=== PATIENT | male | born 1985 | race African-American/Black ===

== ENCOUNTER 2016-03-14 12:01 | Inpatient (IN) | payer MEDICAID, OTHER ==
--- NOTE | 2016-03-14 12:25 | ED ---
General Adult HPI - General Chief complaint: Psychiatric Symptoms Stated complaint: Mental Health Time Seen by Provider: 03/14/16 12:05 Source: patient, RN notes reviewed Mode of arrival: ambulatory - History of Present Illness Initial comments: Long-standing history of depression and previous suicide attempts but not for many years. Patient states he was living in [place] he moved here recently in the last month got a job but was recently fired. Patient states he also is going through divorce a lot of stress in his life. Patient states for about a month now he has been very depressed and thinking about suicide. Patient states lately the thoughts become worse and he is worried is going to attempt something. Patient states he is also homeless. Patient denies any physical complaints today. Patient denies any headache patient denies numbness weakness. Patient denies any chest pain difficult breathing or shortness of breath per patient denies abdominal pain patient denies nausea vomiting or diarrhea. Patient denies any recent injury or trauma. Patient denies any alcohol use or drug use. - Related Data Home Medications Medication Instructions Recorded Confirmed OLANZapine 20 mg PO HS 03/14/16 03/14/16 carBAMazepine [TEGretol] 200 mg PO Q12H 03/14/16 03/14/16 clonazePAM [Clonazepam] 2 mg PO TID PRN 03/14/16 03/14/16 Allergies Allergy/AdvReac Type Severity Reaction Status Date / Time No Known Allergies Allergy Verified 03/14/16 13:36 Review of Systems ROS Statement: Those systems with pertinent positive or pertinent negative responses have been documented in the HPI. ROS Other: All systems not noted in ROS Statement are negative. Past Medical History Past Medical History: No Reported History History of Any Multi-Drug Resistant Organisms: None Reported Past Surgical History: Orthopedic Surgery Additional Past Surgical History / Comment(s): left arm, left jaw Past Psychological History: Bipolar, Depression Smoking Status: Never smoker Past Alcohol Use History: Occasional Past Drug Use History: None Reported General Exam - General Exam Comments Initial Comments: GENERAL: Patient is well-developed and well-nourished. Patient is nontoxic and well- hydrated and is in no acute distress. ENT: Neck is soft and supple. No significant lymphadenopathy is noted. Oropharynx is clear. Moist mucous membranes. Neck has full range of motion without eliciting any pain. EYES: The sclera were anicteric and conjunctiva were pink and moist. Extraocular movements were intact and pupils were equal round and reactive to light. Eyelids were unremarkable. PULMONARY: Unlabored respirations. Good breath sounds bilaterally. No audible rales rhonchi or wheezing was noted. CARDIOVASCULAR: There is a regular rate and rhythm without any murmurs gallops or rubs. ABDOMEN: Soft and nontender with normal bowel sounds. SKIN: Skin is clear with no lesions or rashes and otherwise unremarkable. NEUROLOGIC: Patient is alert and oriented x3. Cranial nerves II through XII are grossly intact. Motor and sensory are also intact. Normal speech, volume and content. Symmetrical smile. MUSCULOSKELETAL: Normal extremities with adequate strength and full range of motion. No lower extremity swelling or edema. No calf tenderness. LYMPHATICS: No significant lymphadenopathy is noted PSYCHIATRIC: Patient states she is suicidal. Patient is very flat affect. Patient seems pretty upset with the fact that his life is in disarray at the moment. Course Vital Signs 03/14/16 03/14/16 12:07 13:59 Temperature 98.9 F Pulse Rate 85 Respiratory 18 14 Rate Blood Pressure 121/67 O2 Sat by Pulse 99 Oximetry Medical Decision Making - Lab Data Lab Results 03/14/16 Range/Units 13:10 Urine Opiates Screen Detected H (NotDetected) Ur Oxycodone Screen Not Detected (NotDetected) Urine Methadone Screen Not Detected (NotDetected) Ur Propoxyphene Screen Not Detected (NotDetected) Ur Barbiturates Screen Not Detected (NotDetected) U Tricyclic Antidepress Not Detected (NotDetected) Ur Phencyclidine Scrn Not Detected (NotDetected) Ur Amphetamines Screen Not Detected (NotDetected) U Methamphetamines Scrn Not Detected (NotDetected) U Benzodiazepines Scrn Not Detected (NotDetected) Urine Cocaine Screen Not Detected (NotDetected) U Marijuana (THC) Screen Detected H (NotDetected) Disposition Clinical Impression: Depression, Suicidal ideation Disposition: ADMITTED IP TO THIS [facility] Time of Disposition: 14:57
[2016-03-14] MEDS ORDERED: MAGNESIUM HYDROXIDE 2,400 MG/10 ML CUP PO PRN (16:55)
[2016-03-14] MEDS ORDERED: ZIPRASIDONE 20 MG VIAL IM PRN (16:55)
[2016-03-14] MEDS ORDERED: MAG HYDROX/AL HYDROX/SIMETH 30 ML CUP PO PRN (16:55)
[2016-03-14] MEDS ORDERED: ACETAMINOPHEN TAB 325 MG TAB PO PRN (16:55)
[2016-03-14] MEDS ORDERED: LORazepam 2 MG/ML SYRINGE IM PRN (16:59)
[2016-03-14 17:13] LABS: Appearance,Urine Clear (Clear); Bilirubin,Urine Negative (Negative); Glucose,Urine (UA) Negative (Negative); Ketones,Urine Negative (Negative); Leukocyte Esterase,Urine Negative (Negative); Nitrite,Urine Negative (Negative); Protein,Urine Negative (Negative); UA Billing (MACRO vs. MICRO) CHEM; Urobilinogen,Urine <2.0 mg/dL (<2.0)
[2016-03-14] MEDS ORDERED: WATER FOR INJECTION, STERILE 10 ML IV ONE (21:04)
[2016-03-14] MEDS ORDERED: ZIPRASIDONE 20 MG VIAL IM ONE (21:04)
[2016-03-14] MEDS: carBAMazepine 200 MG TAB PO SCH (22:38)
[2016-03-14] MEDS: OLANZapine 10 MG TAB PO SCH (22:39)
[2016-03-15] MEDS: LORazepam 1 MG TAB PO PRN ×2 (10:07→22:49)
[2016-03-15] MEDS: carBAMazepine 200 MG TAB PO SCH ×2 (10:07→21:36)
[2016-03-15 10:08] LABS: Basophils # (A) 0.1 k/uL (0-0.2); Basophils % (A) 1 %; CH 29.9; CHCM 34.3; Eosinophils # (A) 0.2 k/uL (0-0.7); Eosinophils % (A) 3 %; HDW 2.24; HGB 15.4 gm/dL (13.0-17.5); Luc # (Auto) 0.12; Luc % (Auto) 2; Lymphocytes # (A) 2.5 k/uL (1.0-4.8); Lymphocytes % (A) 47 %; MCH 29.4 pg (25.0-35.0); MCHC 33.5 g/dL (31.0-37.0); MCV 87.6 fL (80.0-100.0); Mean Platelet Volume 6.7; Monocytes # (A) 0.3 k/uL (0-1.0); Monocytes % (A) 6 %; Neutrophils # (A) 2.2 k/uL (1.3-7.7); Neutrophils % (A) 41 %; RBC 5.25 m/uL (4.30-5.90); RDW 12.2 % (11.5-15.5); WBC 5.3 k/uL (3.8-10.6); WBC (Perox) 5.35
[2016-03-15 11:34] LABS: ALT 35 U/L (21-72); AST 22 U/L (17-59); Alkaline Phosphatase 62 U/L (38-126); Anion Gap 9 mmol/L; Blood Urea Nitrogen 15 mg/dL (9-20); Calcium 9.2 mg/dL (8.4-10.2); Carbamazepine (Tegretol) <3.0 ug/mL; Carbon Dioxide 26 mmol/L (22-30); Chloride 106 mmol/L (98-107); Glucose 90 mg/dL (74-99); Non-African American GFR(MDRD) >60 (>60 ml/min/1.73 sqM); Potassium 4.2 mmol/L (3.5-5.1); Sodium 141 mmol/L (137-145); Total Bilirubin 0.5 mg/dL (0.2-1.3)
[2016-03-15] MEDS ORDERED: LORazepam 1 MG TAB PO STA (13:41)
--- NOTE | 2016-03-15 13:44 | P.HP ---
Psychiatric H&P - . H&P Date: 03/15/16 History & Physical: IDENTIFYING DATA: Mr. Benton is a 31-year-old -[place] male who presented voluntarily to the psychiatric unit. HISTORY OF PRESENT ILLNESS: He presented to the ED on 03/14/2016 with complaints of hopelessness, increasing depression and thoughts of suicide. The Mobile Crisis Team evaluated him and recommended discharge. The ED was planning to discharge him home when he made a statement that if he went home he would "hurt himself". When the EPS nurse evaluated him in the ED he was angry and demanding food. However he denied suicidal ideation, plan or intent. Once on the psychiatric unit he was agitated, screaming and threatening staff. He was demanding "sleeping medications". His behavior escalated to where he required administration of Geodon 20 mg and lorazepam 1 mg IM. During our interview he complained of anxiety and requested a prescription for his anxiety. He also complained of depression related to several stressors. He from his and moved back to [place] 2 months ago. He lived for one week with his family but left because he purportedly didn't want to impose on their hospitality. He is now living in the basement of a amish, [facility]. He stated he may return and the marketing and communications officer does not charge him rent only requires him to attend services. He was terminated from his job with a [employer] 2 days prior to admission. He worked there for the company for 2 weeks and was discharged for poor performance. He also expressed concern about his 10-year-old daughter who appears to have a congenital heart abnormality and may require surgery. During our interview he denied thoughts of or suicide. He was medication seeking and repeatedly asked to receive lorazepam. He described feelings depression and he alleged that he has poor sleep with difficulty falling and remaining asleep. He complained of guilt over the separation from his and loss of employment. He described restlessness. He denied decreased interest or pleasure in his usual activities, impairment in concentration, changes in appetite. He denied psychotic symptoms such as auditory or visual hallucinations, ideas reference, thought insertion, thought broadcasting or thought control. He denied use of drugs with the exception of marijuana. He denied use of alcohol. PAST PSYCHIATRIC HISTORY: This is his third admission to this psychiatric unit; the last was in July 2011 where he presented with restlessness, feelings depression and increase in anxiety. He expressed suicidal ideation with a plan to cut his wrists with a knife or take overdose of prescription medications. His discharge diagnoses included bipolar disorder, mixed, generalized anxiety disorder, panic disorder with agoraphobia and cluster B personality traits. He stated that he is enrolled with [facility] and Dr. Romano is his psychiatrist. He is unaware of his current medications. He stated that he was hospitalized "6 or 7 times" when he lived in [place] for 2 years. According to the medical record she has a history of ADHD. ALLERGIES: NO KNOWN DRUG ALLERGIES.. SUBSTANCE USE HISTORY: He has a history of cannabis use and has incurred legal problems as resulted marijuana possession. He denied the use of other drugs such as heroin, cocaine, crack cocaine, methamphetamine etc. He was involved in a substance abuse treatment program when he was incarcerated because his UDS was positive for marijuana. FAMILY PSYCHIATRIC/SUBSTANCE USE HISTORY: He is unaware of a family history of mental illness. LEGAL HISTORY: He was in halfway in 2014 for charges of assault and battery and 2 control substance possession offense. He has had multiple arrests for charges such as home invasion, possession of marijuana, disturbing the peace and domestic violence. He has no felony charges. He denied pending charges. He is not on probation or parole. SOCIAL HISTORY: He was born in [facility] to an intact family. He left school in the 10th grade. He was in special education. He had suspensions related to behavioral problems but denied that he was expelled. He did not obtain his GED. He could not explain the reason for leaving school in the 10th grade other than he "did not like it" and his parents did not insist that her return. After he left school he "partied". He is currently unemployed and receives social security disability. He stated he has been receiving services security disability since he was a child. He from his of 2 years. He has one child age 10 out of wedlock. The daughter lives with her mother. MENTAL STATUS EXAM: He presented as a casually groomed and casually dressed 31- year-old -[place] male who is moderately obese. He maintained eye contact and attended the interview. He had a 8 cm healed laceration on his left forearm and tattoos along the medial aspect of both forearms. He had a bright facial expression. He was alert and oriented to person, place and time. He demonstrated no abnormality of psychomotor activity. He had no abnormal movements. His speech was spontaneous with normal rate, rhythm and volume. He had no articulation difficulties. His affect was stable, appropriate to the situation and setting. He did not appear depressed, anxious or elated. He denied suicidal ideation or wishes. He denied homicidal ideation. He denied feeling hopeless, helpless or worthless. He denied ideas of reference and did not express paranoid ideation. His thinking was concrete but his associations were coherent and logical. He did not demonstrate clang associations, perseveration, neologisms or blocking. He denied hallucinations and did not appear to be responding to internal stimuli. Global impression of intellect is below average. He has some awareness or understanding of his need for mental health treatment. STRENGTHS: Stable income, apparently stable housing, supportive family, good physical health. WEAKNESSES: Impulsivity, continued marijuana use. IMPRESSION: He has a 31-year-old male who presented with complaints of depression, irritability and anger. He says periods of increasing anger when his immediate needs are are not met. Otherwise he is pleasant on approach and denies symptoms other than anxiety and feelings of depression. There is no evidence of psychosis and he does not demonstrate sustained elevation in mood or sustained irritability suggestive of kaylie or hypomania. He has a history of marijuana use but denied use of other drugs. He has either mild mental retardation or learning disability. His presentation appears per related to several stresses including suboptimal housing, loss of employment and recent divorce. We will restart his outpatient treatment regimen didn't discharge him to outpatient services through [facility]. PRINCIPLE DIAGNOSIS: Adjustment disorder with disturbance of mood and conduct, cannabis use disorder, rule out bipolar disorder depressed RECOMMENDATION: Continue voluntary hospitalization for complaints of depression and anxiety. Obtain records from [facility] to clarify his outpatient treatment history and psychotropic medications. Continue Tegretol 20 mg every 12 and olanzapine 20 mg at bedtime. Continue Geodon 20 mg IM twice a day when necessary for agitation as well as lorazepam 1 mg by mouth/IM every 8 hours when necessary for agitation, encourage participation in therapeutic groups and activities. Clinical status response to treatment on a daily basis. Consider discharge to [facility] on 03/16/2016. Allergies Allergy/AdvReac Type Severity Reaction Status Date / Time No Known Allergies Allergy Verified 03/14/16 13:36 Vital Signs Temp 97.8 F 03/15/16 06:43 Pulse 61 03/15/16 06:43 Resp 18 03/15/16 06:43 BP 105/71 03/15/16 06:43 Pulse Ox 99 03/14/16 16:30 Intake & Output 03/14/16 03/15/16 03/15/16 18:59 06:59 18:59 Weight 115.2 kg Laboratory Last Values Urine Color Yellow 03/14/16 13:10 Urine Appearance Clear (Clear) 03/14/16 13:10 Urine pH 6.0 (5.0-8.0) 03/14/16 13:10 Ur Specific [place] 1.020 (1.001-1.035) 03/14/16 13:10 Urine Protein Negative (Negative) 03/14/16 13:10 Urine Glucose (UA) Negative (Negative) 03/14/16 13:10 Urine Ketones Negative (Negative) 03/14/16 13:10 Urine Blood Negative (Negative) 03/14/16 13:10 Urine Nitrate Negative (Negative) 03/14/16 13:10 Urine Bilirubin Negative (Negative) 03/14/16 13:10 Urine Urobilinogen <2.0 mg/dL (<2.0) 03/14/16 13:10 Ur Leukocyte Esterase Negative (Negative) 03/14/16 13:10 Urine Opiates Screen Detected (NotDetected) H 03/14/16 13:10 Ur Oxycodone Screen Not Detected (NotDetected) 03/14/16 13:10 Urine Methadone Screen Not Detected (NotDetected) 03/14/16 13:10 Ur Propoxyphene Screen Not Detected (NotDetected) 03/14/16 13:10 Ur Barbiturates Screen Not Detected (NotDetected) 03/14/16 13:10 U Tricyclic Antidepress Not Detected (NotDetected) 03/14/16 13:10 Ur Phencyclidine Scrn Not Detected (NotDetected) 03/14/16 13:10 Ur Amphetamines Screen Not Detected (NotDetected) 03/14/16 13:10 U Methamphetamines Scrn Not Detected (NotDetected) 03/14/16 13:10 U Benzodiazepines Scrn Not Detected (NotDetected) 03/14/16 13:10 Urine Cocaine Screen Not Detected (NotDetected) 03/14/16 13:10 U Marijuana (THC) Screen Detected (NotDetected) H 03/14/16 13:10 03/15/16 08:00 03/15/16 13:05 03/15/16 13:18
--- NOTE | 2016-03-15 15:24 | P.CONS ---
History of Present Illness - Reason for Consult Consult date: 03/15/16 Medical management - History of Present Illness This is a 31-year-old -Ang[place] male. He does not have a primary care physician. He has a past medical history of bipolar and depression, tobacco use and dependence, marijuana use. Patient apparently recently moved from [place] to the area. He has established himself with Dr. Romano from psychiatry. He states he has had long-term depression with suicidal thoughts over the past week. He states he is going through divorce and their health problems with his daughter. Patient denies taking any action regarding his suicidal thoughts. Patient came into [facility]. Urine drug screen was positive for opiates and marijuana. TSH 1.940. Patient was admitted to the mental health unit. Patient has had aggressive behavior today requiring multiple security guards but he is currently very cooperative for us. Patient states he has chronic muscle spasms in his back. Review of Systems All systems: negative Constitutional: Denies chills, Denies fever Eyes: denies blurred vision, denies pain Ears, nose, mouth and throat: Denies headache, Denies sore throat Cardiovascular: Denies chest pain, Denies shortness of breath Respiratory: Denies cough Gastrointestinal: Denies abdominal pain, Denies diarrhea, Denies nausea, Denies vomiting Musculoskeletal: Denies myalgias Integumentary: Denies pruritus, Denies rash Neurological: Denies numbness, Denies weakness Psychiatric: Reports depression, Reports hopelessness, Reports suicidal ideation , Denies anxiety Endocrine: Denies fatigue, Denies weight change Past Medical History Past Medical History: No Reported History History of Any Multi-Drug Resistant Organisms: None Reported Past Surgical History: Orthopedic Surgery Additional Past Surgical History / Comment(s): ORIF left arm, nasal surgery due to fracture, left jaw Past Psychological History: Bipolar, Depression Smoking Status: Current every day smoker Past Alcohol Use History: Occasional Additional Past Alcohol Use History / Comment(s): Patient is a smoker of a 12: 45 half pack per day for 15 years. He also uses marijuana. He drinks alcohol occasionally. He denies any other street drug use. He states he is going through a divorce. He is currently homeless and living at a [facility]. Past Drug Use History: None Reported - Past Family History Father Additional Family Medical History / Comment(s): Father is alive at age 59 with history of hypertension. Mother Additional Family Medical History / Comment(s): Mother is alive at age 61 with history of coronary artery disease status post CABG, CVA. Brother(s) Additional Family Medical History / Comment(s): Patient has 2 brothers and one has problems with kidney stones. Patient has 1 sister with no major medical problems. Patient has 1 daughter that is having problems with her heart. Medications and Allergies Home Medications Medication Instructions Recorded Confirmed Type OLANZapine 20 mg PO HS 03/14/16 03/14/16 History carBAMazepine [TEGretol] 200 mg PO Q12H 03/14/16 03/14/16 History clonazePAM [Clonazepam] 2 mg PO TID PRN 03/14/16 03/14/16 History Allergies Allergy/AdvReac Type Severity Reaction Status Date / Time No Known Allergies Allergy Verified 03/14/16 13:36 Physical Exam Vitals: Vital Signs Temp Pulse Resp BP 03/15/16 06:43 97.8 F 61 18 105/71 03/14/16 22:28 98.7 F 67 15 126/70 Intake and Output 03/14/16 03/15/16 03/15/16 22:59 06:59 14:59 Other: Weight 115.2 kg Gen: This is a 31-year-old -[place] male. He is cooperative and appears to be in no acute distress. HEENT: Head is atraumatic, normocephalic. Pupils equal, round. Sclerae is anicteric. NECK: Supple. No JVD. No lymphadenopathy. No thyromegaly. LUNGS: Clear to auscultation. No wheezes or rhonchi. No intercostal retractions. HEART: Regular rate and rhythm. No murmur. ABDOMEN: Soft. Bowel sounds are present. No masses. No tenderness. EXTREMITIES: No pedal edema. No calf tenderness. NEUROLOGICAL: Patient is awake, alert and oriented x3. Cranial nerves 2 through 12 are grossly intact. Results CBC & Chem 7: 03/15/16 09:12 03/15/16 09:12 Assessment and Plan Plan: 1. Depression with suicidal thoughts. Patient admitted to the mental health unit. Continue current plan of care. 2. Tobacco use and dependence. Continue nicotine patch. 3. Marijuana use. Continue as in #1. 4. Chronic low back pain, stable. Continue Tylenol as needed. Impression and plan of care have been directed as dictated by the signing physician. Moraima Jacob nurse practitioner acting as scribe for signing physician. Time with Patient: Greater than 30
[2016-03-15] MEDS: OLANZapine 10 MG TAB PO SCH (21:36)
[2016-03-16 06:05] VITALS: BP 116/76; PULSE 62; RESP 20; TEMP 97.5
[2016-03-16] MEDS: carBAMazepine 200 MG TAB PO SCH (08:40)
[2016-03-16] MEDS ORDERED: FAMOTIDINE 20 MG TAB PO SCH (09:00)
[2016-03-16] MEDS ORDERED: NICOTINE 14MG/24HR PATCH TRANSDERM SCH (09:00)
--- NOTE | 2016-03-16 11:04 | P.DS ---
Providers Date of admission: 03/14/16 16:30 Attending physician: Caden Hubbard MD Consults: 03/14/16 16:55 Consult Physician Routine Consulting Provider: Caden Beltran Consult Reason/Comments: Follow Up H & P Do you want consulting provider notified?: Yes Primary care physician: Stated None - Discharge Diagnosis(es) (1) Adjustment disorder with mixed disturbance of emotions and conduct Status: Resolved Priority: Low (2) Cannabis use disorder, mild, abuse Status: Chronic Priority: Medium (3) Opioid use disorder, mild, abuse Status: Chronic Priority: Medium (4) Suicidal ideation Status: Resolved Priority: Low Hospital Course: Mr. Benton is a 31-year-old -Mexican male who presented voluntarily to the psychiatric unit. He presented to the ED on 03/14/2016 with complaints of hopelessness, increasing depression and thoughts of suicide. The Mobile Crisis Team evaluated him and recommended discharge. The ED was planning to discharge him home when he made a statement that if he went home he would "hurt himself". When the EPS nurse evaluated him in the ED he was angry and demanding food. However he denied suicidal ideation, plan or intent. Once on the psychiatric unit he was agitated, screaming and threatening staff. He was demanding "sleeping medications". His behavior escalated to where he required administration of Geodon 20 mg and lorazepam 1 mg IM. During our interview he complained of anxiety and requested a prescription for his anxiety. He also complained of depression related to several stressors. He from his and moved back to [place] 2 months ago. He lived for one week with his family but left because he purportedly didn't want to impose on their hospitality. He is now living in the basement of a mandaen, [facility]. He stated he may return and the sales enablement lead does not charge him rent only requires him to attend services. He was terminated from his job with a [employer] 2 days prior to admission. He worked there for the [employer] for 2 weeks and was discharged for poor performance. He also expressed concern about his 10-year-old daughter who appears to have a congenital heart abnormality and may require surgery. During our interview he denied thoughts of or suicide. He was medication seeking and repeatedly asked to receive lorazepam. He described feelings depression and he alleged that he has poor sleep with difficulty falling and remaining asleep. He complained of guilt over the separation from his and loss of employment. He described restlessness. He denied decreased interest or pleasure in his usual activities, impairment in concentration, changes in appetite. He denied psychotic symptoms such as auditory or visual hallucinations, ideas reference, thought insertion, thought broadcasting or thought control. He denied use of drugs with the exception of marijuana. He denied use of alcohol. This is his third admission to this psychiatric unit; the last was in July 2011 where he presented with restlessness, feelings depression and increase in anxiety. He expressed suicidal ideation with a plan to cut his wrists with a knife or take overdose of prescription medications. His discharge diagnoses included bipolar disorder, mixed, generalized anxiety disorder, panic disorder with agoraphobia and cluster B personality traits. He stated that he is enrolled with [facility] and Dr. Romano is his psychiatrist. He is unaware of his current medications. He stated that he was hospitalized "6 or 7 times" when he lived in [place] for 2 years. According to the medical record she has a history of ADHD. We admitted him voluntarily to the psychiatric unit under the care of this script writer. We provided a biopsychosocial assessment. The healthcare risk control consultant clinical sociologist completed the initial physical exam and medical history. The medical diagnoses include tobacco use disorder, marijuana use and chronic low back pain. His UDS was positive for opiates and cannabinoids. He admitted to using marijuana but denied use of opiate (he has a history of use of oral opioid pain medications). We continued his outpatient medications: Tegretol 200 mg every 12 hours and olanzapine 200 mg at bedtime. He had intermitted episodes of anger dyscontrol require administration of Geodon 20 mg and/or lorazepam 1 mg. The episodes of behavioral dyscontrol occurred in situations where he did not feel that his needs were met, e.g. When the wrong food item was included on his breakfast tray. We declined his request for clonazepam 2 mg 3 times a day because clonazepam was not included in his active perceptions list from [facility]. At time of discharge she denied thoughts of or suicide. He denied homicidal ideation. He denied psychotic symptoms such as auditory or visual hallucinations, ideas reference, thought insertion, thought broadcasting or thought control. He denied feeling depressed. He plan to live with his parents temporarily before he returns to the basement apartment after discharge. He has a follow-up appointment at [facility] on the day of discharge. Patient Condition at Discharge: Good Plan - Discharge Summary New Discharge Prescriptions: Famotidine [Pepcid] 20 mg PO DAILY 30 Days Nicotine 14Mg/24Hr Patch [Habitrol] 1 patch TRANSDERM DAILY #14 patch OLANZapine 20 mg PO HS #30 tablet carBAMazepine [TEGretol] 200 mg PO Q12H 30 Days Discharge Medication List Famotidine [Pepcid] 20 mg PO DAILY 30 Days 03/16/16 [Rx] Nicotine 14Mg/24Hr Patch [Habitrol] 1 patch TRANSDERM DAILY #14 patch 03/16/16 [ Rx] OLANZapine 20 mg PO HS #30 tablet 03/16/16 [Rx] carBAMazepine [TEGretol] 200 mg PO Q12H 30 Days 03/16/16 [Rx] Follow up Appointment(s)/Referral(s): [facility] [Outside] - 03/16/16 3:30 pm (Appt w/ Rachael Lund (ROD) 03/17/16 at 12:40 pm w/ Dr. Romano) None,Stated [Primary Care Provider] - 1-2 days Patient Instructions/Handouts: How to Stop Smoking (GEN) Discharge Disposition: HOME SELF-CARE
== END 2016-03-16 09:58 | disposition home or self-care (01) | DRG 882 ==
LOC: EC 12:01 → 3MHU 16:30
PROVIDERS: ADMIT Psychiatry & Neurology Psychiatry; ATTEND Psychiatry & Neurology Psychiatry
DX: F43.25 Adjustment disorder with mixed disturbance of emotions and conduct (principal); R45.851 Suicidal ideations; F11.10 Opioid abuse, uncomplicated; F12.90 Cannabis use, unspecified, uncomplicated; F17.200 Nicotine dependence, unspecified, uncomplicated; Z59.0 Homelessness; Z91.5 Personal history of self-harm; Z79.899 Other long term (current) drug therapy
CPT/HCPCS: 80053; 80156; 80306; 81003; 82075; 84443; 85025

== ENCOUNTER 2016-05-15 01:15 | Emergency (ER) | payer OTHER ==
[2016-05-15] MEDS ORDERED: IPRATROPIUM-ALBUTEROL 3 ML NEB INHALATION STA (01:42)
--- NOTE | 2016-05-15 01:51 | ED ---
URI HPI - General Chief Complaint: Upper Respiratory Infection Stated Complaint: cough Time Seen by Provider: 05/15/16 01:35 Source: patient, RN notes reviewed Mode of arrival: ambulatory Limitations: no limitations - History of Present Illness Initial Comments: Patient is a 29-year-old male with chief complaint of cough and fatigue for the past 2 days. Patient reports that he has flulike symptoms including body aches. He hasn't been taking Motrin or Tylenol. He denies any fever. He states he does have a mild sore throat. He denies any nausea or vomiting or abdominal pain. He does have a history of asthma and is a smoker. He states that he's noticed that his asthma is been acting up and he sat to use his inhaler more. Patient reports that he has noticed some blood tinges towards his cough. Patient denies vomiting, nausea, headache, vision changes, chest pain , abdominal pain, diarrhea. - Related Data Previous Rx's Medication Instructions Recorded Azithromycin [Zithromax Z-pack] 250 mg PO DIRECTED #6 tab 05/15/16 methylPREDNISolone Dose Pack 4 mg PO DIRECTED #21 package 05/15/16 [Medrol Dose Pack] Allergies Allergy/AdvReac Type Severity Reaction Status Date / Time No Known Allergies Allergy Verified 05/15/16 01:34 Review of Systems ROS Statement: Those systems with pertinent positive or pertinent negative responses have been documented in the HPI. ROS Other: All systems not noted in ROS Statement are negative. Past Medical History Past Medical History: No Reported History History of Any Multi-Drug Resistant Organisms: None Reported Past Surgical History: Orthopedic Surgery Additional Past Surgical History / Comment(s): ORIF left arm, nasal surgery due to fracture, left jaw Past Psychological History: Bipolar, Depression Smoking Status: Current every day smoker Past Alcohol Use History: Occasional Additional Past Alcohol Use History / Comment(s): Patient is a smoker of a 12: 45 half pack per day for 15 years. He also uses marijuana. He drinks alcohol occasionally. He denies any other street drug use. He states he is going through a divorce. He is currently homeless and living at a [facility]. Past Drug Use History: None Reported - Past Family History Father Additional Family Medical History / Comment(s): Father is alive at age 59 with history of hypertension. Mother Additional Family Medical History / Comment(s): Mother is alive at age 61 with history of coronary artery disease status post CABG, CVA. Brother(s) Additional Family Medical History / Comment(s): Patient has 2 brothers and one has problems with kidney stones. Patient has 1 sister with no major medical problems. Patient has 1 daughter that is having problems with her heart. General Exam - General Exam Comments Initial Comments: Well-appearing 31-year-old male. No acute distress. Limitations: no limitations General appearance: alert, in no apparent distress Head exam: Present: atraumatic, normocephalic, normal inspection Eye exam: Present: normal appearance, PERRL, EOMI. Absent: scleral icterus, conjunctival injection, periorbital swelling ENT exam: Present: normal exam, mucous membranes moist Neck exam: Present: normal inspection. Absent: tenderness, meningismus, lymphadenopathy Respiratory exam: Present: normal lung sounds bilaterally, wheezes (Bilateral wheezing.). Absent: respiratory distress, rales, rhonchi, stridor Cardiovascular Exam: Present: regular rate, normal rhythm, normal heart sounds. Absent: systolic murmur, diastolic murmur, rubs, gallop, clicks GI/Abdominal exam: Present: soft, normal bowel sounds. Absent: distended, tenderness, guarding, rebound, rigid Extremities exam: Present: normal inspection, full ROM, normal capillary refill. Absent: tenderness, pedal edema, joint swelling, calf tenderness Back exam: Present: normal inspection Neurological exam: Present: alert, oriented X3, CN II-XII intact Psychiatric exam: Present: normal affect, normal mood Skin exam: Present: warm, dry, intact, normal color. Absent: rash Course Vital Signs 05/15/16 05/15/16 05/15/16 01:32 01:49 01:59 Temperature 98.7 F Pulse Rate 93 94 94 Respiratory 18 Rate Blood Pressure 125/63 O2 Sat by Pulse 99 Oximetry 05/15/16 03:00 Temperature 98.8 F Pulse Rate 98 Respiratory 20 Rate Blood Pressure 139/89 O2 Sat by Pulse 97 Oximetry Medical Decision Making - Medical Decision Making Patient is a 29-year-old male with chief complaint of cough and fatigue for the past 2 days. Patient reports that he has flulike symptoms including body aches. He hasn't been taking Motrin or Tylenol. He denies any fever. He states he does have a mild sore throat. He denies any nausea or vomiting or abdominal pain. He does have a history of asthma and is a smoker. He states that he's noticed that his asthma is been acting up and he sat to use his inhaler more. Peggyt does have some wheezing over bilateral lung bases. Patient given Duoneb treatment. CXR is negative. Patient will be discharged with medrol dose pack and azithromycin for the productive cough. Return parameters discussed. - Lab Data Lab Results 05/15/16 05/15/16 Range/Units 01:40 01:44 Influenza Type A RNA Not Detected (Not Detectd) Influenza Type B (PCR) Not Detected (Not Detectd) Group A Strep Rapid Negative (Negative) - Radiology Data Radiology results: report reviewed Chest x-ray shows no significant change. No evidence of pneumonia or pleural effusions. Disposition Clinical Impression: Cough, Fatigue Disposition: HOME SELF-CARE Condition: Good Instructions: Upper Respiratory Infection (ED) Additional Instructions: Rest, increase fluids and take medications as prescribed. Stop smoking. Follow -up with a primary care provider. Complete antibiotic and steroid prescription as directed. Return to emergency department if any worsening signs or symptoms occur. Prescriptions: Azithromycin [Zithromax Z-pack] 250 mg PO DIRECTED #6 tab methylPREDNISolone Dose Pack [Medrol Dose Pack] 4 mg PO DIRECTED #21 package Referrals: None,Stated [Primary Care Provider] - 1-2 days Jenni Hess MD [STAFF PHYSICIAN] - 1-2 days Time of Disposition: 02:44
--- NOTE | 2016-05-15 02:06 | XR ---
EXAM: XR Chest, 2 Views. CLINICAL HISTORY: Reason: Pain TECHNIQUE: Frontal and lateral views of the chest. COMPARISON: 02/11/16 radiographs FINDINGS: Lungs: The lungs are stable without new focal infiltrate. Pleural space: Unremarkable. No pneumothorax. Heart: Unremarkable. No cardiomegaly. Mediastinum: Unremarkable. Bones/joints: Unremarkable. IMPRESSION: No significant change. No new acute intrathoracic abnormality is seen.
[2016-05-15] MEDS ORDERED: guaiFENesin-DM 100-10MG/5ML 10 ML CUP PO STA (02:48)
[2016-05-15] MEDS ORDERED: PROMETHAZ-COD 6.25-10 MG/5 ML 5 ML CUP PO STA (02:52)
[2016-05-15 03:01] VITALS: BP 139/89; PULSE 98; RESP 20; TEMP 98.8
== END 2016-05-15 03:00 | disposition home or self-care (01) ==
LOC: EC 01:15
DX: R05 Cough (principal); R53.83 Other fatigue; J02.9 Acute pharyngitis, unspecified; J45.909 Unspecified asthma, uncomplicated; F17.200 Nicotine dependence, unspecified, uncomplicated
CPT/HCPCS: 71020; 87081; 87430; 87502; 94640; 99284

== ENCOUNTER 2016-06-19 12:13 | Emergency (ER) | payer OTHER ==
[2016-06-19 12:22] VITALS: PULSE 68; RESP 18
--- NOTE | 2016-06-19 12:23 | ED ---
General Adult HPI - General Stated complaint: suicidal Time Seen by Provider: 06/19/16 12:13 Source: RN notes reviewed - History of Present Illness Initial comments: This is a 31-year-old male who presents emergency department with past medical history significant for bipolar. Patient states she's on medications but he stopped taking them 2 months ago. Patient comes in today because he states over the last few days he's been having more more suicidal thoughts and is afraid to take a knife and cut his wrists. Patient states she's also homicidal but not toward anyone person just generally feels like he might harm somebody else. Patient denies any drug use or alcohol use. Patient denies any physical complaints today. Patient denies headache patient denies numbness weakness. Patient denies lightheadedness dizziness or near syncopal episode. Patient denies chest pain palpitations difficulty breathing shortness of breath. Patient denies abdominal pain patient denies nausea vomiting or diarrhea. - Related Data Home Medications Medication Instructions Recorded Confirmed carBAMazepine [Carbamazepine] 200 mg PO BID 06/19/16 06/19/16 clonazePAM [KlonoPIN] 2 mg PO TID PRN 06/19/16 06/19/16 Allergies Allergy/AdvReac Type Severity Reaction Status Date / Time No Known Allergies Allergy Verified 06/19/16 12:35 Review of Systems ROS Statement: Those systems with pertinent positive or pertinent negative responses have been documented in the HPI. ROS Other: All systems not noted in ROS Statement are negative. Past Medical History Past Medical History: No Reported History History of Any Multi-Drug Resistant Organisms: None Reported Past Surgical History: Orthopedic Surgery Additional Past Surgical History / Comment(s): ORIF left arm, nasal surgery due to fracture, left jaw Past Psychological History: Bipolar, Depression Smoking Status: Current every day smoker Past Alcohol Use History: Occasional Additional Past Alcohol Use History / Comment(s): Patient is a smoker of a 12: 45 half pack per day for 15 years. He also uses marijuana. He drinks alcohol occasionally. He denies any other street drug use. He states he is going through a divorce. He is currently homeless and living at a [facility]. Past Drug Use History: None Reported - Past Family History Father Additional Family Medical History / Comment(s): Father is alive at age 59 with history of hypertension. Mother Additional Family Medical History / Comment(s): Mother is alive at age 61 with history of coronary artery disease status post CABG, CVA. Brother(s) Additional Family Medical History / Comment(s): Patient has 2 brothers and one has problems with kidney stones. Patient has 1 sister with no major medical problems. Patient has 1 daughter that is having problems with her heart. General Exam - General Exam Comments Initial Comments: GENERAL: Patient is well-developed and well-nourished. Patient is nontoxic and well- hydrated and is in no acute distress. ENT: Neck is soft and supple. No significant lymphadenopathy is noted. Oropharynx is clear. Moist mucous membranes. . EYES: The sclera were anicteric and conjunctiva were pink and moist. Extraocular movements were intact and pupils were equal round and reactive to light. Eyelids were unremarkable. PULMONARY: Unlabored respirations. Good breath sounds bilaterally. No audible rales rhonchi or wheezing was noted. CARDIOVASCULAR: There is a regular rate and rhythm without any murmurs gallops or rubs. ABDOMEN: Soft and nontender with normal bowel sounds. SKIN: Skin is clear with no lesions or rashes and otherwise unremarkable. NEUROLOGIC: Patient is alert and oriented x3. Cranial nerves II through XII are grossly intact. Motor and sensory are also intact. Normal speech, volume and content. Symmetrical smile. MUSCULOSKELETAL: Normal extremities with adequate strength and full range of motion. LYMPHATICS: No significant lymphadenopathy is noted PSYCHIATRIC: Patient states he suicidal and homicidal. Patient is not homicidal any specific individual however he does have a plan for suicide he states the right his wrists Course Vital Signs 06/19/16 12:16 Temperature 98.0 F Pulse Rate 68 Respiratory 18 Rate Blood Pressure 131/77 O2 Sat by Pulse 100 Oximetry Disposition Clinical Impression: Bipolar disorder Disposition: HOME SELF-CARE Instructions: Bipolar Disorder (ED) Additional Instructions: Patient will be following up with [facility]. [facility] will be giving the patient arrived home and developing a safety plan for the patient Time of Disposition: 14:00
[2016-06-19 15:21] VITALS: BP 125/74; TEMP 98.2
== END 2016-06-19 15:20 | disposition home or self-care (01) ==
LOC: EC 12:13
DX: F31.9 Bipolar disorder, unspecified (principal); F17.200 Nicotine dependence, unspecified, uncomplicated; Z79.899 Other long term (current) drug therapy
CPT/HCPCS: 80306; 82075; 99285

== ENCOUNTER 2016-06-20 15:33 | Inpatient (IN) | payer MEDICAID, OTHER ==
--- NOTE | 2016-06-20 15:54 | ED ---
General Adult HPI - General Chief complaint: Psychiatric Symptoms Stated complaint: Psych Time Seen by Provider: 06/20/16 15:44 Source: patient, police, EMS, RN notes reviewed Mode of arrival: EMS Limitations: no limitations - History of Present Illness Initial comments: Patient is a 31-year-old male presenting to the emergency Department with aggression and anger. Patient is brought in by police. Patient admits to feeling suicidal yesterday however states those thoughts have passed. Patient states he does normally get angry following an episode of depression and suicidal thoughts. Patient states his thoughts are more of anger rather than specific thoughts of killing people. Patient [facility] where he was informed he would not be receiving additional Klonopin. Reportedly patient made statements of homicidal ideation towards his parents. Police officers do state that [facility] did notify the parents. Patient denies physical complaints. No hallucinations. No alcohol or street drug use. - Related Data Home Medications Medication Instructions Recorded Confirmed carBAMazepine [Carbamazepine] 200 mg PO BID 06/19/16 06/20/16 clonazePAM [KlonoPIN] 2 mg PO TID PRN 06/19/16 06/20/16 Allergies Allergy/AdvReac Type Severity Reaction Status Date / Time No Known Allergies Allergy Verified 06/20/16 15:37 Review of Systems ROS Statement: Those systems with pertinent positive or pertinent negative responses have been documented in the HPI. ROS Other: All systems not noted in ROS Statement are negative. Constitutional: Denies: fever Eyes: Denies: eye pain ENT: Denies: ear pain Respiratory: Denies: cough Cardiovascular: Denies: chest pain Endocrine: Denies: fatigue Gastrointestinal: Denies: abdominal pain Genitourinary: Denies: dysuria Musculoskeletal: Denies: back pain Skin: Denies: rash Neurological: Denies: headache Psychiatric: Reports: depression. Denies: auditory hallucinations, visual hallucinations Past Medical History Past Medical History: No Reported History History of Any Multi-Drug Resistant Organisms: None Reported Past Surgical History: Orthopedic Surgery Additional Past Surgical History / Comment(s): ORIF left arm, nasal surgery due to fracture, left jaw Past Psychological History: Bipolar, Depression Smoking Status: Current every day smoker Past Alcohol Use History: Occasional Additional Past Alcohol Use History / Comment(s): Patient is a smoker of a 12: 45 half pack per day for 15 years. He also uses marijuana. He drinks alcohol occasionally. He denies any other street drug use. He states he is going through a divorce. He is currently homeless and living at a [facility]. Past Drug Use History: None Reported - Past Family History Father Additional Family Medical History / Comment(s): Father is alive at age 59 with history of hypertension. Mother Additional Family Medical History / Comment(s): Mother is alive at age 61 with history of coronary artery disease status post CABG, CVA. Brother(s) Additional Family Medical History / Comment(s): Patient has 2 brothers and one has problems with kidney stones. Patient has 1 sister with no major medical problems. Patient has 1 daughter that is having problems with her heart. General Exam Limitations: no limitations General appearance: alert, in no apparent distress Head exam: Present: atraumatic Eye exam: Present: normal appearance, PERRL ENT exam: Present: normal oropharynx Neck exam: Present: normal inspection Respiratory exam: Present: normal lung sounds bilaterally Cardiovascular Exam: Present: regular rate, normal rhythm GI/Abdominal exam: Present: soft. Absent: tenderness Extremities exam: Present: normal inspection Neurological exam: Present: alert Psychiatric exam: Present: normal affect, normal mood, other (Patient is cooperative at this time) Skin exam: Absent: rash Course Vital Signs 06/20/16 15:41 Temperature 98.2 F Pulse Rate 69 Respiratory 18 Rate Blood Pressure 114/56 O2 Sat by Pulse 98 Oximetry Medical Decision Making - Medical Decision Making Patient was seen by mental health services, who will admit. - Lab Data Lab Results 06/20/16 Range/Units 15:58 Urine Opiates Screen Not Detected (NotDetected) Ur Oxycodone Screen Not Detected (NotDetected) Urine Methadone Screen Not Detected (NotDetected) Ur Propoxyphene Screen Not Detected (NotDetected) Ur Barbiturates Screen Not Detected (NotDetected) U Tricyclic Antidepress Not Detected (NotDetected) Ur Phencyclidine Scrn Not Detected (NotDetected) Ur Amphetamines Screen Not Detected (NotDetected) U Methamphetamines Scrn Not Detected (NotDetected) U Benzodiazepines Scrn Detected H (NotDetected) Urine Cocaine Screen Not Detected (NotDetected) U Marijuana (THC) Screen Detected H (NotDetected) Disposition Clinical Impression: Homicidal ideation, Bipolar disorder Disposition: TRANSFER TO PSYCH HOSP/UNIT Time of Disposition: 17:01
[2016-06-20] MEDS ORDERED: ZIPRASIDONE 20 MG VIAL IM STA (18:00)
[2016-06-20] MEDS ORDERED: MAGNESIUM HYDROXIDE 2,400 MG/10 ML CUP PO PRN (20:31)
[2016-06-20] MEDS ORDERED: ZIPRASIDONE 20 MG VIAL IM PRN (20:31)
[2016-06-20] MEDS ORDERED: MAG HYDROX/AL HYDROX/SIMETH 30 ML CUP PO PRN (20:31)
[2016-06-20] MEDS ORDERED: LORazepam 2 MG/ML SYRINGE IM PRN (20:36)
[2016-06-20 20:58] VITALS: BMI 39.7
[2016-06-21] MEDS: LORazepam 1 MG TAB PO PRN ×3 (00:17→20:59)
[2016-06-21] MEDS: NICOTINE 21MG/24HR PATCH TRANSDERM SCH (08:19)
[2016-06-21 09:46] LABS: Basophils # (A) 0.1 k/uL (0-0.2); Basophils % (A) 1 %; CHCM 32.9; Eosinophils # (A) 0.2 k/uL (0-0.7); Eosinophils % (A) 2 %; HCT 49.2 % (39.0-53.0); HDW 2.08; HGB 16.4 gm/dL (13.0-17.5); Luc # (Auto) 0.14; Luc % (Auto) 2; Lymphocytes # (A) 2.8 k/uL (1.0-4.8); Lymphocytes % (A) 38 %; MCH 30.6 pg (25.0-35.0); MCHC 33.4 g/dL (31.0-37.0); MCV 91.5 fL (80.0-100.0); Mean Platelet Volume 6.9; Monocytes # (A) 0.3 k/uL (0-1.0); Monocytes % (A) 4 %; Neutrophils # (A) 3.8 k/uL (1.3-7.7); Neutrophils % (A) 53 %; RBC 5.37 m/uL (4.30-5.90); RDW 12.6 % (11.5-15.5); WBC 7.3 k/uL (3.8-10.6); WBC (Perox) 7.25
[2016-06-21 10:07] LABS: ALT 25 U/L (21-72); AST 22 U/L (17-59); Alkaline Phosphatase 60 U/L (38-126); Anion Gap 8 mmol/L; Blood Urea Nitrogen 15 mg/dL (9-20); Calcium 9.7 mg/dL (8.4-10.2); Carbon Dioxide 29 mmol/L (22-30); Chloride 103 mmol/L (98-107); Glucose 96 mg/dL (74-99); Non-African American GFR(MDRD) >60 (>60 ml/min/1.73 sqM); Potassium 4.2 mmol/L (3.5-5.1); Sodium 140 mmol/L (137-145); Total Bilirubin 1.4 mg/dL (0.2-1.3); Total Protein 7.9 g/dL (6.3-8.2)
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
[2016-06-21] MEDS: busPIRone HCl 10 MG TAB PO SCH ×2 (12:53→20:59)
--- NOTE | 2016-06-21 15:52 | P.CONS ---
History of Present Illness - Reason for Consult Consult date: 06/21/16 Medical management - History of Present Illness This is a 31-year-old -Kitt[place] male. He does not have a primary care physician. He has a past medical history of bipolar and depression, tobacco use and dependence, marijuana use. Patient apparently recently moved from [place] to the area. He has established himself with Dr. Romano from psychiatry. He states he has had long-term depression and had a previous admission in February of this year to [facility]. He was brought into [facility] emergency center by police with suicidal thoughts yesterday. Apparently troubles with aggression and anger. He did go to [facility] yesterday for additional Klonopin which was denied. He apparently had homicidal ideation toward his parents and parents were notified by [facility]. He states he is going through divorce and their health problems with his daughter. Patient denies taking any action regarding his suicidal thoughts. Urine drug screen was positive for benzodiazepines and marijuana. TSH 1.000. Patient was admitted to the mental health unit. Patient states he had homicidal thoughts and suicidal thoughts a few days ago. He states he normally gets shots of Abilify and has not been taking his Tegretol. He is complaining of a knot on the back of his head which is normal anatomy. Review of Systems All systems: negative Constitutional: Denies chills, Denies fever Eyes: denies blurred vision, denies pain Ears, nose, mouth and throat: Denies headache, Denies sore throat Cardiovascular: Denies chest pain, Denies shortness of breath Respiratory: Denies cough Gastrointestinal: Denies abdominal pain, Denies diarrhea, Denies nausea, Denies vomiting Musculoskeletal: Denies myalgias Integumentary: Denies pruritus, Denies rash Neurological: Denies numbness, Denies weakness Psychiatric: Reports depression, Reports hopelessness, Reports irritability, Reports suicidal ideation, Denies anxiety Endocrine: Denies fatigue, Denies weight change Past Medical History Past Medical History: No Reported History History of Any Multi-Drug Resistant Organisms: None Reported Past Surgical History: Orthopedic Surgery Additional Past Surgical History / Comment(s): ORIF left arm, nasal surgery due to fracture, left jaw, bilateral cataract removal and intraocular lens implants. Past Anesthesia/Blood Transfusion Reactions: No Reported Reaction Past Psychological History: Bipolar, Depression Smoking Status: Current every day smoker Past Alcohol Use History: Occasional Additional Past Alcohol Use History / Comment(s): Patient is a smoker of a 12: 45 half pack per day for 15 years. He also uses marijuana. He drinks alcohol occasionally. He denies any other street drug use. He states he is going through a divorce. He is currently homeless and living at a [facility]. Past Drug Use History: None Reported - Past Family History Father Additional Family Medical History / Comment(s): Father is alive at age 59 with history of hypertension. Mother Additional Family Medical History / Comment(s): Mother is alive at age 61 with history of coronary artery disease status post CABG, CVA. Brother(s) Additional Family Medical History / Comment(s): Patient has 2 brothers and one has problems with kidney stones. Patient has 1 sister with no major medical problems. Patient has 1 daughter that is having problems with her heart. Medications and Allergies Home Medications Medication Instructions Recorded Confirmed Type carBAMazepine [Carbamazepine] 200 mg PO BID 06/19/16 06/20/16 History clonazePAM [KlonoPIN] 2 mg PO TID PRN 06/19/16 06/20/16 History Allergies Allergy/AdvReac Type Severity Reaction Status Date / Time No Known Allergies Allergy Verified 06/20/16 21:01 Physical Exam Vitals: Vital Signs Temp Pulse Resp BP Pulse Ox 06/21/16 06:50 97.9 F 88 16 114/74 06/20/16 19:30 97.6 F 72 18 126/82 98 Intake and Output 06/20/16 06/21/16 06/21/16 22:59 06:59 14:59 Other: Weight 115.1 kg Gen: This is a 31-year-old -Kitt[place] male. He is cooperative and appears to be in no acute distress. HEENT: Head is atraumatic, normocephalic. Pupils equal, round. Sclerae is anicteric. NECK: Supple. No JVD. No lymphadenopathy. No thyromegaly. LUNGS: Clear to auscultation. No wheezes or rhonchi. No intercostal retractions. HEART: Regular rate and rhythm. No murmur. ABDOMEN: Soft. Bowel sounds are present. No masses. No tenderness. EXTREMITIES: No pedal edema. No calf tenderness. NEUROLOGICAL: Patient is awake, alert and oriented x3. Cranial nerves 2 through 12 are grossly intact. Results CBC & Chem 7: 06/21/16 09:25 06/21/16 09:25 Assessment and Plan Plan: 1. Depression with suicidal thoughts. Patient admitted to the mental health unit. Continue current plan of care. 2. Tobacco use and dependence. Continue nicotine patch. 3. Marijuana use. Continue as in #1. 4. Chronic low back pain, stable. Continue Tylenol as needed. 5. History of cataract removal and intraocular lens implants. Patient was advised to follow-up with robot designer on a yearly basis. Impression and plan of care have been directed as dictated by the signing physician. Moraima Jacob nurse practitioner acting as scribe for signing physician. Time with Patient: Greater than 30
[2016-06-22] MEDS: traZODone HCL 100 MG TAB PO PRN ×2 (02:56→20:03)
[2016-06-22] MEDS: busPIRone HCl 10 MG TAB PO SCH ×2 (08:26→20:03)
[2016-06-22] MEDS: NICOTINE 21MG/24HR PATCH TRANSDERM SCH (08:26)
[2016-06-22] MEDS: ACETAMINOPHEN TAB 325 MG TAB PO PRN ×2 (08:51→14:39)
--- NOTE | 2016-06-22 09:32 | P.PN ---
Progress Note - Text Interval history: The patient is found in his room he follows me to an interview room. He reports his mood is fine. He did not get to sleep until later in the morning but eventually did take the trazodone and he reports it helped. He was compliant with the BuSpar we are going to give that time to demonstrate efficacy. He is instructed to minimize use of Ativan. He has attended groups he has demonstrated no agitated behavior. He reports having a good visit with his mother last evening and he has a room he will rent upon discharge. Mental status exam: The patient is a male appearing his stated age he is dressed appropriately in his own clothing eye contact is appropriate. He is pleasant and cooperative. He readily engages in conversation. He reports his mood is fine. He denies having any hopelessness thinking and denies having any suicidal or homicidal ideation intent or plan. He states the crisis is over he has no thoughts of harming his mother or father. He is endorsing no auditory or visual hallucinations he is endorsing no specific delusions. There is no evidence of hypomania or kaylie. He does not appear psychotic. Thought process is linear he is mildly circumstantial at times but easily directed area he demonstrates no verbal or physical aggressiveness. He remains oriented to person place and date. Affect is appropriately expressive. Plan: The patient will continue on the BuSpar as written and trazodone as needed. We will consider discharging him tomorrow if he demonstrates continued clinical stability. We will monitor him for safety he is encouraged to participate in milieu. Labs reviewed creatinine mildly elevated he is encouraged to increase hydration with water. Vital signs reviewed.
[2016-06-22] MEDS: LORazepam 1 MG TAB PO PRN ×2 (11:23→18:38)
[2016-06-23 06:40] VITALS: BP 118/55; PULSE 64; RESP 18; TEMP 97.7
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
[2016-06-23] MEDS: NICOTINE 21MG/24HR PATCH TRANSDERM SCH (08:41)
[2016-06-23] MEDS: busPIRone HCl 10 MG TAB PO SCH (08:41)
== END 2016-06-23 11:54 | disposition home or self-care (01) | DRG 885 ==
LOC: EC 15:33 → 3MHU 18:27
PROVIDERS: ADMIT Psychiatry & Neurology Psychiatry; ATTEND Psychiatry & Neurology Psychiatry
DX: F31.9 Bipolar disorder, unspecified (principal); R45.850 Homicidal ideations; R45.851 Suicidal ideations; F60.2 Antisocial personality disorder; F12.90 Cannabis use, unspecified, uncomplicated; Z91.410 Personal history of adult physical and sexual abuse; Z91.5 Personal history of self-harm; Z98.42 Cataract extraction status, left eye; Z98.41 Cataract extraction status, right eye; Z96.1 Presence of intraocular lens; F17.200 Nicotine dependence, unspecified, uncomplicated; F79 Unspecified intellectual disabilities; F81.9 Developmental disorder of scholastic skills, unspecified; F41.9 Anxiety disorder, unspecified
CPT/HCPCS: 80053; 80306; 82075; 84443; 85025

== ENCOUNTER 2016-07-17 08:11 | Emergency (ER) | payer OTHER ==
[2016-07-17 08:22] VITALS: BP 120/70; PULSE 75; RESP 18; TEMP 98.6
[2016-07-17] MEDS ORDERED: PENICILLIN VK 500MG STARTER 4 TAB BTL PO STA (08:48)
[2016-07-17] MEDS ORDERED: ACET/COD 300 MG/30 MG STARTER PACK 6 TAB BTL PO STA (08:48)
--- NOTE | 2016-07-17 08:52 | ED ---
General Adult HPI - General Chief complaint: Dental/Oral Stated complaint: tooth pain Time Seen by Provider: 07/17/16 08:35 Source: patient, RN notes reviewed Mode of arrival: ambulatory Limitations: no limitations - History of Present Illness Initial comments: Patient 31-year-old male who presents emergency room today with a chief complaint of increased dental pain. He does admit that he was eating chicken a week ago and he cracked a tooth #15. He states had some pain meds been increasing over the last few days. Patient denies any other complaints or symptoms. Denies any drainage or discharge. Patient denies any recent fever, chills, shortness of breath, chest pain, back pain, abdominal pain, nausea or vomiting, numbness or tingling, dysuria or hematuria, constipation or diarrhea, headaches or visual changes, or any other complaints. - Related Data Home Medications Medication Instructions Recorded Confirmed ARIPiprazole [Abilify Maintena] 300 mg IM QMONTH 07/17/16 07/17/16 Previous Rx's Medication Instructions Recorded Acetaminophen-Codeine 300-30mg 1 each PO Q6H PRN #10 tablet 07/17/16 [Tylenol #3] Ibuprofen [Motrin] 800 mg PO Q8HR #30 tab 07/17/16 Penicillin V Potassium [Pen Vee K] 500 mg PO QID 10 Days 07/17/16 Allergies Allergy/AdvReac Type Severity Reaction Status Date / Time No Known Allergies Allergy Verified 07/17/16 08:22 Review of Systems ROS Statement: Those systems with pertinent positive or pertinent negative responses have been documented in the HPI. ROS Other: All systems not noted in ROS Statement are negative. Past Medical History Past Medical History: No Reported History History of Any Multi-Drug Resistant Organisms: None Reported Past Surgical History: Orthopedic Surgery Additional Past Surgical History / Comment(s): ORIF left arm, nasal surgery due to fracture, left jaw, bilateral cataract removal and intraocular lens implants. Past Anesthesia/Blood Transfusion Reactions: No Reported Reaction Past Psychological History: Bipolar, Depression Smoking Status: Current every day smoker Past Alcohol Use History: Occasional Additional Past Alcohol Use History / Comment(s): Patient is a smoker of a 12: 45 half pack per day for 15 years. He also uses marijuana. He drinks alcohol occasionally. He denies any other street drug use. He states he is going through a divorce. He is currently homeless and living at a [facility]. Past Drug Use History: None Reported - Past Family History Father Additional Family Medical History / Comment(s): Father is alive at age 59 with history of hypertension. Mother Additional Family Medical History / Comment(s): Mother is alive at age 61 with history of coronary artery disease status post CABG, CVA. Brother(s) Additional Family Medical History / Comment(s): Patient has 2 brothers and one has problems with kidney stones. Patient has 1 sister with no major medical problems. Patient has 1 daughter that is having problems with her heart. General Exam - General Exam Comments Initial Comments: General: The patient is awake and alert, in no distress, and does not appear acutely ill. Eye: Pupils are equal, round and reactive to light, extra-ocular movements are intact. No nystagmus. There is normal conjunctiva bilaterally. No signs of icterus. Ears, nose, mouth and throat: There are moist mucous membranes and no oral lesions. No obvious fracture appreciated of the tooth #15. He does have some tenderness locally to this area and the gumline. There is no calf or appears to be a canker sore locally To this in the roof of his mouth. Neck: The neck is supple, there is no tenderness or JVD. Cardiovascular: There is a regular rate and rhythm. No murmur, rub or gallop is appreciated. Respiratory: Lungs are clear to auscultation, respirations are non-labored, breath sounds are equal. No wheezes, stridor, rales, or rhonchi. Musculoskeletal: Normal ROM, no tenderness. Strength 5/5. Sensation intact. Pulses equal bilaterally 2+. Neurological: A&O x 3. CN II-XII intact, There are no obvious motor or sensory deficits. Coordination appears grossly intact. Speech is normal. Skin: Skin is warm and dry and no rashes or lesions are noted. Psychiatric: Cooperative, appropriate mood & affect, normal judgment. Limitations: no limitations Course Vital Signs 07/17/16 08:20 Temperature 98.6 F Pulse Rate 75 Respiratory 18 Rate Blood Pressure 120/70 O2 Sat by Pulse 100 Oximetry Medical Decision Making - Medical Decision Making Patient will be given a short prescription of pain medication advised follow-up the dentist over the next 2 days. Also given prescription for Magic mouthwash. Disposition Clinical Impression: Pain, dental Disposition: HOME SELF-CARE Condition: Good Instructions: Toothache (ED) Additional Instructions: Please use medication as discussed. Please follow-up with family doctor/ dentist in the next 2 days. Please return to emergency room if the symptoms increase or worsen or for any other concerns. Prescriptions: Acetaminophen-Codeine 300-30mg [Tylenol #3] 1 each PO Q6H PRN #10 tablet PRN Reason: Pain Ibuprofen [Motrin] 800 mg PO Q8HR #30 tab Penicillin V Potassium [Pen Vee K] 500 mg PO QID 10 Days Referrals: Kady Restrepo MD [Primary Care Provider] - 1-2 days Time of Disposition: 08:50
== END 2016-07-17 09:03 | disposition home or self-care (01) ==
LOC: EC 08:11
DX: K08.89 Other specified disorders of teeth and supporting structures (principal); F17.200 Nicotine dependence, unspecified, uncomplicated; Z79.899 Other long term (current) drug therapy
CPT/HCPCS: 99282

== ENCOUNTER 2016-08-02 05:06 | Emergency (ER) | payer OTHER ==
--- NOTE | 2016-08-02 07:14 | ED ---
Psych HPI - General Source: patient Mode of arrival: ambulatory - History of Present Illness MD Complaint: feels depressed -: days(s) Associated Psychiatric Symptoms: depression Quality: constant Improves With: none Worsens With: none Context: significant life stressor Treatments Prior to Arrival: none <Arturo Stubbs - Last Filed: 08/02/16 07:11> <Goyo Swan - Last Filed: 08/02/16 09:23> - General Chief Complaint: Psychiatric Symptoms Stated Complaint: Mental Health Time Seen by Provider: 08/02/16 05:27 - History of Present Illness Initial Comments: This patient is a 31-year-old man who is feeling anxious and depressed. He has had a few passive thoughts of suicide. He states that this is been going on for a number of weeks to months, and seems to be made worse by the divorce that he is going through. The patient wanted to come in for help tonight. He denies auditory or visual hallucinations. Denies any homicidal ideation. He is taking his psychiatric medicines as prescribed. (Arturo Stubbs) - Related Data Home Medications Medication Instructions Recorded Confirmed ARIPiprazole [Abilify Maintena] 300 mg IM QMONTH 07/17/16 08/02/16 Allergies Allergy/AdvReac Type Severity Reaction Status Date / Time No Known Allergies Allergy Verified 08/02/16 07:56 Review of Systems ROS Other: All systems not noted in ROS Statement are negative. Constitutional: Denies: fever, chills Eyes: Denies: vision change Respiratory: Denies: cough, dyspnea Cardiovascular: Denies: chest pain Gastrointestinal: Denies: abdominal pain, vomiting, diarrhea Musculoskeletal: Denies: back pain Neurological: Denies: headache, weakness, numbness <Arturo Stubbs - Last Filed: 08/02/16 07:11> ROS Other: All systems not noted in ROS Statement are negative. <Goyo Swan - Last Filed: 08/02/16 09:23> ROS Statement: Those systems with pertinent positive or pertinent negative responses have been documented in the HPI. Past Medical History Past Medical History: No Reported History History of Any Multi-Drug Resistant Organisms: None Reported Past Surgical History: Orthopedic Surgery Additional Past Surgical History / Comment(s): ORIF left arm, nasal surgery due to fracture, left jaw, bilateral cataract removal and intraocular lens implants. Past Anesthesia/Blood Transfusion Reactions: No Reported Reaction Past Psychological History: Anxiety, Bipolar, Depression Smoking Status: Current every day smoker Past Alcohol Use History: Occasional Additional Past Alcohol Use History / Comment(s): Patient is a smoker of a 12: 45 half pack per day for 15 years. He also uses marijuana. He drinks alcohol occasionally. He denies any other street drug use. He states he is going through a divorce. He is currently homeless and living at a [facility]. Past Drug Use History: None Reported - Past Family History Father Additional Family Medical History / Comment(s): Father is alive at age 59 with history of hypertension. Mother Additional Family Medical History / Comment(s): Mother is alive at age 61 with history of coronary artery disease status post CABG, CVA. Brother(s) Additional Family Medical History / Comment(s): Patient has 2 brothers and one has problems with kidney stones. Patient has 1 sister with no major medical problems. Patient has 1 daughter that is having problems with her heart. <Arturo Stubbs - Last Filed: 08/02/16 07:11> General Exam Limitations: no limitations General appearance: alert, in no apparent distress Head exam: Present: atraumatic, normocephalic Respiratory exam: Present: normal lung sounds bilaterally. Absent: respiratory distress, wheezes, rales, rhonchi, stridor Cardiovascular Exam: Present: regular rate, normal rhythm, normal heart sounds. Absent: systolic murmur, diastolic murmur, rubs, gallop GI/Abdominal exam: Present: soft. Absent: distended, tenderness, guarding, rebound, mass Neurological exam: Present: alert, oriented X3 Skin exam: Present: warm, dry, intact, normal color. Absent: rash <Arturo Stubbs - Last Filed: 08/02/16 07:11> Medical Decision Making <Arturo Stubbs - Last Filed: 08/02/16 07:11> <Goyo Swan - Last Filed: 08/02/16 09:23> - Medical Decision Making The patient was evaluated by psychiatric service he currently is on her wrist whatsoever anyone else he is not suicidal at this time he'll be discharged with outpatient care (Goyo Swan) Disposition <Arturo Stubbs - Last Filed: 08/02/16 07:11> <Goyo Swan - Last Filed: 08/02/16 09:23> Clinical Impression: Bipolar disorder Disposition: HOME SELF-CARE Condition: Good Instructions: Bipolar Disorder (ED) Referrals: Kady Restrepo MD [Primary Care Provider] - 1-2 days
[2016-08-02 07:20] VITALS: RESP 16
[2016-08-02 09:38] VITALS: BP 125/76; PULSE 90; TEMP 98.7
== END 2016-08-02 09:37 | disposition home or self-care (01) ==
LOC: EC 05:06
DX: F31.9 Bipolar disorder, unspecified (principal); F41.9 Anxiety disorder, unspecified; F17.200 Nicotine dependence, unspecified, uncomplicated; Z79.899 Other long term (current) drug therapy
CPT/HCPCS: 82075; 99284

== ENCOUNTER 2016-08-04 17:13 | Emergency (ER) | payer OTHER ==
--- NOTE | 2016-08-04 18:03 | ED ---
General Adult HPI - General Chief complaint: Psychiatric Symptoms Stated complaint: mental health Time Seen by Provider: 08/04/16 17:41 Source: patient, RN notes reviewed Mode of arrival: ambulatory Limitations: no limitations - History of Present Illness Initial comments: Patient's 31-year-old male who presents emergency room today with a chief complaint of suicidal ideation. He states having thoughts of cutting his wrists. He states he has had thoughts of suicide in the past and did try to overdose on Valium approximate 7-8 years ago. Patient states currently seeing a counselor who saw him in his home today did not feel safe there brought him here to the emergency room for further evaluation. Patient denies any other complaints or symptoms at this time. Patient denies any recent fever, chills, shortness of breath, chest pain, back pain, abdominal pain, nausea or vomiting, numbness or tingling, dysuria or hematuria, constipation or diarrhea, headaches or visual changes, or any other complaints. - Related Data Home Medications Medication Instructions Recorded Confirmed ARIPiprazole [Abilify Maintena] 400 mg IM QMONTH 08/04/16 08/04/16 carBAMazepine [TEGretol] 200 mg PO BID 08/04/16 08/04/16 diphenhydrAMINE [Benadryl] 50 mg PO HS 08/04/16 08/04/16 Allergies Allergy/AdvReac Type Severity Reaction Status Date / Time No Known Allergies Allergy Verified 08/04/16 19:26 Review of Systems ROS Statement: Those systems with pertinent positive or pertinent negative responses have been documented in the HPI. ROS Other: All systems not noted in ROS Statement are negative. Past Medical History Past Medical History: No Reported History Additional Past Medical History / Comment(s): "emotionally impaired" History of Any Multi-Drug Resistant Organisms: None Reported Past Surgical History: Orthopedic Surgery Additional Past Surgical History / Comment(s): ORIF left arm, nasal surgery due to fracture, left jaw, bilateral cataract removal and intraocular lens implants. Past Anesthesia/Blood Transfusion Reactions: No Reported Reaction Past Psychological History: ADD/ADHD, Anxiety, Bipolar, Depression Smoking Status: Current every day smoker Past Alcohol Use History: Occasional Past Drug Use History: None Reported - Past Family History Father Additional Family Medical History / Comment(s): Father is alive at age 59 with history of hypertension. Mother Additional Family Medical History / Comment(s): Mother is alive at age 61 with history of coronary artery disease status post CABG, CVA. Brother(s) Additional Family Medical History / Comment(s): Patient has 2 brothers and one has problems with kidney stones. Patient has 1 sister with no major medical problems. Patient has 1 daughter that is having problems with her heart. General Exam - General Exam Comments Initial Comments: General: The patient is awake and alert, in no distress, and does not appear acutely ill. Eye: Pupils are equal, round and reactive to light, extra-ocular movements are intact. No nystagmus. There is normal conjunctiva bilaterally. No signs of icterus. Ears, nose, mouth and throat: There are moist mucous membranes and no oral lesions. Neck: The neck is supple, there is no tenderness or JVD. Cardiovascular: There is a regular rate and rhythm. No murmur, rub or gallop is appreciated. Respiratory: Lungs are clear to auscultation, respirations are non-labored, breath sounds are equal. No wheezes, stridor, rales, or rhonchi Musculoskeletal: Normal ROM, no tenderness. Strength 5/5. Sensation intact. Pulses equal bilaterally 2+. Neurological: A&O x 3. CN II-XII intact, There are no obvious motor or sensory deficits. Coordination appears grossly intact. Speech is normal. Skin: Skin is warm and dry and no rashes or lesions are noted. Psychiatric: Cooperative, appropriate mood & affect, normal judgment. Limitations: no limitations Course Vital Signs 08/04/16 08/04/16 17:34 18:31 Temperature 97.8 F 98.2 F Pulse Rate 74 69 Respiratory 18 16 Rate Blood Pressure 119/75 94/50 O2 Sat by Pulse 99 100 Oximetry Medical Decision Making - Medical Decision Making Patient has been seen here in the emergency room by [facility]. Both EPS and ACT team have evaluated patient here in the emergency room and their recommendation the patient can be discharged and follow up outpatient. - Lab Data Lab Results 08/04/16 Range/Units 18:05 Urine Opiates Screen Not Detected (NotDetected) Ur Oxycodone Screen Not Detected (NotDetected) Urine Methadone Screen Not Detected (NotDetected) Ur Propoxyphene Screen Not Detected (NotDetected) Ur Barbiturates Screen Not Detected (NotDetected) U Tricyclic Antidepress Not Detected (NotDetected) Ur Phencyclidine Scrn Not Detected (NotDetected) Ur Amphetamines Screen Not Detected (NotDetected) U Methamphetamines Scrn Not Detected (NotDetected) U Benzodiazepines Scrn Detected H (NotDetected) Urine Cocaine Screen Not Detected (NotDetected) U Marijuana (THC) Screen Detected H (NotDetected) Disposition Clinical Impression: Depression Disposition: HOME SELF-CARE Condition: Good Instructions: Depression (ED) Additional Instructions: Please follow-up with mental health as discussed. Please return here to the emergency room if any symptoms increase or worsen or for any other concerns. Referrals: Kady Restrepo MD [Primary Care Provider] - 1-2 days Time of Disposition: 19:48
[2016-08-04 20:17] VITALS: BP 130/66; PULSE 67; RESP 18; TEMP 97.1
== END 2016-08-04 20:17 | disposition home or self-care (01) ==
LOC: EC 17:13
DX: F32.9 Major depressive disorder, single episode, unspecified (principal); R45.851 Suicidal ideations; F41.9 Anxiety disorder, unspecified; F90.9 Attention-deficit hyperactivity disorder, unspecified type; F17.200 Nicotine dependence, unspecified, uncomplicated; Z79.899 Other long term (current) drug therapy
CPT/HCPCS: 80306; 82075; 99284

== ENCOUNTER 2016-08-07 09:20 | Emergency (ER) | payer OTHER ==
--- NOTE | 2016-08-07 09:23 | ED ---
General Adult HPI - General Stated complaint: Mental Health Time Seen by Provider: 08/07/16 09:22 Source: RN notes reviewed, old records reviewed - History of Present Illness Initial comments: This is a 29-year-old psychiatric evaluation. Patient being evaluated for psychiatric evaluation. Patient not answering questions, not participating interview, also recent hospital admissions or ER visits for similar issue - Related Data Home Medications Medication Instructions Recorded Confirmed ARIPiprazole [Abilify Maintena] 400 mg IM QMONTH 08/04/16 08/07/16 Allergies Allergy/AdvReac Type Severity Reaction Status Date / Time No Known Allergies Allergy Verified 08/07/16 09:47 Review of Systems ROS Statement: Those systems with pertinent positive or pertinent negative responses have been documented in the HPI. ROS Other: All systems not noted in ROS Statement are negative. Past Medical History Past Medical History: No Reported History Additional Past Medical History / Comment(s): "emotionally impaired" History of Any Multi-Drug Resistant Organisms: None Reported Past Surgical History: Orthopedic Surgery Additional Past Surgical History / Comment(s): ORIF left arm, nasal surgery due to fracture, left jaw, bilateral cataract removal and intraocular lens implants. Past Anesthesia/Blood Transfusion Reactions: No Reported Reaction Past Psychological History: ADD/ADHD, Anxiety, Bipolar, Depression Smoking Status: Current every day smoker Past Alcohol Use History: Occasional Past Drug Use History: None Reported - Past Family History Father Additional Family Medical History / Comment(s): Father is alive at age 59 with history of hypertension. Mother Additional Family Medical History / Comment(s): Mother is alive at age 61 with history of coronary artery disease status post CABG, CVA. Brother(s) Additional Family Medical History / Comment(s): Patient has 2 brothers and one has problems with kidney stones. Patient has 1 sister with no major medical problems. Patient has 1 daughter that is having problems with her heart. General Exam General appearance: alert, in no apparent distress Head exam: Present: atraumatic, normocephalic, normal inspection Eye exam: Present: normal appearance, PERRL, EOMI. Absent: scleral icterus, conjunctival injection, periorbital swelling ENT exam: Present: normal exam, mucous membranes moist Neck exam: Present: normal inspection. Absent: tenderness, meningismus, lymphadenopathy Respiratory exam: Present: normal lung sounds bilaterally. Absent: respiratory distress, wheezes, rales, rhonchi, stridor Cardiovascular Exam: Present: regular rate, normal rhythm, normal heart sounds. Absent: systolic murmur, diastolic murmur, rubs, gallop, clicks GI/Abdominal exam: Present: soft, normal bowel sounds. Absent: distended, tenderness, guarding, rebound, rigid Extremities exam: Present: normal inspection, full ROM, normal capillary refill. Absent: tenderness, pedal edema, joint swelling, calf tenderness Back exam: Present: normal inspection Neurological exam: Present: alert, oriented X3, CN II-XII intact Psychiatric exam: Present: normal affect, normal mood Skin exam: Present: warm, dry, intact, normal color. Absent: rash Course Vital Signs 08/07/16 09:22 Temperature 98.1 F Pulse Rate 80 Respiratory 18 Rate Blood Pressure 135/76 O2 Sat by Pulse 100 Oximetry - Reevaluation(s) Reevaluation #1: 08/07/16 09:34 Medically clear for psychiatric evaluation Medical Decision Making - Medical Decision Making 31 male seen and evaluated with psychiatry, patient stable for discharge all - Lab Data Lab Results 08/07/16 Range/Units 10:05 Urine Opiates Screen Detected H (NotDetected) Ur Oxycodone Screen Not Detected (NotDetected) Urine Methadone Screen Not Detected (NotDetected) Ur Propoxyphene Screen Not Detected (NotDetected) Ur Barbiturates Screen Not Detected (NotDetected) U Tricyclic Antidepress Not Detected (NotDetected) Ur Phencyclidine Scrn Not Detected (NotDetected) Ur Amphetamines Screen Not Detected (NotDetected) U Methamphetamines Scrn Not Detected (NotDetected) U Benzodiazepines Scrn Detected H (NotDetected) Urine Cocaine Screen Not Detected (NotDetected) U Marijuana (THC) Screen Detected H (NotDetected) Disposition Clinical Impression: Acute anxiety, Bipolar 1 disorder Disposition: HOME SELF-CARE Condition: Good Instructions: Bipolar Disorder (ED) Referrals: Nonstaff,Physician [REFERRING] - 1-2 days
[2016-08-07 09:25] VITALS: PULSE 80
[2016-08-07 11:14] VITALS: BP 137/83; RESP 15; TEMP 98.9
== END 2016-08-07 11:32 | disposition home or self-care (01) ==
LOC: EC 09:20
DX: F31.9 Bipolar disorder, unspecified (principal); F41.9 Anxiety disorder, unspecified; F17.200 Nicotine dependence, unspecified, uncomplicated; Z79.899 Other long term (current) drug therapy
CPT/HCPCS: 80306; 82075; 99284

== ENCOUNTER 2016-10-12 08:55 | Emergency (ER) | payer OTHER ==
[2016-10-12] MEDS ORDERED: DIAZEPAM 5 MG/ML 2 ML SYRINGE IM ONE (10:03)
[2016-10-12] MEDS ORDERED: KETOROLAC 30 MG/ML 1 ML VIAL IM STA (10:03)
--- NOTE | 2016-10-12 10:04 | ED ---
Back Pain HPI - General Chief Complaint: Back Pain/Injury Stated Complaint: muscle spasms, left back and arm Source: patient Limitations: no limitations - History of Present Illness Initial Comments: Patient is a 31-year-old male who presents for evaluation for mid back pain that started yesterday. Past medical history as below. Patient works at [employer]. Yesterday he was moving 4 x 4's. When he got home from work started having severe muscle spasms and mid back pain. He has a history of this in the past second due to the nature of his work. He states that the pain is usually managed by ibuprofen 800 mg but does not seem to be helping with the pain today. This prompted him coming in for evaluation. He is able to ambulate. No weakness or synesthesia's the lower extremities. He denies any fevers. No IV drug use. No urinary retention or incontinence. No stool incontinence. No numbness to the groin area. Also denies headaches, URI symptoms, shortness breath, cough, chest pain, nausea, vomiting, diarrhea, pain or burning with urination. - Related Data Home Medications Medication Instructions Recorded Confirmed ARIPiprazole [Abilify Maintena] 400 mg IM QMONTH 08/04/16 10/12/16 Previous Rx's Medication Instructions Recorded Methocarbamol [Robaxin] 750 mg PO TID PRN #15 tab 10/12/16 Naproxen 500 mg PO BID #10 tablet 10/12/16 Allergies Allergy/AdvReac Type Severity Reaction Status Date / Time No Known Allergies Allergy Verified 10/12/16 09:14 Review of Systems ROS Statement: Those systems with pertinent positive or pertinent negative responses have been documented in the HPI. ROS Other: All systems not noted in ROS Statement are negative. Past Medical History Past Medical History: No Reported History Additional Past Medical History / Comment(s): "emotionally impaired" chronic back pain History of Any Multi-Drug Resistant Organisms: None Reported Past Surgical History: Orthopedic Surgery Additional Past Surgical History / Comment(s): ORIF left arm, nasal surgery due to fracture, left jaw, bilateral cataract removal and intraocular lens implants. Past Anesthesia/Blood Transfusion Reactions: No Reported Reaction Past Psychological History: ADD/ADHD, Anxiety, Bipolar, Depression Smoking Status: Current every day smoker Past Alcohol Use History: Occasional Past Drug Use History: None Reported - Past Family History Father Additional Family Medical History / Comment(s): Father is alive at age 59 with history of hypertension. Mother Additional Family Medical History / Comment(s): Mother is alive at age 61 with history of coronary artery disease status post CABG, CVA. Brother(s) Additional Family Medical History / Comment(s): Patient has 2 brothers and one has problems with kidney stones. Patient has 1 sister with no major medical problems. Patient has 1 daughter that is having problems with her heart. General Exam Limitations: no limitations General appearance: alert, in no apparent distress, other (Nontoxic appearing) Head exam: Present: atraumatic, normocephalic, normal inspection Eye exam: Present: normal appearance, PERRL, EOMI. Absent: scleral icterus, conjunctival injection, periorbital swelling ENT exam: Present: normal exam, mucous membranes moist Neck exam: Present: normal inspection. Absent: tenderness, meningismus, lymphadenopathy Respiratory exam: Present: normal lung sounds bilaterally. Absent: respiratory distress, wheezes, rales, rhonchi, stridor Cardiovascular Exam: Present: regular rate, normal rhythm, normal heart sounds. Absent: systolic murmur, diastolic murmur, rubs, gallop, clicks GI/Abdominal exam: Present: soft, normal bowel sounds. Absent: distended, tenderness, guarding, rebound, rigid Extremities exam: Present: normal inspection, full ROM, normal capillary refill. Absent: tenderness, pedal edema, joint swelling, calf tenderness Back exam: Present: normal inspection, other (Patient was able to sit upright in bed at introduction. No midline CT or L-spine tenderness. He has tenderness from T12 to L2 left paraspinal area.) Neurological exam: Present: alert, oriented X3, CN II-XII intact, other ( Sensation intact in the upper and lower charities. 5 out of 5 strength of the upper and lower extremities. L4 and S1 reflexes intact bilaterally. Gait intact.) Psychiatric exam: Present: normal affect, normal mood Skin exam: Present: warm, dry, intact, normal color. Absent: rash Course Vital Signs 10/12/16 09:05 Temperature 97.6 F Pulse Rate 72 Respiratory 15 Rate Blood Pressure 111/65 O2 Sat by Pulse 96 Oximetry Medical Decision Making - Medical Decision Making 1000: Patient is a pleasant 31-year-old male presents for evaluation for mid thoracolumbar/left paraspinal back pain in between T12 to L2. Known history of this. No signs or symptoms concerning for cauda equina syndrome. We'll treat with 30 mg IM Toradol and 5 mg IM Valium and reevaluate. 1040: Patient reports moderate relief with the above interventions. Encourage close follow-up with primary care physician and possible need for physical therapy. Also encouraged him to wear low back support and discussed safe lifting strategies for work. Discussed concerning signs for back pain. We'll discharge home with naproxen and Robaxin. Discussed how to take these medications. No other NSAIDs. Provided work note. Discussed further signs and symptoms on when to return to the emergency department for further evaluation. Voiced understanding and will follow-up with primary care physician Provided. Disposition Clinical Impression: Back pain Disposition: HOME SELF-CARE Condition: Good Instructions: Acute Low Back Pain (ED) Prescriptions: Methocarbamol [Robaxin] 750 mg PO TID PRN #15 tab PRN Reason: Pain Naproxen 500 mg PO BID #10 tablet Referrals: None,Stated [Primary Care Provider] - 1-2 days Jenni Hess MD [STAFF PHYSICIAN] - 1-2 days
[2016-10-12 11:14] VITALS: BP 138/59; PULSE 86; RESP 16; TEMP 98
== END 2016-10-12 11:14 | disposition home or self-care (01) ==
LOC: EC 08:55
DX: M54.9 Dorsalgia, unspecified (principal); F31.9 Bipolar disorder, unspecified; F90.9 Attention-deficit hyperactivity disorder, unspecified type; F41.9 Anxiety disorder, unspecified; F17.200 Nicotine dependence, unspecified, uncomplicated; Z79.899 Other long term (current) drug therapy
CPT/HCPCS: 99283; 96372 ×2; J3360; J1885

== ENCOUNTER 2016-10-16 13:33 | Inpatient (IN) | payer MEDICAID, OTHER ==
--- NOTE | 2016-10-16 14:00 | ED ---
Psych HPI - General Chief Complaint: Psychiatric Symptoms Stated Complaint: EPS eval Time Seen by Provider: 10/16/16 13:53 Source: patient Mode of arrival: ambulatory - History of Present Illness Initial Comments: This 31-year-old -[place] male presents with a complaint of depression with suicidal thoughts present for the last 2 days. He states that he's had intermittent depression and psychiatric problems over time but they have fulminate it. He relates multiple family stressors. He does have a plan of drinking bleach to kill himself. He denies any recent medication changes. He has no medical complaints currently. He apparently was seen at the psychiatric facility earlier today and they sent him to the ER for further evaluation. No other complaints or modifying factors. - Related Data Home Medications Medication Instructions Recorded Confirmed ARIPiprazole [Abilify Maintena] 400 mg IM QMONTH 08/04/16 10/16/16 Naproxen 500 mg PO BID PRN 10/16/16 10/16/16 Previous Rx's Medication Instructions Recorded Methocarbamol [Robaxin] 750 mg PO TID PRN #15 tab 10/12/16 Allergies Allergy/AdvReac Type Severity Reaction Status Date / Time No Known Allergies Allergy Verified 10/16/16 14:03 Review of Systems ROS Statement: Those systems with pertinent positive or pertinent negative responses have been documented in the HPI. ROS Other: All systems not noted in ROS Statement are negative. Past Medical History Past Medical History: No Reported History Additional Past Medical History / Comment(s): "emotionally impaired" chronic back pain History of Any Multi-Drug Resistant Organisms: None Reported Past Surgical History: Orthopedic Surgery Additional Past Surgical History / Comment(s): ORIF left arm, nasal surgery due to fracture, left jaw, bilateral cataract removal and intraocular lens implants. Past Anesthesia/Blood Transfusion Reactions: No Reported Reaction Past Psychological History: ADD/ADHD, Anxiety, Bipolar, Depression Smoking Status: Current every day smoker Past Alcohol Use History: Occasional Past Drug Use History: None Reported - Past Family History Father Additional Family Medical History / Comment(s): Father is alive at age 59 with history of hypertension. Mother Additional Family Medical History / Comment(s): Mother is alive at age 61 with history of coronary artery disease status post CABG, CVA. Brother(s) Additional Family Medical History / Comment(s): Patient has 2 brothers and one has problems with kidney stones. Patient has 1 sister with no major medical problems. Patient has 1 daughter that is having problems with her heart. General Exam - General Exam Comments Initial Comments: GENERAL: The patient is well nourished and well hydrated. VITAL SIGNS: Heart rate, blood pressure, respiratory rate reviewed as recorded in nurse's notes. EYES: Pupils are round and reactive. Extraocular movements are intact. No conjunctival / lid redness or swelling. ENT: No external evidence of injury, swelling, or ecchymosis. Airway is patent. Throat is clear. NECK: Nontender. No swelling or evidence of injury. No subcutaneous emphysema. Trachea is midline. No thyroid mass. HEART: Regular rate and rhythm. Good peripheral pulses. LUNGS/CHEST: Breath sounds clear and equal bilaterally. No rales, rhonchi, or wheezes. No ecchymosis, subcutaneous emphysema, or tenderness. ABDOMEN: Abdomen soft without tenderness. No palpable masses or organomegaly. No peritoneal signs. No abdominal wall swelling or ecchymosis. EXTREMITIES: No extremity tenderness. Normal muscle tone and function. No thoracolumbar tenderness. NEUROLOGIC: Sensation is grossly intact. Cranial nerve exam reveals face is symmetrical, tongue is midline, speech is clear. SKIN: No abrasions or ecchymosis is noted. No induration or masses noted. PSYCHIATRIC: Alert and oriented. Appropriate behavior and judgment. Somewhat flat affect. Limitations: no limitations Course Vital Signs 10/16/16 13:42 Temperature 98.3 F Pulse Rate 71 Respiratory 18 Rate Blood Pressure 119/74 O2 Sat by Pulse 98 Oximetry Medical Decision Making - Medical Decision Making The patient was seen and examined. All diagnostics were reviewed. It is felt as though he is medically cleared for further psychiatric evaluation. Psychiatry does evaluate the patient and would like to admit him to the hospital for further treatment. - Lab Data Lab Results 10/16/16 Range/Units 14:32 Urine Opiates Screen Not Detected (NotDetected) Ur Oxycodone Screen Not Detected (NotDetected) Urine Methadone Screen Not Detected (NotDetected) Ur Propoxyphene Screen Not Detected (NotDetected) Ur Barbiturates Screen Not Detected (NotDetected) U Tricyclic Antidepress Not Detected (NotDetected) Ur Phencyclidine Scrn Not Detected (NotDetected) Ur Amphetamines Screen Not Detected (NotDetected) U Methamphetamines Scrn Not Detected (NotDetected) U Benzodiazepines Scrn Detected H (NotDetected) Urine Cocaine Screen Not Detected (NotDetected) U Marijuana (THC) Screen Detected H (NotDetected) Disposition Clinical Impression: Suicidal ideation, Bipolar disorder, Depression Disposition: ADMITTED IP TO THIS HOSP Condition: Good Time of Disposition: 16:04 Decision Date: 10/16/16 Decision Time: 16:04
[2016-10-16] MEDS ORDERED: MAG HYDROX/AL HYDROX/SIMETH 30 ML CUP PO PRN (17:13)
[2016-10-16] MEDS ORDERED: ACETAMINOPHEN TAB 325 MG TAB PO PRN (17:13)
[2016-10-16] MEDS ORDERED: MAGNESIUM HYDROXIDE 2,400 MG/10 ML CUP PO PRN (17:13)
[2016-10-16] MEDS ORDERED: ZIPRASIDONE 20 MG VIAL IM PRN (17:26)
[2016-10-16] MEDS ORDERED: METHOCARBAMOL 750 MG TAB PO PRN (18:06)
[2016-10-16] MEDS ORDERED: NAPROXEN 250 MG TAB PO PRN (18:06)
[2016-10-16] MEDS: NICOTINE 14MG/24HR PATCH TRANSDERM SCH (18:13)
[2016-10-16] MEDS: LORazepam 1 MG TAB PO PRN ×2 (18:23→22:32)
--- NOTE | 2016-10-16 19:37 | P.MDCNMH ---
History of Present Illness H&P Date: 10/16/16 Chief Complaint: depression and suicidal ideation This 31-year-old male presents suicidal ideation and depression symptoms. Patient reports feeling down and hopeless for the past 2 days, he reports plans to drink bleach and he actually went ahead and purchase some bleach however he attempted in the setting and seek help. Patient reports long history of intermittent symptoms of depression. He relates that to social stressors. Otherwise he denies any medical history or medical complaints. We were asked to assist in the medical management of this patient Review of Systems Constitutional: Patient reports no fever, no chills, no night sweating, no significant weight changes Eyes: Patient reports no visual changes, no eye pain ENT: Patient reports no ear pain, no rhinorrhea, no sore throat Cardiovascular: Patient reports no chest pain, no exertional dyspnea, no peripheral leg edema, no orthopnea, no paroxysmal nocturnal dyspnea Respiratory:Patient reports no cough, no wheezing, no shortness of breath Gastrointestinal: Patient reports no diarrhea, no constipation, no nausea no vomiting, no abdominal pain Genitourinary: Patient reports no dysuria, no hematuria, no changes in urinary habits, no genital lesions Musculoskeletal: Patient reports no muscle pain, no joint pain Psychiatric: Patient reports depressed mood, and suicidal ideation Endocrine: Patient reports no heat intolerance, no cold intolerance, no excessive thirst, no polyuria Neurological: Patient reports no focal neurologic deficits, no weakness, no numbness, no tingling Hem/Lymphatic: Patient reports no bleeding tendency, no bruising, no swollen lymph glands Allergic/Immun: Patient reports no recent allergic reactions Skin: Patient reports no rashes, no pruritis, no ulcers Past Medical History Past Medical History: No Reported History Additional Past Medical History / Comment(s): "emotionally impaired" chronic back pain History of Any Multi-Drug Resistant Organisms: None Reported Past Surgical History: Orthopedic Surgery Additional Past Surgical History / Comment(s): ORIF left arm, nasal surgery due to fracture, left jaw, bilateral cataract removal and intraocular lens implants. Past Anesthesia/Blood Transfusion Reactions: No Reported Reaction Past Psychological History: ADD/ADHD, Anxiety, Bipolar, Depression Smoking Status: Current every day smoker Past Alcohol Use History: Occasional Additional Past Alcohol Use History / Comment(s): Smokes half a pack every day Past Drug Use History: None Reported - Past Family History Father Additional Family Medical History / Comment(s): Father is alive at age 59 with history of hypertension. Mother Additional Family Medical History / Comment(s): Mother is alive at age 61 with history of coronary artery disease status post CABG, CVA. Brother(s) Additional Family Medical History / Comment(s): Patient has 2 brothers and one has problems with kidney stones. Patient has 1 sister with no major medical problems. Patient has 1 daughter that is having problems with her heart. Medications and Allergies Home Medications and Allergies Comment(s): Reviewed Home Medications Medication Instructions Recorded Confirmed Type ARIPiprazole [Abilify Maintena] 400 mg IM QMONTH 08/04/16 10/16/16 History Naproxen 500 mg PO BID PRN 10/16/16 10/16/16 History Allergies Allergy/AdvReac Type Severity Reaction Status Date / Time No Known Allergies Allergy Verified 10/16/16 14:03 Physical Exam Vitals: Vital Signs Temp Pulse Pulse Resp BP BP Pulse Ox 10/16/16 16:30 98.0 F 66 16 132/79 10/16/16 13:42 98.3 F 71 18 119/74 98 Intake and Output 10/16/16 10/16/16 10/16/16 06:59 14:59 22:59 Other: Weight 111.13 kg Patient Weight 10/17/16 06:59 Weight 111.13 kg Constitutional: No acute distress, conversant, pleasant Eyes: Anicteric sclerae, moist conjunctiva, no lid-lag Pupils equal round reactive to light ENMT: NC/AT Oropharynx clear, no erythema, exudates Neck: Supple, FROM, no masses, or JVD No carotid bruits No thyromegaly Lungs: Clear to auscultation Clear to percussion Normal respiratory effort, no accessory muscle use Cardiovascular: Heart regular in rate and rhythm, No murmurs, gallops, or rubs No peripheral edema Abdominal: Soft Nontender, no guarding, rebound or rigidity Abdomen moving with respiration Normoactive bowel sounds No hepatomegaly, No splenomegaly No palpable mass No abdominal wall hernia noted Skin: Normal temperature, tone, texture, turgor No induration No subcutaneous nodules No rash, lesions No ulcers Extremities: No digital cyanosis No clubbing Pedal pulses intact and symmetrical Radial pulses intact and symmetrical No calf tenderness Psychiatric: Alert and oriented to person, place and time Depressed affect Poor judgement Neuro Muscles Strength 5/5 in all 4 extremities Sensation to light touch grossly present throughout Cranial nerves II-XII grossly intact No focal sensory deficits Lymphatics: no palpable cervical or supraclavicular , or inguinal lymph nodes Cranial Nerve Examination - Cranial Nerves Cranial Nerve II- Optic: Intact Cranial Nerve III- Oculomotor: Intact Cranial Nerve IV- Trochlear: Intact Cranial Nerve V- Trigeminal: Intact Cranial Nerve - Abducens: Intact Cranial Nerve VII- Facial: Intact Cranial Nerve VIII- Auditory: Intact Cranial Nerve IX- Glossopharyngeal: Intact Cranial Nerve X- Vagus: Intact Cranial Nerve XI- Accessory: Intact Cranial Nerve XII- Hypoglossal: Intact Results Labs: Abnormal Lab Results - Last 24 Hours (Table) 10/16/16 Range/Units 14:32 U Benzodiazepines Scrn Detected H (NotDetected) U Marijuana (THC) Screen Detected H (NotDetected) Assessment and Plan (1) Bipolar disorder Narrative/Plan: Management per psych Status: Acute (2) Depression Status: Acute (3) Suicidal ideation Narrative/Plan: Management per psych Suicide precautions Status: Acute (4) DVT prophylaxis Narrative/Plan: Ambulatory and low risk Status: Acute Plan: Patient has no medical problems or concerns at this point. I will review labs once available Thank you for allowing me the opportunity to perspective in the care of this patient we will sign off at this time please don't hesitate to call with any questions Time with Patient: Greater than 30
[2016-10-17] MEDS: NICOTINE 14MG/24HR PATCH TRANSDERM SCH (08:38)
[2016-10-17 09:28] LABS: Basophils # (A) 0.1 k/uL (0-0.2); Basophils % (A) 1 %; CH 30.8; CHCM 33.4; Eosinophils # (A) 0.2 k/uL (0-0.7); Eosinophils % (A) 3 %; HCT 50.2 % (39.0-53.0); HGB 15.9 gm/dL (13.0-17.5); Luc # (Auto) 0.15; Luc % (Auto) 2; Lymphocytes # (A) 2.7 k/uL (1.0-4.8); Lymphocytes % (A) 39 %; MCH 29.3 pg (25.0-35.0); MCHC 31.6 g/dL (31.0-37.0); MCV 92.6 fL (80.0-100.0); Mean Platelet Volume 7.6; Monocytes # (A) 0.4 k/uL (0-1.0); Monocytes % (A) 5 %; Neutrophils # (A) 3.4 k/uL (1.3-7.7); Neutrophils % (A) 50 %; RBC 5.42 m/uL (4.30-5.90); RDW 13.6 % (11.5-15.5); WBC 6.9 k/uL (3.8-10.6)
[2016-10-17 09:50] LABS: ALT 33 U/L (21-72); AST 24 U/L (17-59); Alkaline Phosphatase 55 U/L (38-126); Anion Gap 7 mmol/L; Blood Urea Nitrogen 12 mg/dL (9-20); Calcium 9.2 mg/dL (8.4-10.2); Carbon Dioxide 28 mmol/L (22-30); Chloride 103 mmol/L (98-107); Glucose 97 mg/dL (74-99); Non-African American GFR(MDRD) >60 (>60 ml/min/1.73 sqM); Potassium 4.3 mmol/L (3.5-5.1); Sodium 138 mmol/L (137-145); Total Protein 6.6 g/dL (6.3-8.2)
[2016-10-17] MEDS: SERTRALINE 50 MG TAB PO SCH (10:54)
[2016-10-17] MEDS: OLANZapine 5 MG TAB PO SCH ×3 (10:54→21:14)
[2016-10-17] MEDS: IBUPROFEN 800 MG TAB PO SCH ×3 (10:55→21:13)
[2016-10-17] MEDS ORDERED: OLANZapine 5 MG TAB PO PRN (12:20)
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
[2016-10-18 06:59] VITALS: BP 124/67; PULSE 68; RESP 18; TEMP 98
[2016-10-18] MEDS: NICOTINE 14MG/24HR PATCH TRANSDERM SCH (08:26)
[2016-10-18] MEDS: IBUPROFEN 800 MG TAB PO SCH ×2 (08:26→15:29)
[2016-10-18] MEDS: SERTRALINE 50 MG TAB PO SCH (08:26)
[2016-10-18] MEDS: OLANZapine 5 MG TAB PO SCH ×2 (08:26→15:29)
== END 2016-10-18 16:56 | disposition home or self-care (01) | DRG 885 ==
LOC: EC 13:33 → 3MHU 16:15
PROVIDERS: ADMIT Psychiatry & Neurology Psychiatry; ATTEND Psychiatry & Neurology Psychiatry
DX: F31.9 Bipolar disorder, unspecified (principal); R45.851 Suicidal ideations; F43.10 Post-traumatic stress disorder, unspecified; G89.29 Other chronic pain; M54.5 Low back pain; F12.288 Cannabis dependence with other cannabis-induced disorder; F17.200 Nicotine dependence, unspecified, uncomplicated; F90.9 Attention-deficit hyperactivity disorder, unspecified type; Z79.899 Other long term (current) drug therapy; Z98.42 Cataract extraction status, left eye; Z98.41 Cataract extraction status, right eye; Z96.1 Presence of intraocular lens
CPT/HCPCS: 80053; 80306; 82075; 84443; 85025; 99285

== ENCOUNTER 2017-03-12 11:37 | Emergency (ER) | payer OTHER ==
[2017-03-12 11:56] VITALS: BP 135/74; PULSE 87; RESP 18; TEMP 98.9
--- NOTE | 2017-03-12 12:27 | XR ---
EXAMINATION TYPE: XR knee complete LT DATE OF EXAM: 03/12/2017 CLINICAL HISTORY: pain TECHNIQUE: Three views of the left knee are obtained. COMPARISON: None. FINDINGS: There is no acute fracture/dislocation. The tri-compartment joint spaces appear within no rmal limits. Healed fracture proximal fibula. Subcutaneous radiopaque densities infrapatellar soft ti ssues. IMPRESSION: There is no acute fracture or dislocation ICD 10 NO FRACTURE, INITIAL EVALUATION
--- NOTE | 2017-03-12 12:29 | ED ---
General Adult HPI - General Chief complaint: Extremity Injury, Lower Stated complaint: Knee pain Time Seen by Provider: 03/12/17 12:17 Source: patient, RN notes reviewed Mode of arrival: ambulatory Limitations: no limitations - History of Present Illness Initial comments: 32-year-old male who presents emergency room today with chief complaint of injury to his left knee times one day. Patient has met that he slipped on the monitor falling down on a step onto the anterior aspect of left knee. He does admit to pain locally to this area worse with certain movements of flexion and extension. Patient denies any other injury or complaint. Patient denies any recent fever, chills, shortness of breath, chest pain, back pain, abdominal pain , nausea or vomiting, numbness or tingling, headaches or visual changes, or any other complaints. - Related Data Previous Rx's Medication Instructions Recorded Methocarbamol [Robaxin] 750 mg PO TID PRN #15 tab 10/12/16 ARIPiprazole [Abilify Maintena] 400 mg IM QMONTH #1 10/18/16 Ibuprofen [Motrin] 800 mg PO TID #90 tab 10/18/16 Naproxen 500 mg PO BID PRN #60 10/18/16 Nicotine 14Mg/24Hr Patch [Habitrol] 1 patch TRANSDERM DAILY patch 10/18/16 OLANZapine [ZyPREXA] 5 mg PO TID #90 tab 10/18/16 Sertraline [Zoloft] 50 mg PO DAILY #30 tab 10/18/16 Ibuprofen [Motrin] 600 mg PO Q6HR PRN #30 day 03/12/17 Allergies Allergy/AdvReac Type Severity Reaction Status Date / Time No Known Allergies Allergy Verified 03/12/17 11:56 Review of Systems ROS Statement: Those systems with pertinent positive or pertinent negative responses have been documented in the HPI. ROS Other: All systems not noted in ROS Statement are negative. Past Medical History Past Medical History: No Reported History Additional Past Medical History / Comment(s): "emotionally impaired" chronic back pain History of Any Multi-Drug Resistant Organisms: None Reported Past Surgical History: Orthopedic Surgery Additional Past Surgical History / Comment(s): ORIF left arm, nasal surgery due to fracture, left jaw, bilateral cataract removal and intraocular lens implants. Past Anesthesia/Blood Transfusion Reactions: No Reported Reaction Past Psychological History: ADD/ADHD, Anxiety, Bipolar, Depression Smoking Status: Current every day smoker Past Alcohol Use History: Occasional Past Drug Use History: None Reported - Past Family History Father Additional Family Medical History / Comment(s): Father is alive at age 59 with history of hypertension. Mother Additional Family Medical History / Comment(s): Mother is alive at age 61 with history of coronary artery disease status post CABG, CVA. Brother(s) Additional Family Medical History / Comment(s): Patient has 2 brothers and one has problems with kidney stones. Patient has 1 sister with no major medical problems. Patient has 1 daughter that is having problems with her heart. General Exam - General Exam Comments Initial Comments: General: The patient is awake and alert, in no distress, and does not appear acutely ill. Neck: The neck is supple, there is no tenderness or JVD. Cardiovascular: There is a regular rate and rhythm. No murmur, rub or gallop is appreciated. Respiratory: Lungs are clear to auscultation, respirations are non-labored, breath sounds are equal. No wheezes, stridor, rales, or rhonchi. Musculoskeletal: Patient has abrasion over the anterior aspect of the left knee. Shows full range motion both flexion and extension. Sensations are intact. Pulses equal bilaterally 2+. Strength 5/5. Mild tenderness over the anterior aspect on palpation. Neurological: A&O x 3. CN II-XII intact, There are no obvious motor or sensory deficits. Coordination appears grossly intact. Speech is normal. Skin: Skin is warm and dry and no rashes or lesions are noted. Psychiatric: Normal mood and affect. Limitations: no limitations Course Vital Signs 03/12/17 11:53 Temperature 98.9 F Pulse Rate 87 Respiratory 18 Rate Blood Pressure 135/74 O2 Sat by Pulse 97 Oximetry Medical Decision Making - Medical Decision Making X-rays reviewed are negative for any acute fracture dislocation. Results were discussed with patient. Patient advised to use Lauro wrap for compression. Advised to ice elevate the area and ibuprofen for pain. Advised follow-up in 7- 10 days if symptoms persist. Patient states understanding and is in agreement. Disposition Clinical Impression: Contusion of left knee Disposition: HOME SELF-CARE Condition: Good Instructions: Knee Pain (ED) Additional Instructions: Please use ibuprofen as prescribed. Please continue to ice elevate the affected area and follow-up in 7-10 days for repeat x-rays if symptoms persist. Please return to emergency room if the symptoms increase or worsen or for any other concerns. Prescriptions: Ibuprofen [Motrin] 600 mg PO Q6HR PRN #30 day PRN Reason: Pain Referrals: None,Stated [Primary Care Provider] - 1-2 days Tyler Yancey MD [STAFF PHYSICIAN] - 1-2 days Time of Disposition: 12:38
== END 2017-03-12 12:45 | disposition home or self-care (01) ==
LOC: EC 11:37
DX: S80.02XA Contusion of left knee, initial encounter (principal); F17.200 Nicotine dependence, unspecified, uncomplicated; W01.0XXA Fall on same level from slipping, tripping and stumbling without subsequent striking against object, initial encounter
CPT/HCPCS: 99283

== ENCOUNTER 2017-09-06 16:40 | Inpatient (IN) | payer MEDICAID, OTHER ==
--- NOTE | 2017-09-06 17:33 | ED ---
General Adult HPI - General Chief complaint: Psychiatric Symptoms Stated complaint: Suicidal/Mental Health Time Seen by Provider: 09/06/17 17:06 Source: patient Mode of arrival: ambulatory Limitations: no limitations - History of Present Illness Initial comments: Zoe is a 32-year-old -[place] male with a past medical history of bipolar who presents the emergency department today for a psychiatric evaluation. Zoe reports that he has noticed recently that he has not been taking good care of himself, he states that he is not cleaning himself or showering. He reports that he feels he is becoming confused between reality and what is not reality. He states that he has became very depressed recently, he admits that he was approximately 2 years ago but continues to feel the psychological and social stress of being . He states that over the weekend he was feeling very depressed so he decided to do cocaine, however he inadvertently did crack cocaine. Patient states that he believes using crack cocaine may have contributed to his confusion about reality. He states that he is having thoughts of hurting himself. He states that he took a parachute supervisor knife and Presta to his wrists but did not cut himself. He does have a history of suicide attempt by cutting his wrist in the past. - Related Data Home Medications Medication Instructions Recorded Confirmed Escitalopram [Lexapro] 10 mg PO DAILY 09/06/17 09/06/17 OLANZapine [OLANZapine Odt] 20 mg PO BID 09/06/17 09/06/17 Previous Rx's Medication Instructions Recorded ARIPiprazole [Abilify Maintena] 400 mg IM QMONTH #1 10/18/16 Allergies Allergy/AdvReac Type Severity Reaction Status Date / Time No Known Allergies Allergy Verified 09/06/17 17:18 Review of Systems ROS Statement: Those systems with pertinent positive or pertinent negative responses have been documented in the HPI. ROS Other: All systems not noted in ROS Statement are negative. Constitutional: Denies: fever Eyes: Denies: vision change ENT: Denies: throat pain Respiratory: Denies: cough, dyspnea Cardiovascular: Denies: chest pain, palpitations Endocrine: Denies: fatigue Gastrointestinal: Denies: abdominal pain, nausea, vomiting Genitourinary: Denies: urgency, dysuria Musculoskeletal: Denies: back pain Skin: Denies: rash, lesions Neurological: Denies: headache, weakness Psychiatric: Reports: anxiety, depression, suicidal thoughts Hematological/Lymphatic: Denies: easy bleeding, easy bruising Past Medical History Past Medical History: No Reported History Additional Past Medical History / Comment(s): "emotionally impaired" chronic back pain History of Any Multi-Drug Resistant Organisms: None Reported Past Surgical History: Orthopedic Surgery Additional Past Surgical History / Comment(s): ORIF left arm, nasal surgery due to fracture, left jaw, bilateral cataract removal and intraocular lens implants. Past Anesthesia/Blood Transfusion Reactions: No Reported Reaction Past Psychological History: ADD/ADHD, Anxiety, Bipolar, Depression Smoking Status: Current every day smoker Past Alcohol Use History: Occasional Past Drug Use History: Cocaine, Methamphetamine - Past Family History Father Additional Family Medical History / Comment(s): Father is alive at age 59 with history of hypertension. Mother Additional Family Medical History / Comment(s): Mother is alive at age 61 with history of coronary artery disease status post CABG, CVA. Brother(s) Additional Family Medical History / Comment(s): Patient has 2 brothers and one has problems with kidney stones. Patient has 1 sister with no major medical problems. Patient has 1 daughter that is having problems with her heart. General Exam Limitations: no limitations General appearance: alert, in no apparent distress Head exam: Present: atraumatic, normocephalic Eye exam: Present: normal appearance, PERRL ENT exam: Present: normal exam Neck exam: Present: normal inspection, full ROM Respiratory exam: Absent: respiratory distress Cardiovascular Exam: Present: regular rate, normal rhythm GI/Abdominal exam: Present: soft. Absent: distended Rectal exam: Present: deferred Extremities exam: Present: normal inspection Back exam: Present: normal inspection Neurological exam: Present: alert, oriented X3 Psychiatric exam: Present: depressed, flat affect Skin exam: Present: warm, dry, other (well healed left forearm surgical scar) Course Vital Signs 09/06/17 16:57 Temperature 98.7 F Pulse Rate 75 Respiratory 18 Rate Blood Pressure 117/74 O2 Sat by Pulse 97 Oximetry Medical Decision Making - Medical Decision Making Patient seen and evaluated History obtained from patient Patient with suicidal thoughts, depression Patient medically cleared for evaluation by psychiatry Patient evaluated by psychiatry, he signed in voluntarily Patient transferred to psych - Lab Data Lab Results 09/06/17 Range/Units 19:26 Urine Opiates Screen Not Detected (NotDetected) Ur Oxycodone Screen Not Detected (NotDetected) Urine Methadone Screen Not Detected (NotDetected) Ur Propoxyphene Screen Not Detected (NotDetected) Ur Barbiturates Screen Not Detected (NotDetected) U Tricyclic Antidepress Not Detected (NotDetected) Ur Phencyclidine Scrn Not Detected (NotDetected) Ur Amphetamines Screen Not Detected (NotDetected) U Methamphetamines Scrn Not Detected (NotDetected) U Benzodiazepines Scrn Not Detected (NotDetected) Urine Cocaine Screen Not Detected (NotDetected) U Marijuana (THC) Screen Detected H (NotDetected) Disposition Clinical Impression: Major depression Disposition: TRANSFER TO PSYCH HOSP/UNIT Time of Disposition: 21:54
[2017-09-06 19:56] LABS: Amphetamine Screen,Urine Not Detected (NotDetected); Barbiturate Screen,Urine Not Detected (NotDetected); Benzodiazepines Screen,Urine Not Detected (NotDetected); Cocaine Screen,Urine Not Detected (NotDetected); Methadone Screen, Urine Not Detected (NotDetected); Opiate Screen,Urine Not Detected (NotDetected); Oxycodone Screen, Urine Not Detected (NotDetected); Phencyclidine Screen,Urine Not Detected (NotDetected); Tricyclic Antidepressant,Urine Not Detected (NotDetected); Urn Cannabinoid Scrn Detected (NotDetected)
[2017-09-06] MEDS ORDERED: MAGNESIUM HYDROXIDE 2,400 MG/10 ML CUP PO PRN (21:54)
[2017-09-06] MEDS ORDERED: MAG HYDROX/AL HYDROX/SIMETH 30 ML CUP PO PRN (21:54)
[2017-09-06] MEDS ORDERED: ACETAMINOPHEN TAB 325 MG TAB PO PRN (21:54)
[2017-09-06 22:12] LABS: Appearance,Urine Clear (Clear); Bilirubin,Urine Negative (Negative); Blood,Urine Negative (Negative); Color,Urine Yellow; Glucose,Urine (UA) Negative (Negative); Ketones,Urine Negative (Negative); Leukocyte Esterase,Urine Negative (Negative); Nitrite,Urine Negative (Negative); PH, Urine 5.5 (5.0-8.0); Protein,Urine Negative (Negative); Urobilinogen,Urine <2.0 mg/dL (<2.0)
[2017-09-06 22:59] VITALS: BMI 44.8
[2017-09-07 08:53] LABS: Basophils # (A) 0.1 k/uL (0-0.2); Basophils % (A) 1 %; Eosinophils # (A) 0.3 k/uL (0-0.7); Eosinophils % (A) 4 %; HCT 48.2 % (39.0-53.0); HGB 16.1 gm/dL (13.0-17.5); Lymphocytes # (A) 2.3 k/uL (1.0-4.8); Lymphocytes % (A) 31 %; MCHC 33.4 g/dL (31.0-37.0); MCV 86.8 fL (80.0-100.0); Mean Platelet Volume 7.4; Monocytes # (A) 0.5 k/uL (0-1.0); Monocytes % (A) 7 %; Neutrophils # (A) 4.2 k/uL (1.3-7.7); Neutrophils % (A) 56 %; Platelet Count 208 k/uL (150-450); RBC 5.55 m/uL (4.30-5.90); RDW 13.3 % (11.5-15.5); WBC 7.5 k/uL (3.8-10.6)
[2017-09-07 09:06] LABS: Potassium 4.2 mmol/L (3.5-5.1)
[2017-09-07 09:07] LABS: Albumin 4.4 g/dL (3.5-5.0); Calcium 9.6 mg/dL (8.4-10.2); Total Bilirubin 0.8 mg/dL (0.2-1.3); Total Protein 7.5 g/dL (6.3-8.2)
[2017-09-07] MEDS: ESCITALOPRAM 5 MG TAB PO SCH (11:55)
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
[2017-09-07 18:49] LABS: Hemoglobin A1C 5.3 % (4.0-6.0)
[2017-09-07] MEDS ORDERED: hydrOXYzine PAMOATE 25 MG CAP PO PRN (20:23)
[2017-09-08] MEDS: ESCITALOPRAM 5 MG TAB PO SCH (08:20)
--- NOTE | 2017-09-08 10:54 | P.CONS ---
History of Present Illness - Reason for Consult Consult date: 09/07/17 Medical management - History of Present Illness 32-year-old -[place] male with a past medical history of bipolar who presents the emergency department today for a psychiatric evaluation. Zoe reports that he has noticed recently that he has not been taking good care of himself, he states that he is not cleaning himself or showering. He reports that he feels he is becoming confused between reality and what is not reality. He states that he has became very depressed recently, he admits that he was approximately 2 years ago but continues to feel the psychological and social stress of being . He states that over the weekend he was feeling very depressed so he decided to do cocaine, however he inadvertently did crack cocaine. Patient states that he believes using crack cocaine may have contributed to his confusion about reality. He states that he is having thoughts of hurting himself. He states that he took a manager workers compensation knife and pressed to his wrists but did not cut himself. He does have a history of suicide attempt by cutting his wrist in the past. Review of Systems Constitutional: Reports anorexia, Reports fatigue Eyes: denies blurred vision Ears, nose, mouth and throat: Reports headache Cardiovascular: Denies chest pain, Denies shortness of breath Respiratory: Reports cough Gastrointestinal: Reports loss of appetite Genitourinary: Denies dysuria, Denies hematuria Musculoskeletal: Reports muscle weakness, Reports myalgias Integumentary: Denies color changes, Denies rash Neurological: Reports confusion Psychiatric: Reports change in appetite, Reports confusion, Reports difficulty concentrating, Reports disorientation, Reports suicidal ideation Endocrine: Reports excessive thirst Past Medical History Past Medical History: No Reported History Additional Past Medical History / Comment(s): "emotionally impaired" chronic back pain History of Any Multi-Drug Resistant Organisms: None Reported Past Surgical History: Orthopedic Surgery Additional Past Surgical History / Comment(s): ORIF left arm, nasal surgery due to fracture, left jaw, bilateral cataract removal and intraocular lens implants. Past Anesthesia/Blood Transfusion Reactions: No Reported Reaction Smoking Status: Current every day smoker - Past Family History Father Additional Family Medical History / Comment(s): Father is alive at age 59 with history of hypertension. Mother Additional Family Medical History / Comment(s): Mother is alive at age 61 with history of coronary artery disease status post CABG, CVA. Brother(s) Additional Family Medical History / Comment(s): Patient has 2 brothers and one has problems with kidney stones. Patient has 1 sister with no major medical problems. Patient has 1 daughter that is having problems with her heart. Medications and Allergies Home Medications Medication Instructions Recorded Confirmed Type ARIPiprazole [Abilify Maintena] 400 mg IM QMONTH #1 10/18/16 09/06/17 Rx Escitalopram [Lexapro] 10 mg PO DAILY 09/06/17 09/06/17 History OLANZapine [OLANZapine Odt] 20 mg PO BID 09/06/17 09/06/17 History Allergies Allergy/AdvReac Type Severity Reaction Status Date / Time No Known Allergies Allergy Verified 09/06/17 22:39 Physical Exam Vitals: Vital Signs Temp Pulse Pulse Resp BP BP Pulse Ox 09/07/17 06:35 98 F 72 18 143/82 09/06/17 22:51 97.9 F 66 16 129/76 09/06/17 21:59 98.2 F 69 20 130/76 98 09/06/17 16:57 98.7 F 75 18 117/74 97 Intake and Output 09/06/17 09/07/17 09/07/17 22:59 06:59 14:59 Other: Weight 129.9 kg - Constitutional General appearance: Present: average body habitus, cooperative, no acute distress - EENT Eyes: Present: anicteric sclerae, EOMI, PERRLA, normal appearance ENT: Present: hearing grossly normal, normal oropharynx Ears: bilateral: normal - Neck Neck: Present: normal ROM. Absent: lymphadenopathy, rigidity, thyromegaly Carotids: negative: bruit present Thyroid: bilateral: normal size, negative: enlarged, nodule - Respiratory Respiratory: bilateral: CTA, negative: rales, rhonchi, wheezing - Cardiovascular Rhythm: regular Heart sounds: normal: S1, S2 Abnormal Heart Sounds: Absent: systolic murmur, diastolic murmur - Gastrointestinal General gastrointestinal: Present: normal bowel sounds, soft. Absent: distended , organomegaly, tenderness - Genitourinary Genitourinary Comment(s): deferred - Integumentary Integumentary: Present: normal turgor. Absent: jaundiced, rash, ulcer - Neurologic Neurologic: Present: CNII-XII intact. Absent: focal deficits - Musculoskeletal Musculoskeletal: Present: gait normal, strength equal bilaterally - Psychiatric Psychiatric: Present: A&O x's 3, appropriate affect, intact judgment & insight Results CBC & Chem 7: 09/07/17 08:19 09/07/17 08:19 Labs: Abnormal Lab Results - Last 24 Hours (Table) 09/06/17 09/07/17 Range/Units 19:26 08:19 Creatinine 1.36 H (0.66-1.25) mg/dL Triglycerides 222 H (<150) mg/dL HDL Cholesterol 38 L (40-60) mg/dL U Marijuana (THC) Screen Detected H (NotDetected) Assessment and Plan Assessment: 1. Suicidal attempt - Your management 2. Uncontrolled hypertension - Patient has not formally been diagnosed with hypertension - We will monitor blood pressure closely at this time and prescribed medication if blood pressure remains elevated 3. Degenerative joint disease; stable 4. Chronic back pain; - Complaints of back pain and wants to be prescribed pain medication - Patient refuses to try Tylenol or Motrin - We will not prescribe any narcotic medications secondary to history of substance abuse 5. Substance abuse; per your management We wish to thank you for this kind consultation; we will follow the patient with you; please call for any questions and concerns Time with Patient: Greater than 30
--- NOTE | 2017-09-08 12:08 | P.PN ---
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 He was admitted for symptoms of depression in the context of having an ongoing diagnosis of bipolar disorder. He does have a history of using cocaine and reports recently he was given methamphetamine. He describes feeling anxious and asks for a different type of medication for that we discussed that we could titrate the Vistaril further. He has been attending groups he has been eating. Mental status exam: The patient is an overweight -[place] male appearing his stated age. He presents with good hygiene grooming he wears eyeglasses. He is dressed in his own clothing. He seated calmly at the table. He describes a depressed mood with hopelessness thoughts with recent suicidal ideation. He reports no homicidal ideation. He describes having no auditory or visual hallucinations or specific delusions there is no observed evidence of psychosis. He demonstrates no tangential thinking loose associations or flight of ideas. He does not appear hypomanic or manic currently. Affect is constricted. He Plan: The patient will continue on his current medication. He is on Abidianefbethany maintena Lexapro 5 mg daily was started. He has no questions or concerns regarding Lexapro. We will increase the Vistaril to 50 mg up to twice daily as needed for anxiety. He is encouraged to verbalize his feelings of anxiety and develop coping skills further. Vital signs reviewed. We will continue monitoring him for safety.
[2017-09-08] MEDS: hydrOXYzine PAMOATE 25 MG CAP PO PRN (12:23)
[2017-09-08] MEDS ORDERED: ZIPRASIDONE 20 MG VIAL IM PRN (14:58)
[2017-09-09] MEDS: ESCITALOPRAM 5 MG TAB PO SCH (08:58)
--- NOTE | 2017-09-09 11:29 | P.PN ---
Progress Note - Text Interval history: The patient's found in the hallway he follows me to an interview room. He states that his mood is depressed he feels hopeless and he still has suicidal thoughts. He states that he is not ready to be discharged. He did sleep well last night. He ended up taking a Geodon injection as he felt agitated. Per yesterday's discussion we decided not to initiate any benzodiazepines. Appetite stable. He was observed attending groups this morning. Mental status exam: The patient is an overweight -[place] male appearing his stated age. He is dressed in his own clothing hygiene is adequate. He is cooperative he demonstrates spontaneous speech throughout the session he's mildly verbose but easily directed. He endorses a depressed mood with hopelessness thinking and ongoing suicidal thoughts. He demonstrates no verbal or physical aggressiveness. No thoughts of harming others. He reports no symptoms of psychosis there is no observed evidence of psychosis. He does not appear hypomanic or manic. Insight and judgment limited but improving. He remains oriented to person place and date. Plan: We will titrate the Lexapro to 10 mg daily, he is encouraged to continue developing coping skills with group participation. Vital signs reviewed. We will continue to monitor him for safety.
[2017-09-09] MEDS: LOPERAMIDE 2 MG CAP PO PRN (11:34)
[2017-09-09] MEDS: ZIPRASIDONE 20 MG VIAL IM PRN (15:41)
[2017-09-09] MEDS: hydrOXYzine PAMOATE 25 MG CAP PO PRN ×2 (17:16→21:38)
[2017-09-10] MEDS: ESCITALOPRAM 10 MG TAB PO SCH (08:54)
[2017-09-10] MEDS: hydrOXYzine PAMOATE 25 MG CAP PO PRN ×2 (08:54→21:13)
[2017-09-10] MEDS: ZIPRASIDONE 20 MG VIAL IM PRN (08:55)
--- NOTE | 2017-09-10 10:53 | P.PN ---
Progress Note - Text Progress Note Date: 09/10/17 Interval History: Patient is a 32-year-old male who was seen today and he reports that he continues to have anxiety and panic attacks and that nothing helps. He stated that he needed something now because he uses marijuana on the outside and again stated that he wanted something now. Patient states that the Vistaril is not been helpful and that nothing has been helpful. He states that he wants Xanax shot or something to help him now and got up and abruptly left the interview room. Mental Status: Appearance/Attitude: Patient is dressed in hospital gown, made eye contact and was superficially cooperative. Behavior: Patient did not exhibit any psychomotor agitation or retardation however he did get up and abruptly leave the interview room after demanding that he needed something now for anxiety Speech/Language: Patient's speech was spontaneous of normal volume and rhythm and he was coherent Thought Process: Patient was goal-directed there is no evidence of loose association or flight of ideas Thought Content: Patient did not complete the interview but did not appear to be responding to internal stimuli. Patient stated that nothing is helping with his anxiety stating that the Vistaril didn't help even with an increased dose and states that the Lexapro has not been effective either. Patient states that he is having panic attacks and anxiety but did not elaborate or was unable to elaborate on the symptoms stating that he uses marijuana on the outside for this. Suicidal/Homicidal Ideation: Not assessed as patient left the interview room abruptly Sensorium/Cognition: Patient is alert and oriented to person, place, and time and his recent and remote memory are grossly intact. Mood/Affect: Patient's mood remains irritable and his affect is appropriate to his mood. Insight/Judgment: Patient's insight and judgment are fair Assessment: Patient came to the interview room stating that nothing is helping with his anxiety and panic attacks, he was unable to describe them further and states that the Lexapro and the increased dose and Vistaril have been unhelpful. He states that he uses marijuana at home to target this symptom. Patient left the office because he wanted something immediately for anxiety either Xanax or shot of something. In checking with the records at [facility] the patient was 2-1/2 weeks late for his last injection of Abilify and did not receive one until 08/09 and his next injection was due on . Patient slept for 7 hours last night Plan: Patient will continue on Lexapro 10 mg which was increased today, Vistaril 50 mg twice a day when necessary for anxiety and he will receive his Abilify 400 mg Maintenna injection today. Patient and I discussed that he would not be receiving any benzodiazepines while he is here and he abruptly left the interview room. Patient continues to require hospitalization to further stabilize his mood.
[2017-09-10] MEDS ORDERED: ARIPiprazole 400 MG VIAL (NO CHARGE) IM ONE (11:00)
[2017-09-10] MEDS: LOPERAMIDE 2 MG CAP PO PRN (21:14)
[2017-09-11 06:28] VITALS: TEMP 97.9
[2017-09-11] MEDS: ESCITALOPRAM 10 MG TAB PO SCH (08:25)
[2017-09-11] MEDS: hydrOXYzine PAMOATE 25 MG CAP PO PRN ×2 (12:03→21:29)
--- NOTE | 2017-09-11 14:09 | P.PN ---
Progress Note - Text Progress Note Date: 09/11/17 Interval History: Patient is a 32-year-old male who was seen today and he reports that he's not feeling depressed but was up most of the night secondary to his roommate and went and slept in the day room. He reports no auditory hallucinations. He states that he continues to have suicidal thoughts off-and- on to cut his wrists. Patient states that he was using cocaine prior to coming into the hospital to improve his mood. He states that he is still upset about his divorce. Patient requested that I give him something to treat his kidney problem. Patient states that he used the Vistaril yesterday with moderate results. Mental Status: Appearance/Attitude: Patient is dressed in a hospital gown, makes good eye contact and was cooperative Behavior: Patient does not exhibit any psychomotor agitation or retardation. Speech/Language: Patient's speech is spontaneous of normal volume and rhythm and he is coherent. Thought Process: Patient's thought processes are goal-directed there is no evidence of loose association or flight of ideas Thought Content: Patient denies any auditory or visual hallucinations and no delusions or paranoid ideation were elicited. Patient states that he didn't sleep well last night due to his roommate but has been eating well. He voices concerns that he still upset about his divorce and states that he has suicidal thoughts off-and-on about cutting his wrists. Suicidal/Homicidal Ideation: Patient reports continued suicidal thoughts on and off about cutting his wrist but states he has no intent to act while here and no current homicidal ideation. Sensorium/Cognition: Patient is alert and oriented to person, place, and time and his recent and remote memory are grossly intact. Mood/Affect: Patient's mood is less depressed and his affect is appropriate Insight/Judgment: Patient's insight and judgment are fair Assessment: Patient has been attending groups and activities, reports that he is not sleeping well at night due to his roommate. He states that he is no longer feeling as depressed as when he came in but continues to have suicidal thoughts off-and-on he states this is secondary to his divorce. Patient states he was using cocaine to improve his mood as an outpatient. Patient stated that he wanted something to treat his kidney problem. Patient has an elevated creatinine level in his blood pressure is been okay here. Plan: Patient continue Lexapro 10 mg to target his mood and he received Abilify long-acting injectable 400 mg yesterday. Patient also has Vistaril 50 mg as needed twice a day for anxiety. Patient and I discussed discharge later this week and he states that that is acceptable to him and he will return home to live alone. Patient requires hospitalization to further stabilize his mood and target his suicidal thoughts.
[2017-09-11] MEDS: ZIPRASIDONE 20 MG VIAL IM PRN (15:05)
[2017-09-12 06:55] VITALS: BP 135/69; PULSE 68; RESP 16
[2017-09-12] MEDS: ESCITALOPRAM 10 MG TAB PO SCH (08:47)
[2017-09-12] MEDS: hydrOXYzine PAMOATE 25 MG CAP PO PRN (08:48)
--- NOTE | 2017-09-12 10:43 | P.DS ---
Providers Date of admission: 09/06/17 21:51 Expected date of discharge: 09/12/17 Attending physician: Linda Andres MD Consults: 09/06/17 21:54 Consult Physician Routine Consulting Provider: Gabriel Bernard Consult Reason/Comments: H & P and medical care Do you want consulting provider notified?: Yes Primary care physician: Stated None Hospital Course: Discharge Diagnosis: Bipolar disorder type I, current episode depressed; marijuana use disorder, moderate; cocaine use disorder, mild Reason for Admission: Patient is a 32-year-old male who states that he called his therapist yesterday told her that he was suicidal with increasing depression and was brought to the hospital. Patient states his depression has been increasing with suicidal thoughts since May. He states he [facility] since that time. He states he was placed on Lexapro at that time but never took it because he doesn't like to take oral medication. He states that he also has not ever taken the Zyprexa that was begun prior to that. Patient states that 3-4 days ago he used cocaine but found out later that it was methamphetamine. He states he uses cocaine at least once a month. He states he never uses methamphetamine. He states this made him feel worse 3-4 days ago. He reports using marijuana 4 times a day and has done so since the age 16. States he had suicidal thoughts and wanted to wanted to cut his wrist and had a knife out but got scared and called his mom and came to the hospital. Patient states that he cut his wrist once in the past that did not require sutures and this was last year prior to one of his admissions. He states that he took an overdose 3 years ago. Patient states that his symptoms began and he was in his early 20s because he was always frustrated and his moods went up and down at that time. He states he's had episodes of rapid speech, increased energy decreased need for sleep as well as inappropriate ideas about what he could do. He states he had an impulsive behavior regarding drugs and alcohol as well as spending money. Patient states that he would also have episodes of depression with suicidal ideation previous sleep too much and stay in bed not showering with the decreased appetite and he states that this is currently how is feeling. States that he is not caring for his ADLs or his apartment. States that he uses cocaine to improve his mood. Patient does not endorse any symptoms of auditory hallucinations, visual hallucinations or paranoid ideation at this time. Patient states that he also has had an anger issue in the past and 7 years ago when after his father and he states he was using Xanax at the time. He states he was charged with great bodily harm and spent 1 year in correction. Patient states that in his 20s he used to get into physical confrontations with others but has not done so for the last 4-5 years. Patient states he's been on Abilify long- acting injectable for 2 years now and feels that it has stabilized his mood to some degree. Patient states that currently he is only on Abilify long-acting injectable 400 mg every 28 days and is to receive his next injection on Sunday. He states he never started the Zyprexa or Lexapro that were prescribed by [facility] and was last seen by a psychiatrist in May. He states he has been seeing his therapist for those appointments. Mental status on Admission: Appearance/Attitude: Patient is dressed in a hospital gown, makes intermittent eye contact and was cooperative Behavior: Patient did not exhibit any psychomotor agitation or retardation. Speech/Language: Patient's speech was spontaneous of normal volume and rhythm and he was coherent Thought Process: Patient was goal-directed there is no evidence of loose association or flight of ideas Thought Content: Patient denied any auditory or visual hallucinations and no delusions or paranoid ideation were elicited. Patient states that he's been sleeping too much staying in bed not showering or caring for his activities of daily living. He states that his appetite is decreased and his apartment is a mess. Patient states that he is feeling depressed, with little energy or interest to do things. Patient states that he has been using cocaine to improve his mood. Suicidal/Homicidal Ideation: Patient states that he had suicidal ideation yesterday to cut himself, he states that currently he is not feeling suicidal and no current homicidal ideation Sensorium/Cognition: Patient is alert and oriented to person, place, and time and his recent and remote memory are grossly intact Mood/Affect: Patient's mood is depressed and his affect is slightly blunted Insight/Judgment: patient's insight and judgment are fair Hospital Course: Patient was admitted on a voluntary basis, placed on routine observation in group and activity therapy were ordered. Patient also had routine laboratory studies as well as a medical consultation. Patient and I discussed the fact that he had been recommended to begin Lexapro at [facility] but it never started it and he was agreeable to a trial of that and was begun on Lexapro 5 mg daily. It was also confirmed when his next injection of Abilify long-acting injectable was due with [facility]. Patient was continued on Lexapro and it was increased to a dose of 10 mg daily. Patient reported that he was feeling less depressed but continued to have suicidal ideation and complained of anxiety. He was also begun on Vistaril 50 mg twice a day when necessary to target his anxiety. Patient did request injectable medication, Xanax for his anxiety, he was instructed to walk do deep breathing and he reported success with this. Patient received long- acting Abilify 400 mg IM on September 10. Patient reported no side effects from his medication and stated that he was sleeping fairly well, his appetite was good he was no longer feeling depressed and no longer reporting suicidal ideation. Patient reported no current psychotic symptoms. Patient states that he is moving to a smaller apartment and is planning to move this Sunday and is now motivated to go home and pack up his things, cleaning his apartment and move into his new [facility] apartment. Patient felt he was ready for discharge. Allergies No Known Allergies Allergy (Verified 09/06/17 22:39) Laboratory Last Values WBC 7.5 k/uL (3.8-10.6) 09/07/17 08:19 RBC 5.55 m/uL (4.30-5.90) 09/07/17 08:19 Hgb 16.1 gm/dL (13.0-17.5) 09/07/17 08:19 Hct 48.2 % (39.0-53.0) 09/07/17 08:19 MCV 86.8 fL (80.0-100.0) 09/07/17 08:19 MCH 29.0 pg (25.0-35.0) 09/07/17 08:19 MCHC 33.4 g/dL (31.0-37.0) 09/07/17 08:19 RDW 13.3 % (11.5-15.5) 09/07/17 08:19 Plt Count 208 k/uL (150-450) 09/07/17 08:19 Neutrophils % 56 % 09/07/17 08:19 Lymphocytes % 31 % 09/07/17 08:19 Monocytes % 7 % 09/07/17 08:19 Eosinophils % 4 % 09/07/17 08:19 Basophils % 1 % 09/07/17 08:19 Neutrophils # 4.2 k/uL (1.3-7.7) 09/07/17 08:19 Lymphocytes # 2.3 k/uL (1.0-4.8) 09/07/17 08:19 Monocytes # 0.5 k/uL (0-1.0) 09/07/17 08:19 Eosinophils # 0.3 k/uL (0-0.7) 09/07/17 08:19 Basophils # 0.1 k/uL (0-0.2) 09/07/17 08:19 Sodium 140 mmol/L (137-145) 09/07/17 08:19 Potassium 4.2 mmol/L (3.5-5.1) 09/07/17 08:19 Chloride 106 mmol/L (98-107) 09/07/17 08:19 Carbon Dioxide 25 mmol/L (22-30) 09/07/17 08:19 Anion Gap 9 mmol/L 09/07/17 08:19 BUN 12 mg/dL (9-20) 09/07/17 08:19 Creatinine 1.36 mg/dL (0.66-1.25) H 09/07/17 08:19 Est GFR (CKD-EPI)AfAm 79 (>60 ml/min/1.73 sqM) 09/07/17 08:19 Est GFR (CKD-EPI)NonAf 68 (>60 ml/min/1.73 sqM) 09/07/17 08:19 Glucose 91 mg/dL (74-99) 09/07/17 08:[address] Glu mg/dL 105 09/07/17 08:19 Hemoglobin A1c 5.3 % (4.0-6.0) 09/07/17 08:19 Calcium 9.6 mg/dL (8.4-10.2) 09/07/17 08:19 Total Bilirubin 0.8 mg/dL (0.2-1.3) 09/07/17 08:19 AST 26 U/L (17-59) 09/07/17 08:19 ALT 37 U/L (21-72) 09/07/17 08:19 Alkaline Phosphatase 80 U/L (38-126) 09/07/17 08:19 Total Protein 7.5 g/dL (6.3-8.2) 09/07/17 08:19 Albumin 4.4 g/dL (3.5-5.0) 09/07/17 08:19 Triglycerides 222 mg/dL (<150) H 09/07/17 08:19 Cholesterol 180 mg/dL (<200) 09/07/17 08:19 LDL Cholesterol, Calc 98 mg/dL (0-99) 09/07/17 08:19 HDL Cholesterol 38 mg/dL (40-60) L 09/07/17 08:19 TSH 1.090 mIU/L (0.465-4.680) 09/07/17 08:19 Urine Color Yellow 09/06/17 19:26 Urine Appearance Clear (Clear) 09/06/17 19:26 Urine pH 5.5 (5.0-8.0) 09/06/17 19:26 Ur Specific [place] 1.020 (1.001-1.035) 09/06/17 19:26 Urine Protein Negative (Negative) 09/06/17 19:26 Urine Glucose (UA) Negative (Negative) 09/06/17 19:26 Urine Ketones Negative (Negative) 09/06/17 19:26 Urine Blood Negative (Negative) 09/06/17 19:26 Urine Nitrite Negative (Negative) 09/06/17 19:26 Urine Bilirubin Negative (Negative) 09/06/17 19:26 Urine Urobilinogen <2.0 mg/dL (<2.0) 09/06/17 19:26 Ur Leukocyte Esterase Negative (Negative) 09/06/17 19:26 Urine Opiates Screen Not Detected (NotDetected) 09/06/17 19:26 Ur Oxycodone Screen Not Detected (NotDetected) 09/06/17 19:26 Urine Methadone Screen Not Detected (NotDetected) 09/06/17 19:26 Ur Propoxyphene Screen Not Detected (NotDetected) 09/06/17 19:26 Ur Barbiturates Screen Not Detected (NotDetected) 09/06/17 19:26 U Tricyclic Antidepress Not Detected (NotDetected) 09/06/17 19:26 Ur Phencyclidine Scrn Not Detected (NotDetected) 09/06/17 19:26 Ur Amphetamines Screen Not Detected (NotDetected) 09/06/17 19:26 U Methamphetamines Scrn Not Detected (NotDetected) 09/06/17 19:26 U Benzodiazepines Scrn Not Detected (NotDetected) 09/06/17 19:26 Urine Cocaine Screen Not Detected (NotDetected) 09/06/17 19:26 U Marijuana (THC) Screen Detected (NotDetected) H 09/06/17 19:26 Discharge Mental Status: Appearance/Attitude: Patient is dressed in a hospital gown, makes good eye contact and was cooperative. Behavior: Patient did not exhibit any psychomotor agitation or retardation. Speech/Language: Patient's speech was spontaneous of normal volume and rhythm and he was coherent. Thought Process: Patient was goal-directed there is no evidence of loose association or flight of ideas. Thought Content: Patient denied any auditory or visual hallucinations and no delusions or paranoid ideation were elicited. Patient states that he is no longer feeling depressed, or anxious and states that walking and doing the deep breathing was beneficial for his anxiety. Patient stated that his appetite and sleep were good. He reported that he is motivated to return home and clean and pack up his apartment as he is moving into a smaller place. Suicidal/Homicidal Ideation: Patient denied any current suicidal or homicidal ideation. Sensorium/Cognition: Patient is alert and oriented to person, place, and time and his recent and remote memory are grossly intact. Mood/Affect: Patient was euthymic and his affect was appropriate Insight/Judgment: Patient's insight and judgment are fair, we discussed the need for compliance with medication and follow-up as well as the need to remain sober. Risk Assessment: Patient's risk for readmission is moderate should he return to using drugs and/or alcohol and not be compliant with follow-up care and medications. Discharge Plan: Patient will return to live in his own apartment, he will follow up with [facility] and will continue on Lexapro 10 mg daily as well as Vistaril 50 mg twice a day as needed for anxiety. Patient will be given prescriptions for those 2 medications as well as Abilify Maintenna 400 mg due on October 08. Patient was encouraged to be compliant with follow-up care and medications. Patient was also encouraged to remain sober and avoid all alcohol and drugs. Patient Condition at Discharge: Stable Plan - Discharge Summary Discharge Rx Participant: No New Discharge Prescriptions: New hydrOXYzine PAMOATE [Vistaril] 50 mg PO BID PRN #28 cap PRN Reason: Anxiety Continue ARIPiprazole [Abilify Maintena] 400 mg IM QMONTH #1 suser.syr Escitalopram [Lexapro] 10 mg PO DAILY #14 tab Discontinued OLANZapine [OLANZapine Odt] 20 mg PO BID Discharge Medication List ARIPiprazole [Abilify Maintena] 400 mg IM QMONTH #1 suser.[email or web address] 09/12/17 [Rx] Escitalopram [Lexapro] 10 mg PO DAILY #14 tab 09/12/17 [Rx] hydrOXYzine PAMOATE [Vistaril] 50 mg PO BID PRN #28 cap 09/12/17 [Rx] Follow up Appointment(s)/Referral(s): [facility] [Outside] - 09/18/17 2:00 pm (09-18-17 @ 2:00 with Rachael Padilla 09-24-17 @ 9:[address] Davenport ) Kady Restrepo MD [REFERRING] - 1-2 days Patient Instructions/Handouts: Depression (DC), Suicide Prevention for Adults ( [place]) Discharge Disposition: HOME SELF-CARE
== END 2017-09-12 11:51 | disposition home or self-care (01) | DRG 885 ==
LOC: EC 16:40 → 3MHU 21:51
PROVIDERS: ADMIT Psychiatry & Neurology Psychiatry; ATTEND Psychiatry & Neurology Psychiatry
DX: F31.9 Bipolar disorder, unspecified (principal); R45.851 Suicidal ideations; F12.20 Cannabis dependence, uncomplicated; F14.10 Cocaine abuse, uncomplicated; F17.200 Nicotine dependence, unspecified, uncomplicated; F41.0 Panic disorder [episodic paroxysmal anxiety]; G89.29 Other chronic pain; I10 Essential (primary) hypertension; M19.90 Unspecified osteoarthritis, unspecified site; Z60.9 Problem related to social environment, unspecified; Z62.810 Personal history of physical and sexual abuse in childhood; Z79.899 Other long term (current) drug therapy; Z82.3 Family history of stroke; Z82.49 Family history of ischemic heart disease and other diseases of the circulatory system; Z91.19 Patient's noncompliance with other medical treatment and regimen; Z91.5 Personal history of self-harm; Z98.42 Cataract extraction status, left eye; Z98.41 Cataract extraction status, right eye; Z96.1 Presence of intraocular lens
CPT/HCPCS: 80053; 80061; 80306; 81003; 82075; 83036; 84443; 85025; 99285

== ENCOUNTER 2018-01-14 15:28 | Emergency (ER) | payer OTHER ==
[2018-01-14 15:34] VITALS: TEMP 98.3
--- NOTE | 2018-01-14 15:47 | ED ---
Psych HPI - General Chief Complaint: Psychiatric Symptoms Stated Complaint: Mental health Time Seen by Provider: 01/14/18 15:46 Source: patient, RN notes reviewed, old records reviewed Mode of arrival: ambulatory - History of Present Illness Initial Comments: This is a 32-year-old male the ER for evaluation. Patient has no psychiatric illness denies drug or alcohol abuse. Patient states she is currently having suicidal thoughts and he wants to slit his wrists MD Complaint: suicidal ideation, feels depressed -: unknown Associated Psychiatric Symptoms: depression, suicidal ideation History of same: Yes Quality: intermittent, getting worse Improves With: none Worsens With: none Associated Symptoms: denies other symptoms Treatments Prior to Arrival: none If Self Harm: admits thoughts of self harm - Related Data Home Medications Medication Instructions Recorded Confirmed Albuterol Inhaler [Ventolin Hfa 2 puff INHALATION RT-Q4H 01/14/18 01/14/18 Inhaler] HYDROcodone/APAP 10-325MG [Jeffrey 1 tab PO QID 01/14/18 01/14/18 10-325] Previous Rx's Medication Instructions Recorded ARIPiprazole [Abilify Maintena] 400 mg IM QMONTH #1 suser.syr 09/12/17 Escitalopram [Lexapro] 10 mg PO DAILY #14 tab 09/12/17 Allergies Allergy/AdvReac Type Severity Reaction Status Date / Time No Known Allergies Allergy Verified 01/14/18 16:13 Review of Systems ROS Statement: Those systems with pertinent positive or pertinent negative responses have been documented in the HPI. ROS Other: All systems not noted in ROS Statement are negative. Past Medical History Past Medical History: No Reported History Additional Past Medical History / Comment(s): "emotionally impaired" chronic back pain History of Any Multi-Drug Resistant Organisms: None Reported Past Surgical History: Orthopedic Surgery Additional Past Surgical History / Comment(s): ORIF left arm, nasal surgery due to fracture, left jaw, bilateral cataract removal and intraocular lens implants. Past Anesthesia/Blood Transfusion Reactions: No Reported Reaction Past Psychological History: ADD/ADHD, Anxiety, Bipolar, Depression Smoking Status: Current every day smoker Past Alcohol Use History: Occasional Past Drug Use History: None Reported - Past Family History Father Additional Family Medical History / Comment(s): Father is alive at age 59 with history of hypertension. Mother Additional Family Medical History / Comment(s): Mother is alive at age 61 with history of coronary artery disease status post CABG, CVA. Brother(s) Additional Family Medical History / Comment(s): Patient has 2 brothers and one has problems with kidney stones. Patient has 1 sister with no major medical problems. Patient has 1 daughter that is having problems with her heart. General Exam Limitations: no limitations General appearance: alert, in no apparent distress Head exam: Present: atraumatic, normocephalic, normal inspection Eye exam: Present: normal appearance, PERRL, EOMI. Absent: scleral icterus, conjunctival injection, periorbital swelling ENT exam: Present: normal exam, mucous membranes moist Neck exam: Present: normal inspection. Absent: tenderness, meningismus, lymphadenopathy Respiratory exam: Present: normal lung sounds bilaterally. Absent: respiratory distress, wheezes, rales, rhonchi, stridor Cardiovascular Exam: Present: regular rate, normal rhythm, normal heart sounds. Absent: systolic murmur, diastolic murmur, rubs, gallop, clicks GI/Abdominal exam: Present: soft, normal bowel sounds. Absent: distended, tenderness, guarding, rebound, rigid Extremities exam: Present: normal inspection, full ROM, normal capillary refill. Absent: tenderness, pedal edema, joint swelling, calf tenderness Back exam: Present: normal inspection Neurological exam: Present: alert, oriented X3, CN II-XII intact Psychiatric exam: Present: normal affect, normal mood Skin exam: Present: warm, dry, intact, normal color. Absent: rash Course Vital Signs 01/14/18 15:31 Temperature 98.3 F Pulse Rate 82 Respiratory 18 Rate Blood Pressure 154/79 O2 Sat by Pulse 95 Oximetry - Reevaluation(s) Reevaluation #1: Medical record is reviewed Medical Decision Making - Medical Decision Making 32 male seen and evaluated with psychiatry, patient does have safe place for discharge going home with parents, patient can be discharged home currently not homicidal or suicidal - Lab Data Lab Results 01/14/18 Range/Units 16:05 Urine Opiates Screen Not Detected (NotDetected) Ur Oxycodone Screen Not Detected (NotDetected) Urine Methadone Screen Not Detected (NotDetected) Ur Propoxyphene Screen Not Detected (NotDetected) Ur Barbiturates Screen Not Detected (NotDetected) U Tricyclic Antidepress Not Detected (NotDetected) Ur Phencyclidine Scrn Not Detected (NotDetected) Ur Amphetamines Screen Not Detected (NotDetected) U Methamphetamines Scrn Not Detected (NotDetected) U Benzodiazepines Scrn Detected H (NotDetected) Urine Cocaine Screen Not Detected (NotDetected) U Marijuana (THC) Screen Detected H (NotDetected) Disposition Clinical Impression: Major depression, Depression Disposition: HOME SELF-CARE Condition: Good Instructions: Depression (ED) Is patient prescribed a controlled substance at d/c from ED?: No Referrals: Kady Restrepo MD [Primary Care Provider] - 1-2 days
[2018-01-14 16:44] LABS: Amphetamine Screen,Urine Not Detected (NotDetected); Barbiturate Screen,Urine Not Detected (NotDetected); Benzodiazepines Screen,Urine Detected (NotDetected); Cocaine Screen,Urine Not Detected (NotDetected); Methadone Screen, Urine Not Detected (NotDetected); Opiate Screen,Urine Not Detected (NotDetected); Oxycodone Screen, Urine Not Detected (NotDetected); Phencyclidine Screen,Urine Not Detected (NotDetected); Tricyclic Antidepressant,Urine Not Detected (NotDetected); Urn Cannabinoid Scrn Detected (NotDetected)
[2018-01-14 20:56] VITALS: BP 153/92; PULSE 80; RESP 16
== END 2018-01-14 21:13 | disposition home or self-care (01) ==
LOC: EC 15:28
DX: F32.9 Major depressive disorder, single episode, unspecified (principal); F17.200 Nicotine dependence, unspecified, uncomplicated; Z79.891 Long term (current) use of opiate analgesic; Z79.899 Other long term (current) drug therapy
CPT/HCPCS: 80306; 82075; 99285

== ENCOUNTER 2018-07-25 08:48 | Emergency (ER) | payer OTHER ==
[2018-07-25] MEDS ORDERED: KETOROLAC 30 MG/ML 1 ML VIAL IVP STA (09:08)
[2018-07-25] MEDS ORDERED: SODIUM CHLORIDE 0.9% 1,000 ML IV STA (09:08)
--- NOTE | 2018-07-25 09:43 | XR ---
EXAMINATION TYPE: XR KUB DATE OF EXAM: 07/25/2018 COMPARISON: None INDICATION: Pain, diarrhea TECHNIQUE: Single view abdomen FINDINGS: Nonspecific bowel gas is present. Air is within the ascending and transverse colon region. A small am ount of small bowel gas may be in the epigastric region. No free air is evident. No suspicious air-fl uid levels or differential air-fluid levels are present. Psoas margins are normal. No organomegaly is present. IMPRESSION: 1. Nonspecific abdomen.
[2018-07-25 09:46] LABS: Basophils % (A) 1 %; Eosinophils # (A) 0.2 k/uL (0-0.7); Eosinophils % (A) 3 %; HCT 45.9 % (39.0-53.0); HGB 15.1 gm/dL (13.0-17.5); Lymphocytes % (A) 26 %; MCH 28.2 pg (25.0-35.0); MCV 85.6 fL (80.0-100.0); Mean Platelet Volume 7.6; Monocytes # (A) 0.4 k/uL (0-1.0); Monocytes % (A) 6 %; Neutrophils # (A) 4.8 k/uL (1.3-7.7); Neutrophils % (A) 63 %; Platelet Count 208 k/uL (150-450); RBC 5.37 m/uL (4.30-5.90); RDW 14.5 % (11.5-15.5); WBC 7.6 k/uL (3.8-10.6)
[2018-07-25 09:48] LABS: Appearance,Urine Clear (Clear); Bilirubin,Urine Negative (Negative); Blood,Urine Negative (Negative); Color,Urine Yellow; Glucose,Urine (UA) Negative (Negative); Ketones,Urine Negative (Negative); Leukocyte Esterase,Urine Negative (Negative); Mucus,Urine Many /hpf; Nitrite,Urine Negative (Negative); Protein,Urine 1+ (Negative); Squamous Epithelial Cell,Urine <1 /hpf (0-4); Urobilinogen,Urine <2.0 mg/dL (<2.0)
[2018-07-25 09:58] LABS: Albumin 4.3 g/dL (3.5-5.0); Calcium 9.4 mg/dL (8.4-10.2); Potassium 4.1 mmol/L (3.5-5.1); Total Bilirubin 0.8 mg/dL (0.2-1.3); Total Protein 7.4 g/dL (6.3-8.2)
--- NOTE | 2018-07-25 10:31 | ED ---
Abdominal Pain HPI - General Chief Complaint: Abdominal Pain Stated Complaint: diarrhea, abd pain Time Seen by Provider: 07/25/18 08:56 Source: patient Mode of arrival: ambulatory Limitations: no limitations - History of Present Illness Initial Comments: Patient is a 33-year-old male complaining of lower abdominal pain and diarrhea 2 days. Patient admits to eating at a local restaurants and that his girlfriend also has diarrhea. Denies abdominal surgeries in the past. Denies fever, chills, nausea, vomiting. Describes pain as sharp and pressure and is worse with eating. Patient denies any other complaints at this time. - Related Data Previous Rx's Medication Instructions Recorded ARIPiprazole IM [Abilify Maintena] 400 mg IM ONCE vial 05/17/18 ARIPiprazole [Abilify Maintena] 400 mg IM Q28D 28 Days #1 suser.syr 05/17/18 ARIPiprazole [Abilify] 7.5 mg PO DAILY 30 Days #45 tab 05/17/18 lamoTRIgine [LaMICtal] 50 mg PO DAILY 30 Days #60 tab 05/17/18 Allergies Allergy/AdvReac Type Severity Reaction Status Date / Time No Known Allergies Allergy Verified 07/25/18 08:51 Review of Systems ROS Statement: Those systems with pertinent positive or pertinent negative responses have been documented in the HPI. ROS Other: All systems not noted in ROS Statement are negative. Past Medical History Past Medical History: No Reported History Additional Past Medical History / Comment(s): "emotionally impaired" chronic back pain History of Any Multi-Drug Resistant Organisms: None Reported Past Surgical History: Orthopedic Surgery Additional Past Surgical History / Comment(s): ORIF left arm, nasal surgery due to fracture, left jaw, bilateral cataract removal and intraocular lens implants. Past Anesthesia/Blood Transfusion Reactions: No Reported Reaction Past Psychological History: ADD/ADHD, Anxiety, Bipolar, Depression Smoking Status: Current every day smoker Past Alcohol Use History: None Reported Past Drug Use History: None Reported - Past Family History Father Additional Family Medical History / Comment(s): Father is alive at age 59 with history of hypertension. Mother Additional Family Medical History / Comment(s): Mother is alive at age 61 with history of coronary artery disease status post CABG, CVA. Brother(s) Additional Family Medical History / Comment(s): Patient has 2 brothers and one has problems with kidney stones. Patient has 1 sister with no major medical problems. Patient has 1 daughter that is having problems with her heart. General Exam - General Exam Comments Initial Comments: GENERAL: Well-appearing, well-nourished and in no acute distress. HEAD: Atraumatic, normocephalic. EYES: Pupils equal round and reactive to light, extraocular movements intact, sclera anicteric, conjunctiva are normal. ENT: TMs normal, nares patent, oropharynx clear without exudates. Moist mucous membranes. NECK: Normal range of motion, supple without lymphadenopathy or JVD. LUNGS: Breath sounds clear to auscultation bilaterally and equal. No wheezes rales or rhonchi. HEART: Regular rate and rhythm without murmurs, rubs or gallops. ABDOMEN: Soft, mildly tender over left lower quadrant and suprapubic area. normoactive bowel sounds. No guarding, no rebound. No masses appreciated. : Deferred EXTREMITIES: Normal range of motion, no pitting or edema. No clubbing or cyanosis. NEUROLOGICAL: Cranial nerves II through XII grossly intact. Normal speech, normal gait. PSYCH: Normal mood, normal affect. SKIN: Warm, Dry, normal turgor, no rashes or lesions noted. Limitations: no limitations Course Vital Signs 07/25/18 07/25/18 08:49 10:37 Temperature 98.3 F 98 F Pulse Rate 101 H 98 Respiratory 18 16 Rate Blood Pressure 122/72 134/70 O2 Sat by Pulse 100 98 Oximetry Medical Decision Making - Medical Decision Making Patient is a 33-year-old male presenting with lower left abdominal pain and diarrhea 2 days. Patient's girlfriend also has diarrhea. Exam reveals mild tenderness in the left lower quadrant. KUB, UA, CBC, CMP are all within normal limits. Patient's symptoms improved with fluids and Toradol. Most likely gastroenteritis. Patient discharged home. - Lab Data Result diagrams: 07/25/18 09:19 07/25/18 09:19 Lab Results 07/25/18 07/25/18 07/25/18 Range/Units 09:19 09:19 09:19 WBC 7.6 (3.8-10.6) k/uL RBC 5.37 (4.30-5.90) m/uL Hgb 15.1 (13.0-17.5) gm/dL Hct 45.9 (39.0-53.0) % MCV 85.6 (80.0-100.0) fL MCH 28.2 (25.0-35.0) pg MCHC 33.0 (31.0-37.0) g/dL RDW 14.5 (11.5-15.5) % Plt Count 208 (150-450) k/uL Neutrophils % 63 % Lymphocytes % 26 % Monocytes % 6 % Eosinophils % 3 % Basophils % 1 % Neutrophils # 4.8 (1.3-7.7) k/uL Lymphocytes # 2.0 (1.0-4.8) k/uL Monocytes # 0.4 (0-1.0) k/uL Eosinophils # 0.2 (0-0.7) k/uL Basophils # 0.0 (0-0.2) k/uL Sodium 140 (137-145) mmol/L Potassium 4.1 (3.5-5.1) mmol/L Chloride 108 H (98-107) mmol/L Carbon Dioxide 26 (22-30) mmol/L Anion Gap 6 mmol/L BUN 14 (9-20) mg/dL Creatinine 1.48 H (0.66-1.25) mg/dL Est GFR (CKD-EPI)AfAm 71 (>60 ml/min/1.73 sqM) Est GFR (CKD-EPI)NonAf 61 (>60 ml/min/1.73 sqM) Glucose 100 H (74-99) mg/dL Calcium 9.4 (8.4-10.2) mg/dL Total Bilirubin 0.8 (0.2-1.3) mg/dL AST 28 (17-59) U/L ALT 33 (21-72) U/L Alkaline Phosphatase 86 (38-126) U/L Total Protein 7.4 (6.3-8.2) g/dL Albumin 4.3 (3.5-5.0) g/dL Urine Color Yellow Urine Appearance Clear (Clear) Urine pH 6.0 (5.0-8.0) Ur Specific [place] 1.040 H (1.001-1.035) Urine Protein 1+ H (Negative) Urine Glucose (UA) Negative (Negative) Urine Ketones Negative (Negative) Urine Blood Negative (Negative) Urine Nitrite Negative (Negative) Urine Bilirubin Negative (Negative) Urine Urobilinogen <2.0 (<2.0) mg/dL Ur Leukocyte Esterase Negative (Negative) Urine WBC 1 (0-5) /hpf Ur Squamous Epith Cells <1 (0-4) /hpf Urine Mucus Many H (None) /hpf Disposition Clinical Impression: Gastroenteritis Disposition: HOME SELF-CARE Condition: Stable Instructions (If sedation given, give patient instructions): Gastroenteritis (ED) Additional Instructions: Please return to the Emergency Department if symptoms worsen or any other concerns. Is patient prescribed a controlled substance at d/c from ED?: No Referrals: None,Stated [Primary Care Provider] - 1-2 days
[2018-07-25 10:38] VITALS: BP 134/70; PULSE 98; RESP 16; TEMP 98
== END 2018-07-25 10:37 | disposition home or self-care (01) ==
LOC: EC 08:48
DX: K52.9 Noninfective gastroenteritis and colitis, unspecified (principal); F17.200 Nicotine dependence, unspecified, uncomplicated
CPT/HCPCS: 36415; 80053; 85025; 81001; 74018; 99284; 96374; 96361; J1885

== ENCOUNTER 2018-08-30 18:10 | Emergency (ER) | payer OTHER ==
[2018-08-30 18:26] VITALS: RESP 18
--- NOTE | 2018-08-30 19:32 | ED ---
Psych HPI - General Chief Complaint: Psychiatric Symptoms Stated Complaint: EPS eval Time Seen by Provider: 08/30/18 18:17 Source: patient Mode of arrival: ambulatory - History of Present Illness Initial Comments: 33-year-old male patient presents to the emergency department today for evaluation of suicidal ideation. Patient's plan is to take his bottle of norco in an attempt to kill himself. Patient states that he has had previous suicide attempt by cutting his wrist. Patient states he is currently under [facility]. Patient states he has been receiving his antidepressant injections as scheduled. He denies any hallucinations. He denies any extensive use of alcohol or street drugs. Denies any homicidal ideation. Denies any current physical symptoms or concerns.Patient denies any recent rash, fever, chills, shortness breath, chest pain, abdominal pain, nausea, vomiting, diarrhea, constipation, back pain, numbness, tingling, dizziness, weakness, hematuria, dysuria, urinary urgency, urinary frequency, headache, visual changes, or any other complaints. - Related Data Previous Rx's Medication Instructions Recorded ARIPiprazole [Abilify Maintena] 400 mg IM Q28D 28 Days #1 suser.syr 05/17/18 ARIPiprazole [Abilify] 7.5 mg PO DAILY 30 Days #45 tab 05/17/18 lamoTRIgine [LaMICtal] 50 mg PO DAILY 30 Days #60 tab 05/17/18 Allergies Allergy/AdvReac Type Severity Reaction Status Date / Time No Known Allergies Allergy Verified 08/30/18 19:37 Review of Systems ROS Statement: Those systems with pertinent positive or pertinent negative responses have been documented in the HPI. ROS Other: All systems not noted in ROS Statement are negative. Past Medical History Past Medical History: No Reported History Additional Past Medical History / Comment(s): "emotionally impaired" chronic back pain History of Any Multi-Drug Resistant Organisms: None Reported Past Surgical History: Orthopedic Surgery Additional Past Surgical History / Comment(s): ORIF left arm, nasal surgery due to fracture, left jaw, bilateral cataract removal and intraocular lens implants. Past Anesthesia/Blood Transfusion Reactions: No Reported Reaction Past Psychological History: ADD/ADHD, Anxiety, Bipolar, Depression Smoking Status: Current every day smoker Past Alcohol Use History: None Reported Past Drug Use History: None Reported - Past Family History Father Additional Family Medical History / Comment(s): Father is alive at age 59 with history of hypertension. Mother Additional Family Medical History / Comment(s): Mother is alive at age 61 with history of coronary artery disease status post CABG, CVA. Brother(s) Additional Family Medical History / Comment(s): Patient has 2 brothers and one has problems with kidney stones. Patient has 1 sister with no major medical problems. Patient has 1 daughter that is having problems with her heart. General Exam Limitations: no limitations General appearance: alert, in no apparent distress, other (Physical well- developed, well-nourished adult male patient in no acute distress. Vital signs upon presentation are temperature 98.7, pulse 87, respirations 18, blood pressure 136/89, pulse ox 97% on room air.) Eye exam: Present: normal appearance, PERRL, EOMI. Absent: scleral icterus, conjunctival injection, periorbital swelling ENT exam: Present: normal exam, normal oropharynx, mucous membranes moist Respiratory exam: Present: normal lung sounds bilaterally. Absent: respiratory distress, wheezes, rales, rhonchi, stridor Cardiovascular Exam: Present: regular rate, normal rhythm, normal heart sounds. Absent: systolic murmur, diastolic murmur, rubs, gallop, clicks GI/Abdominal exam: Present: soft, normal bowel sounds. Absent: distended, tenderness, guarding, rebound, rigid Neurological exam: Present: alert, oriented X3, CN II-XII intact Psychiatric exam: Present: depressed Skin exam: Present: warm, dry, intact, normal color. Absent: rash Course Vital Signs 08/30/18 18:16 Temperature 98.7 F Pulse Rate 87 Respiratory 18 Rate Blood Pressure 136/89 O2 Sat by Pulse 97 Oximetry Medical Decision Making - Medical Decision Making 33-year-old male patient presented to the emergency department today for evaluation of suicidal ideation and depression. Physical examination is unremarkable. He had no physical concerns or symptoms. Patient was seen and evaluated by emergency psychiatric services. Case was discussed with the on- call psychiatrist. It is felt the patient will be safely discharged home. He will be staying with his mother who is able to monitor the patient. He is instructed to follow-up with [facility] for recheck this as possible. Return parameters were discussed in detail. He verbalizes understanding and agrees with this plan. Disposition Clinical Impression: Depression Disposition: HOME SELF-CARE Condition: Good Instructions (If sedation given, give patient instructions): Depression (ED), S uicide Prevention (ED) Additional Instructions: Follow-up with your counselor for recheck as soon as possible. Take medications as directed. Return to the emergency department immediately for any new, worsening, or concerning symptoms per Is patient prescribed a controlled substance at d/c from ED?: No Referrals: None,Stated [Primary Care Provider] - 1-2 days Time of Disposition: 19:32
[2018-08-30 19:45] VITALS: BP 141/77; PULSE 64; TEMP 99
== END 2018-08-30 19:45 | disposition home or self-care (01) ==
LOC: EC 18:10
DX: F32.9 Major depressive disorder, single episode, unspecified (principal); R45.851 Suicidal ideations; F17.200 Nicotine dependence, unspecified, uncomplicated
CPT/HCPCS: 82075; 99285

== ENCOUNTER 2018-09-02 12:43 | Inpatient (IN) | payer MEDICAID, OTHER ==
[2018-09-02 13:33] LABS: Cocaine Screen,Urine Detected (NotDetected); Opiate Screen,Urine Not Detected (NotDetected); Phencyclidine Screen,Urine Not Detected (NotDetected); Urn Cannabinoid Scrn Detected (NotDetected)
[2018-09-02 13:34] LABS: Amphetamine Screen,Urine Not Detected (NotDetected); Barbiturate Screen,Urine Not Detected (NotDetected); Benzodiazepines Screen,Urine Not Detected (NotDetected); Methadone Screen, Urine Not Detected (NotDetected); Oxycodone Screen, Urine Not Detected (NotDetected); Tricyclic Antidepressant,Urine Not Detected (NotDetected)
--- NOTE | 2018-09-02 13:34 | ED ---
Psych HPI - General Chief Complaint: Psychiatric Symptoms Stated Complaint: Mental health Time Seen by Provider: 09/02/18 12:49 Source: patient, RN notes reviewed Mode of arrival: ambulatory Limitations: no limitations - History of Present Illness Initial Comments: This a 33-year-old male presents emergency Department chief complaint depression, suicidal ideation. Patient states that this has been worse over the last 1 week. Patient has had thoughts of hurting himself but has not attempted to hurt himself. Denies any alcohol abuse she does use marijuana no other illicit drug use. Patient states that he has counseling and medications but is not helping. Patient has no physical complaints. - Related Data Previous Rx's Medication Instructions Recorded ARIPiprazole [Abilify Maintena] 400 mg IM Q28D 28 Days #1 suser.syr 05/17/18 ARIPiprazole [Abilify] 7.5 mg PO DAILY 30 Days #45 tab 05/17/18 lamoTRIgine [LaMICtal] 50 mg PO DAILY 30 Days #60 tab 05/17/18 Allergies Allergy/AdvReac Type Severity Reaction Status Date / Time No Known Allergies Allergy Verified 09/02/18 13:27 Review of Systems ROS Statement: Those systems with pertinent positive or pertinent negative responses have been documented in the HPI. ROS Other: All systems not noted in ROS Statement are negative. Past Medical History Past Medical History: No Reported History Additional Past Medical History / Comment(s): "emotionally impaired" chronic back pain History of Any Multi-Drug Resistant Organisms: None Reported Past Surgical History: Orthopedic Surgery Additional Past Surgical History / Comment(s): ORIF left arm, nasal surgery due to fracture, left jaw, bilateral cataract removal and intraocular lens implants. Past Anesthesia/Blood Transfusion Reactions: No Reported Reaction Past Psychological History: ADD/ADHD, Anxiety, Bipolar, Depression Smoking Status: Current every day smoker Past Alcohol Use History: None Reported Past Drug Use History: Marijuana - Past Family History Father Additional Family Medical History / Comment(s): Father is alive at age 59 with history of hypertension. Mother Additional Family Medical History / Comment(s): Mother is alive at age 61 with history of coronary artery disease status post CABG, CVA. Brother(s) Additional Family Medical History / Comment(s): Patient has 2 brothers and one has problems with kidney stones. Patient has 1 sister with no major medical problems. Patient has 1 daughter that is having problems with her heart. General Exam Limitations: no limitations General appearance: alert, in no apparent distress Head exam: Present: atraumatic, normocephalic, normal inspection Eye exam: Present: normal appearance, PERRL, EOMI. Absent: scleral icterus, conjunctival injection, periorbital swelling ENT exam: Present: normal exam, normal oropharynx, mucous membranes moist Neck exam: Present: normal inspection, full ROM. Absent: tenderness, meningismus, lymphadenopathy Respiratory exam: Present: normal lung sounds bilaterally. Absent: respiratory distress, wheezes, rales, rhonchi, stridor Cardiovascular Exam: Present: regular rate, normal rhythm, normal heart sounds. Absent: systolic murmur, diastolic murmur, rubs, gallop, clicks GI/Abdominal exam: Present: soft, normal bowel sounds. Absent: distended, tenderness, guarding, rebound, rigid Neurological exam: Present: alert, oriented X3, CN II-XII intact Psychiatric exam: Present: depressed Skin exam: Present: warm, dry, intact, normal color. Absent: rash Course Vital Signs 09/02/18 09/02/18 12:55 14:38 Temperature 98 F 97.5 F L Pulse Rate 78 72 Respiratory 19 19 Rate Blood Pressure 146/96 130/77 O2 Sat by Pulse 98 99 Oximetry Medical Decision Making - Medical Decision Making 33-year-old male presented for psychiatric evaluation by EPS case discussed with psychiatrist recommends inpatient treatment - Lab Data Lab Results 09/02/18 Range/Units 13:09 Urine Opiates Screen Not Detected (NotDetected) Ur Oxycodone Screen Not Detected (NotDetected) Urine Methadone Screen Not Detected (NotDetected) Ur Propoxyphene Screen Not Detected (NotDetected) Ur Barbiturates Screen Not Detected (NotDetected) U Tricyclic Antidepress Not Detected (NotDetected) Ur Phencyclidine Scrn Not Detected (NotDetected) Ur Amphetamines Screen Not Detected (NotDetected) U Methamphetamines Scrn Not Detected (NotDetected) U Benzodiazepines Scrn Not Detected (NotDetected) Urine Cocaine Screen Detected H (NotDetected) U Marijuana (THC) Screen Detected H (NotDetected) Disposition Clinical Impression: Depression, Suicidal ideation, Drug abuse Disposition: TRANSFER TO PSYCH HOSP/UNIT Referrals: None,Stated [Primary Care Provider] - 1-2 days
[2018-09-02] MEDS ORDERED: MAG HYDROX/AL HYDROX/SIMETH 30 ML CUP PO PRN (18:56)
[2018-09-02] MEDS ORDERED: ACETAMINOPHEN TAB 325 MG TAB PO PRN (18:56)
[2018-09-02] MEDS ORDERED: MAGNESIUM HYDROXIDE 2,400 MG/10 ML CUP PO PRN (18:56)
[2018-09-02] MEDS ORDERED: LORazepam 2 MG/ML INJ IM PRN (18:57)
--- NOTE | 2018-09-02 23:39 | P.CONS ---
History of Present Illness - Reason for Consult Consult date: 09/02/18 - History of Present Illness The patient is a 33-year-old male with a PMH of polysubstance abuse, active tobacco abuse, and prediabetes and depression who presented to the ED for depression with suicidal ideation. The patient notes that he has been having difficulty due to his social situation with being unemployed and not having enough to support his life. He reported thoughts of suicide with a plan of cutting his wrists. He otherwise denied any additional complaints including fever, chills, chest pain, short of breath, nausea, vomiting, or abdominal pain. He further denied diarrhea, headaches, or dizziness. Review of Systems Pertinent positives and negatives as discussed in HPI, a complete review of systems was performed and all other systems are negative. Past Medical History Past Medical History: No Reported History Additional Past Medical History / Comment(s): "emotionally impaired" chronic back pain History of Any Multi-Drug Resistant Organisms: None Reported Past Surgical History: Orthopedic Surgery Additional Past Surgical History / Comment(s): ORIF left arm, nasal surgery due to fracture, left jaw, bilateral cataract removal and intraocular lens implants. Past Anesthesia/Blood Transfusion Reactions: No Reported Reaction Past Psychological History: ADD/ADHD, Anxiety, Bipolar, Depression Smoking Status: Current every day smoker Past Alcohol Use History: None Reported Past Drug Use History: Marijuana - Past Family History Father Additional Family Medical History / Comment(s): Father is alive at age 59 with history of hypertension. Mother Additional Family Medical History / Comment(s): Mother is alive at age 61 with history of coronary artery disease status post CABG, CVA. Brother(s) Additional Family Medical History / Comment(s): Patient has 2 brothers and one has problems with kidney stones. Patient has 1 sister with no major medical problems. Patient has 1 daughter that is having problems with her heart. Medications and Allergies Home Medications Medication Instructions Recorded Confirmed Type ARIPiprazole [Abilify Maintena] 400 mg IM Q28D 28 Days #1 suser.syr 05/17/18 09/02/18 Rx ARIPiprazole [Abilify] 7.5 mg PO DAILY 30 Days #45 tab 05/17/18 09/02/18 Rx lamoTRIgine [LaMICtal] 50 mg PO DAILY 30 Days #60 tab 05/17/18 09/02/18 Rx Allergies Allergy/AdvReac Type Severity Reaction Status Date / Time No Known Allergies Allergy Verified 09/02/18 13:27 Physical Exam Vitals: Vital Signs Temp Pulse Pulse Resp BP BP Pulse Ox 09/02/18 19:28 97.7 F 76 18 128/68 09/02/18 18:33 98 F 83 18 128/66 99 09/02/18 14:38 97.5 F L 72 19 130/77 99 09/02/18 12:55 98 F 78 19 146/96 98 Intake and Output 09/02/18 09/02/18 09/03/18 14:59 22:59 06:59 Other: Weight 136.078 kg General: non toxic, no distress, appears at stated age, morbidly obese Derm: no unusual rashes/lesions no unusual ecchymoses, warm, dry Head: atraumatic, normocephalic, symmetric Eyes: EOMI, no lid lag, anicteric sclera, pupils equal round reactive to light ENT: Nose and ears atraumatic, no thrush, no pharyngeal erythema Neck: No thyromegaly, no cervical lymphadenopathy, trachea midline, supple Mouth: no lip lesion, mucus membranes moist Cardiovascular: S1S2 reg, no murmur, positive posterior tibial pulse bilateral, no edema, capillary refill less than 2 seconds Lungs: CTA bilateral, no rhonchi, no rales , no accessory muscle use Abdominal: soft, nontender to palpation, no guarding, no appreciable organomegaly, normal bowel sounds Ext: no gross muscle atrophy, muscle strength 5 out of 5 in all 4 extremities grossly, no contractures, Neuro: CN II-XI grossly intact, light touch intact all 4 extremities, finger to nose within normal limits, Psych: Alert, oriented, flat affect Results Labs: Abnormal Lab Results - Last 24 Hours (Table) 09/02/18 Range/Units 13:09 Urine Cocaine Screen Detected H (NotDetected) U Marijuana (THC) Screen Detected H (NotDetected) Assessment and Plan Plan: Cocaine and marijuana abuse -Advised patient on importance of cessation Tobacco abuse -Advised patient on importance of cessation -Nicotine patch as needed Prediabetes and morbid obesity -Advised patient's on lifestyle modification and importance of outpatient follow-up and establishment of a primary care provider Depression and suicidal ideation -As per psychiatry
[2018-09-03 08:48] LABS: Basophils # (A) 0.1 k/uL (0-0.2); Basophils % (A) 1 %; Eosinophils # (A) 0.3 k/uL (0-0.7); Eosinophils % (A) 4 %; HGB 15.6 gm/dL (13.0-17.5); Lymphocytes # (A) 2.2 k/uL (1.0-4.8); Lymphocytes % (A) 27 %; MCH 28.5 pg (25.0-35.0); MCHC 32.5 g/dL (31.0-37.0); MCV 87.8 fL (80.0-100.0); Mean Platelet Volume 6.6; Monocytes # (A) 0.4 k/uL (0-1.0); Monocytes % (A) 5 %; Neutrophils % (A) 61 %; Platelet Count 227 k/uL (150-450); RBC 5.47 m/uL (4.30-5.90); RDW 13.2 % (11.5-15.5); WBC 8.2 k/uL (3.8-10.6)
[2018-09-03] MEDS: LORazepam 1 MG TAB PO PRN ×2 (09:01→17:00)
[2018-09-03 09:08] LABS: ALT 27 U/L (21-72); AST 22 U/L (17-59); African American GFR (CKD) >90 (>60 ml/min/1.73 sqM); Alkaline Phosphatase 71 U/L (38-126); Anion Gap 9 mmol/L; Blood Urea Nitrogen 15 mg/dL (9-20); Calcium 9.3 mg/dL (8.4-10.2); Carbon Dioxide 23 mmol/L (22-30); Chloride 106 mmol/L (98-107); Cholesterol 161 mg/dL (<200); Glucose 123 mg/dL (74-99); HDL Cholesterol 37 mg/dL (40-60); LDL Cholesterol,Calculated 89 mg/dL (0-99); Potassium 4.2 mmol/L (3.5-5.1); Sodium 138 mmol/L (137-145); Total Bilirubin 0.8 mg/dL (0.2-1.3); Triglycerides 175 mg/dL (<150)
[2018-09-03] MEDS: ESCITALOPRAM 5 MG TAB PO SCH (10:51)
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
[2018-09-03] MEDS: hydrOXYzine PAMOATE 25 MG CAP PO PRN (16:01)
[2018-09-03] MEDS: NICOTINE 14MG/24HR PATCH TRANSDERM SCH (17:00)
[2018-09-03 18:07] LABS: Hemoglobin A1C 5.7 % (4.0-6.0)
[2018-09-04 05:49] VITALS: TEMP 97.9
[2018-09-04] MEDS: ESCITALOPRAM 5 MG TAB PO SCH (08:41)
[2018-09-04] MEDS: NICOTINE 14MG/24HR PATCH TRANSDERM SCH (08:41)
[2018-09-04] MEDS: LORazepam 1 MG TAB PO PRN ×2 (10:39→17:26)
--- NOTE | 2018-09-04 13:33 | P.PN ---
Progress Note - Text Progress Note Date: 09/04/18 Interval History: Patient is a 33-year-old male who was seen today and he reports that he really wants to find a job and has been applying for jobs but has been unable to find any work. He states that he still has some suicidal thoughts but no plans or intent to act states that he still feeling sad at times and depressed. He states that he felt good when he woke up but his sadness is increased as the day has gone on. Patient reports that his financial concerns are his biggest worry at this time. Mental Status: Appearance/Attitude: Patient was neatly dressed, made eye contact and was cooperative Behavior: Patient did not display any psychomotor agitation or retardation Speech/Language: Speech was spontaneous and normal volume and rhythm and he is coherent Thought Process: Patient was goal-directed there was no evidence of loose association or flight of ideas Thought Content: Patient denied any auditory or visual hallucinations and no delusions or paranoid ideation were elicited. Patient continues to report that he has financial concerns and states that he liked the find a job to work part- time as he has in the past. He states that he felt better when he first woke up this morning but the sadness and depression have come back but not as much as yesterday. He states that he slept fairly well last night. Suicidal/Homicidal Ideation: Patient states that he still was feeling suicidal but has no plans or intent to act and no current homicidal ideation Sensorium/Cognition: Patient is alert and oriented to person, place and time and his recent and remote memory are grossly intact. Mood/Affect: Patient's mood remains sad and his affect appropriate Insight/Judgment: Patient's insight and judgment are fair Assessment: Patient states that he felt better this morning but became sad as the day progressed stating that he still is worried about his financial situation, hopes to find a job again. Patient states that he slept fairly well. He reports that he still has some suicidal thoughts but has no plans or intent to act on them. Patient states he has no side effects from the medication. Patient states that he's been attending groups and activities. Plan: Patient will continue Lexapro 5 mg daily, he is on long-acting Abilify injectable and is not due for dose until September 25. Patient continues to require hospitalization to further stabilize his mood.
[2018-09-04] MEDS: hydrOXYzine PAMOATE 25 MG CAP PO PRN (17:25)
[2018-09-05] MEDS: hydrOXYzine PAMOATE 25 MG CAP PO PRN (03:43)
[2018-09-05 07:15] VITALS: BP 125/58; PULSE 79; RESP 18
[2018-09-05] MEDS: ESCITALOPRAM 5 MG TAB PO SCH (08:35)
[2018-09-05] MEDS: NICOTINE 14MG/24HR PATCH TRANSDERM SCH (08:35)
--- NOTE | 2018-09-05 14:39 | P.DS ---
Providers Date of admission: 09/02/18 18:41 Expected date of discharge: 09/05/18 Attending physician: Linda Andres MD Consults: 09/02/18 18:56 Consult Physician Routine Consulting Provider: Roshan Beasley Consult Reason/Comments: H&P and medical Do you want consulting provider notified?: Yes Primary care physician: Stated None Hospital Course: Discharge Diagnosis: Bipolar disorder type I current episode depressed, moderate severity; cannabis use disorder, moderate; cocaine use disorder mild Reason for Admission: Patient is a 33-year-old male who presented to the emergency room reporting suicidal thoughts with a plan to cut himself. Patient states that he has continued on his Abilify 400 mg injectable last receiving it on August 28. He states that he never took the Lamictal or Abilify orally that was prescribed and started here in April. Patient states that he was having nightmares and stopped it due to side effects. Patient states that he's been stressed due to finances he doesn't have enough money as well as his daughter who is 8 years of age they don't have a good relationship and she states that she doesn't love him and isn't affectionate with him. Patient states he had a plan to cut his wrists with a knife and so came to the hospital. Patient states that he continues to use marijuana on a daily basis and cocaine at least once a week. Patient states that he has not been sleeping well and is up watching TV at night, feeling depressed and tired with no energy and not caring for his activities of daily living. Patient states he's been staying in bed. Patient states he last saw a psychiatrist at [facility] a month ago. Patient states the symptoms began when he was 18 or 21 years of age and he is able to endorse a history of manic episodes in the past as well as depressive episodes. Patient has been treated with numerous psychotropic medication for his bipolar disorder. He was most recently admitted here in April 2018 and was begun on oral Abilify and Lamictal and continued on long-acting injectable Abilify. Patient is currently endorsing symptoms of depression with suicidal thoughts had a plan to cut himself with a knife, is not sleeping well and feeling tired, states that he has no energy and hasn't been taking care of things around his house or his personal hygiene. He states that he spends most of his time in bed watching television. States that he is withdrawn staying in his apartment and hasn't been cleaning his apartment. Patient states that he has been taking the injectable Abilify but has not been taking the oral Lamictal or oral Abilify. Mental status on Admission: Appearance/Attitude: Patient is dressed in a hospital gown, makes eye contact and was cooperative. Behavior: Patient does not display any psychomotor agitation or retardation. Speech/Language: Patient's speech is spontaneous of normal volume and rhythm and he is coherent Thought Process: Patient is goal-directed there is no evidence of loose association or flight of ideas Thought Content: Patient denies any auditory or visual hallucinations and no delusions or paranoid ideation are elicited. Patient states that he has not been sleeping well, has been spending most of his time in his apartment and hasn't been caring for his activities of daily living. He states he's feeling depressed about his finances and the fact that his daughter isn't very affectionate with him. Patient states that he's been spending most of his time watching TV. He states that his appetite has been good. Patient states he hasn't been taking the Lamictal or oral Abilify because it caused night terrors. Suicidal/Homicidal Ideation: Patient states he is not currently suicidal but had suicidal thoughts with a plan to cut himself yesterday and denies any current homicidal ideation Sensorium/Cognition: Patient is alert and oriented to person, place, and time and his recent and remote memory are grossly intact. Mood/Affect: Patient's mood is depressed and his affect is appropriate to his mood Insight/Judgment: Patient's insight and judgment are fair Hospital Course: Patient was admitted on a voluntary basis, placed on routine observation and group and activity therapy were ordered. Patient also had routine laboratory studies ordered as well as a medical consultation. Patient had not been taking the oral Abilify and Lamictal limited been added during his admission here in April of this year. Patient states that he had been feeling depressed, worried about his finances as well as his relationship with his daughter. Patient had suicidal thoughts as an outpatient and had plans to cut himself. Patient and I discussed starting Lexapro which we had used on his admission last year and started at 5 mg daily. Patient reported that he was sleeping better, was no longer ruminating and worrying about his finances and his daughter. Patient and I also discussed his use of marijuana and cocaine as causing him to feel depressed. Patient has been compliant with his long-acting injectable Abilify 400 mg last given on August 28. Patient had no psychotic symptoms at this time. Patient also had no manic symptoms. Patient improved with the Lexapro, stated he was no longer having any suicidal thoughts, stated he was no longer worrying about his daughter and their relationship about his finances and stated he was here to be discharged so he can look for a job. Patient was agreeable with the plan for discharge. Allergies No Known Allergies Allergy (Verified 09/02/18 13:27) Laboratory Last Values WBC 8.2 k/uL (3.8-10.6) 09/03/18 08:36 RBC 5.47 m/uL (4.30-5.90) 09/03/18 08:36 Hgb 15.6 gm/dL (13.0-17.5) 09/03/18 08:36 Hct 48.0 % (39.0-53.0) 09/03/18 08:36 MCV 87.8 fL (80.0-100.0) 09/03/18 08:36 MCH 28.5 pg (25.0-35.0) 09/03/18 08:36 MCHC 32.5 g/dL (31.0-37.0) 09/03/18 08:36 RDW 13.2 % (11.5-15.5) 09/03/18 08:36 Plt Count 227 k/uL (150-450) 09/03/18 08:36 Neutrophils % 61 % 09/03/18 08:36 Lymphocytes % 27 % 09/03/18 08:36 Monocytes % 5 % 09/03/18 08:36 Eosinophils % 4 % 09/03/18 08:36 Basophils % 1 % 09/03/18 08:36 Neutrophils # 5.0 k/uL (1.3-7.7) 09/03/18 08:36 Lymphocytes # 2.2 k/uL (1.0-4.8) 09/03/18 08:36 Monocytes # 0.4 k/uL (0-1.0) 09/03/18 08:36 Eosinophils # 0.3 k/uL (0-0.7) 09/03/18 08:36 Basophils # 0.1 k/uL (0-0.2) 09/03/18 08:36 Sodium 138 mmol/L (137-145) 09/03/18 08:36 Potassium 4.2 mmol/L (3.5-5.1) 09/03/18 08:36 Chloride 106 mmol/L (98-107) 09/03/18 08:36 Carbon Dioxide 23 mmol/L (22-30) 09/03/18 08:36 Anion Gap 9 mmol/L 09/03/18 08:36 BUN 15 mg/dL (9-20) 09/03/18 08:36 Creatinine 1.19 mg/dL (0.66-1.25) 09/03/18 08:36 Est GFR (CKD-EPI)AfAm >90 (>60 ml/min/1.73 sqM) 09/03/18 08:36 Est GFR (CKD-EPI)NonAf 79 (>60 ml/min/1.73 sqM) 09/03/18 08:36 Glucose 123 mg/dL (74-99) H 09/03/18 08:[address] Glu mg/dL 117 09/03/18 08:36 Hemoglobin A1c 5.7 % (4.0-6.0) 09/03/18 08:36 Calcium 9.3 mg/dL (8.4-10.2) 09/03/18 08:36 Total Bilirubin 0.8 mg/dL (0.2-1.3) 09/03/18 08:36 AST 22 U/L (17-59) 09/03/18 08:36 ALT 27 U/L (21-72) 09/03/18 08:36 Alkaline Phosphatase 71 U/L (38-126) 09/03/18 08:36 Total Protein 7.0 g/dL (6.3-8.2) 09/03/18 08:36 Albumin 4.0 g/dL (3.5-5.0) 09/03/18 08:36 Triglycerides 175 mg/dL (<150) H 09/03/18 08:36 Cholesterol 161 mg/dL (<200) 09/03/18 08:36 LDL Cholesterol, Calc 89 mg/dL (0-99) 09/03/18 08:36 HDL Cholesterol 37 mg/dL (40-60) L 09/03/18 08:36 TSH 1.130 mIU/L (0.465-4.680) 09/03/18 08:36 Urine Opiates Screen Not Detected (NotDetected) 09/02/18 13:09 Ur Oxycodone Screen Not Detected (NotDetected) 09/02/18 13:09 Urine Methadone Screen Not Detected (NotDetected) 09/02/18 13:09 Ur Propoxyphene Screen Not Detected (NotDetected) 09/02/18 13:09 Ur Barbiturates Screen Not Detected (NotDetected) 09/02/18 13:09 U Tricyclic Antidepress Not Detected (NotDetected) 09/02/18 13:09 Ur Phencyclidine Scrn Not Detected (NotDetected) 09/02/18 13:09 Ur Amphetamines Screen Not Detected (NotDetected) 09/02/18 13:09 U Methamphetamines Scrn Not Detected (NotDetected) 09/02/18 13:09 U Benzodiazepines Scrn Not Detected (NotDetected) 09/02/18 13:09 Urine Cocaine Screen Detected (NotDetected) H 09/02/18 13:09 U Marijuana (THC) Screen Detected (NotDetected) H 09/02/18 13:09 Discharge Mental Status: Appearance/Attitude: Patient was neatly dressed, makes eye contact and is cooperative. Behavior: Patient does not display any psychomotor agitation or retardation. Speech/Language: patient's speech is spontaneous of normal volume and rhythm and he is coherent. Thought Process: patient is goal-directed there is no evidence of loose assoc iation or flight of ideas Thought Content: patient denies any auditory or visual hallucinations and no delusions or paranoid ideation or elicited. Patient states that he is no longer feeling as depressed, he is not worrying about his finances and is not worrying about his relationship with his daughter. Patient states that he see her to be discharged so that he can look for work. Patient states he is eating and sleeping well. Suicidal/Homicidal Ideation: patient denies any current suicidal or homicidal ideation Sensorium/Cognition: patient is alert and oriented to person, place, and time and his recent and remote memory are grossly intact. Mood/Affect: patient's mood is pleasant and his affect is appropriate Insight/Judgment: patient insight and judgment are fair Risk Assessment: patient's risk for readmission is moderate should he continue to use drugs and/or alcohol Discharge Plan: Patient return to his apartment, will continue on Abilify long- acting injectable 400 mg daily due on September 25, patient will also continue on Lexapro 5 mg in the morning and patient will be given prescriptions for these medications. Patient will continue to follow up at [facility] and was advised to be compliant with medication and outpatient appointments. Patient was also advised to avoid all alcohol and drugs and discuss outpatient alcohol/substance use rehab programs at [facility]. Patient Condition at Discharge: Stable Plan - Discharge Summary New Discharge Prescriptions: New Escitalopram [Lexapro] 5 mg PO DAILY #14 tab Continue ARIPiprazole [Abilify Maintena] 400 mg IM Q28D 28 Days #1 [email or web address].[email or web address] Discontinued ARIPiprazole [Abilify] 7.5 mg PO DAILY 30 Days #45 tab lamoTRIgine [LaMICtal] 50 mg PO DAILY 30 Days #60 tab Discharge Medication List ARIPiprazole [Abilify Maintena] 400 mg IM Q28D 28 Days #1 [email or web address].[email or web address] 09/05/18 [Rx] Escitalopram [Lexapro] 5 mg PO DAILY #14 tab 09/05/18 [Rx] Follow up Appointment(s)/Referral(s): [facility] [Outside] - 09/10/18 9:00 am (09-10-18 @ 9:00 with Rachael Padilla 09-11-18 @ 2:[address] Davenport) [facility] [NON-STAFF] - 1 Week Patient Instructions/Handouts: How to Stop Smoking (GEN), Cocaine Abuse (DC), Depression (DC), Cannabis Abuse (DC), Help Prevent Suicide (DC), Suicide Prevention (DC) Activity/Diet/Wound Care/Special Instructions: Keep your follow up appointments as scheduled. Continue medications as prescribed. No alcohol or street drugs not prescribed by your physician. When you need refill of your medications contact your out patient psychiatrist or primary care physician. No access to guns or weapons. Crisis line if needed . Discharge Disposition: HOME SELF-CARE
== END 2018-09-05 15:01 | disposition home or self-care (01) | DRG 885 ==
LOC: EC 12:43 → 3MHU 18:41
PROVIDERS: ADMIT Psychiatry & Neurology Psychiatry; ATTEND Psychiatry & Neurology Psychiatry
DX: F31.32 Bipolar disorder, current episode depressed, moderate (principal); R45.851 Suicidal ideations; Z68.42 Body mass index [BMI] 45.0-49.9, adult; E66.01 Morbid (severe) obesity due to excess calories; F14.10 Cocaine abuse, uncomplicated; F12.10 Cannabis abuse, uncomplicated; F51.4 Sleep terrors [night terrors]; T42.6X6A Underdosing of other antiepileptic and sedative-hypnotic drugs, initial encounter; T43.596A Underdosing of other antipsychotics and neuroleptics, initial encounter; Z91.128 Patient's intentional underdosing of medication regimen for other reason; F90.9 Attention-deficit hyperactivity disorder, unspecified type; G89.29 Other chronic pain; M54.9 Dorsalgia, unspecified; R73.03 Prediabetes; F41.9 Anxiety disorder, unspecified; F17.200 Nicotine dependence, unspecified, uncomplicated; Z71.6 Tobacco abuse counseling; Z79.899 Other long term (current) drug therapy; Z87.81 Personal history of (healed) traumatic fracture; Z56.0 Unemployment, unspecified; Z98.890 Other specified postprocedural states; Z98.42 Cataract extraction status, left eye; Z98.41 Cataract extraction status, right eye; Z96.1 Presence of intraocular lens; Z82.3 Family history of stroke; Z82.49 Family history of ischemic heart disease and other diseases of the circulatory system; Z84.1 Family history of disorders of kidney and ureter
CPT/HCPCS: 80053; 80061; 80306; 82075; 83036; 84443; 85025; 99285

== ENCOUNTER 2018-10-01 18:37 | Emergency (ER) | payer OTHER ==
[2018-10-01] MEDS ORDERED: SODIUM CHLORIDE 0.9% 1,000 ML IV STA (18:57)
[2018-10-01] MEDS ORDERED: KETOROLAC 30 MG/ML 1 ML VIAL IVP STA (18:58)
--- NOTE | 2018-10-01 19:05 | ED ---
Chest Pain HPI - General Chief Complaint: Chest Pain Stated Complaint: chest pain Time Seen by Provider: 10/01/18 18:49 Source: patient Mode of arrival: ambulatory Limitations: no limitations - History of Present Illness Initial Comments: 33-year-old male patient with past medical history significant for diabetes and mental health disorder presents to the emergency department today for evaluation of left-sided chest pain. Patient states he's been having the pain to his chest for the last 3 days. States the pain is intermittent, physical sharp pressure type pain. States it does radiate through to his back. Denies any nausea or vomiting. States he is short of breath at times. Patient denies any exacerbating or relieving factors with the pain. Denies any personal history of cardiac events however his mother has had a CABG procedure. Patient denies any history of cigarette smoking. Patient is also reporting left hip pain. Patient states that pain is intermittent. Patient states it is throbbing type pain. Denies any known injury. States he has been taking Avapro from for this without relief. Patient denies any recent rash, fever, chills, abdominal pain, nausea, vomiting, diarrhea, constipation, back pain, numbness, tingling, dizziness, weakness, hematuria, dysuria, urinary urgency, urinary frequency, headache, visual changes, or any other complaints. - Related Data Previous Rx's Medication Instructions Recorded ARIPiprazole [Abilify Maintena] 400 mg IM Q28D 28 Days #1 suser.[email or web address] 09/05/18 Escitalopram [Lexapro] 5 mg PO DAILY #14 tab 09/05/18 Naproxen [EC-Naprosyn] 500 mg PO BID PRN #30 tablet. 10/01/18 Allergies Allergy/AdvReac Type Severity Reaction Status Date / Time No Known Allergies Allergy Verified 10/01/18 18:44 Review of Systems ROS Statement: Those systems with pertinent positive or pertinent negative responses have been documented in the HPI. ROS Other: All systems not noted in ROS Statement are negative. EKG Findings - EKG Comments: EKG Findings:: EKG obtained at 1909 shows normal sinus rhythm with a ventricular rate of 80, MA interval 160, QRS duration 88, QT 350, QTC 403. No evidence of ST elevation or depression. Past Medical History Past Medical History: No Reported History Additional Past Medical History / Comment(s): "emotionally impaired" chronic back pain History of Any Multi-Drug Resistant Organisms: None Reported Past Surgical History: Orthopedic Surgery Additional Past Surgical History / Comment(s): ORIF left arm, nasal surgery due to fracture, left jaw, bilateral cataract removal and intraocular lens implants. Past Anesthesia/Blood Transfusion Reactions: No Reported Reaction Past Psychological History: ADD/ADHD, Anxiety, Bipolar, Depression Smoking Status: Current every day smoker Past Alcohol Use History: None Reported Past Drug Use History: Marijuana - Past Family History Father Additional Family Medical History / Comment(s): Father is alive at age 59 with history of hypertension. Mother Additional Family Medical History / Comment(s): Mother is alive at age 61 with history of coronary artery disease status post CABG, CVA. Brother(s) Additional Family Medical History / Comment(s): Patient has 2 brothers and one has problems with kidney stones. Patient has 1 sister with no major medical problems. Patient has 1 daughter that is having problems with her heart. General Exam Limitations: no limitations General appearance: alert, in no apparent distress, other (Physical well- developed, well-nourished adult male patient in no acute distress. Vital signs upon presentation are temperature 97.8F, pulse 89, respirations 16, blood pressure 126/78, pulse ox 98% on room air.) Eye exam: Present: normal appearance, PERRL, EOMI. Absent: scleral icterus, conjunctival injection, periorbital swelling ENT exam: Present: normal exam, normal oropharynx, mucous membranes moist Respiratory exam: Present: normal lung sounds bilaterally. Absent: respiratory distress, wheezes, rales, rhonchi, stridor Cardiovascular Exam: Present: regular rate, normal rhythm, normal heart sounds. Absent: systolic murmur, diastolic murmur, rubs, gallop, clicks GI/Abdominal exam: Present: soft, normal bowel sounds. Absent: distended, tenderness, guarding, rebound, rigid Extremities exam: Present: normal inspection, full ROM, normal capillary refill, other (Skin to the lower extremities is warm and dry. Cap refills less than 3 seconds. Pedal and posttibial pulses are 2+ and equal bilaterally. Full range of motion is intact. No hip tenderness.). Absent: tenderness, pedal edema, joint swelling, calf tenderness Neurological exam: Present: alert, oriented X3, CN II-XII intact Psychiatric exam: Present: normal affect, normal mood Skin exam: Present: warm, dry, intact, normal color. Absent: rash Course Vital Signs 10/01/18 10/01/18 10/01/18 18:42 19:12 20:00 Temperature 97.8 F Pulse Rate 89 79 68 Respiratory 16 18 14 Rate Blood Pressure 126/78 131/67 O2 Sat by Pulse 98 96 Oximetry 10/01/18 10/01/18 21:00 22:21 Temperature 98.2 F Pulse Rate 84 82 Respiratory 16 18 Rate Blood Pressure 108/71 112/78 O2 Sat by Pulse 97 98 Oximetry Chest Pain MDM - MDM RADIOLOGY: Two-view x-ray of the chest is obtained. Report was reviewed in its entirety. Impression by Dr. Joaquin Cherry shows no acute process. MDM: 33-year-old male patient presents to the emergency department today for evaluation of left-sided chest pain and left hip pain. Physical examination was unremarkable. Chest pain was not reproducible palpation. Abdomen soft and nontender. Lungs are clear to auscultation with good air movement. This x-ray showed no acute cardio pulmonary process. EKG showed normal sinus rhythm. Labs are unremarkable. Troponin and d-dimer negative. Patient was given IV Toradol. Upon reevaluation patient states the symptoms have improved. He is requesting work note. He'll be discharged to follow up with his primary care physician for recheck in 1-2 days. Return parameters were discussed in detail. He verbalizes understanding and agrees with this plan. Disposition Clinical Impression: Chest pain, Left hip pain Disposition: HOME SELF-CARE Condition: Good Instructions (If sedation given, give patient instructions): Chest Pain (ED), Hip Pain (ED) Additional Instructions: Take medications as directed. Follow-up with the primary care physician for recheck in 1-2 days. Return to the emergency department immediately for any new, worsening, or concerning symptoms. Prescriptions: Naproxen [EC-Naprosyn] 500 mg PO BID PRN #[address] tablet.[address] HENRY Reason: Pain Is patient prescribed a controlled substance at d/c from ED?: No Referrals: Jenni Hess MD [STAFF PHYSICIAN] - 1-2 days Time of Disposition: 21:59
[2018-10-01 19:28] LABS: Basophils # (A) 0.1 k/uL (0-0.2); Basophils % (A) 1 %; Eosinophils # (A) 0.3 k/uL (0-0.7); Eosinophils % (A) 4 %; HCT 44.3 % (39.0-53.0); Lymphocytes # (A) 2.6 k/uL (1.0-4.8); Lymphocytes % (A) 30 %; MCH 29.5 pg (25.0-35.0); MCHC 33.9 g/dL (31.0-37.0); Mean Platelet Volume 7.6; Monocytes # (A) 0.5 k/uL (0-1.0); Monocytes % (A) 5 %; Neutrophils # (A) 5.1 k/uL (1.3-7.7); Neutrophils % (A) 59 %; Platelet Count 255 k/uL (150-450); RDW 12.9 % (11.5-15.5); WBC 8.7 k/uL (3.8-10.6)
[2018-10-01 19:37] LABS: Albumin 3.9 g/dL (3.5-5.0); Calcium 9.3 mg/dL (8.4-10.2); Magnesium 2.1 mg/dL (1.6-2.3); Potassium 4.1 mmol/L (3.5-5.1); Total Bilirubin 0.4 mg/dL (0.2-1.3); Total Protein 7.2 g/dL (6.3-8.2)
[2018-10-01 19:41] LABS: D-Dimer 0.24 mg/L FEU (<0.60); INR 0.9 (<1.2); Partial Thromboplastin Time 24.5 sec (22.0-30.0); Prothrombin Time 9.7 sec (9.0-12.0)
--- NOTE | 2018-10-01 21:21 | XR ---
EXAMINATION: XR chest 2V DATE AND TIME: 10/01/2018 7:34 PM CLINICAL INDICATION: PHH; Chest Pain TECHNIQUE: Departmental protocol COMPARISON: 05/15/2016 FINDINGS: The lungs are clear. The pleural spaces are negative. The cardiac silhouette is not enlarged. The remainder of the mediastinal silhouette is unremarkable. The skeletal structures and soft tissues are negative for acute findings. IMPRESSION: NO ACUTE PROCESS.
[2018-10-01 22:22] VITALS: BP 112/78; PULSE 82; RESP 18; TEMP 98.2
== END 2018-10-01 22:21 | disposition home or self-care (01) ==
LOC: EC 18:37
DX: R07.9 Chest pain, unspecified (principal); M25.552 Pain in left hip; F17.200 Nicotine dependence, unspecified, uncomplicated
CPT/HCPCS: 36415; 93005; 85379; 80053; 83735; 84484; 85025; 85610; 85730; 71046; 99285; 96374; 96361; J1885

== ENCOUNTER 2018-12-10 09:55 | Emergency (ER) | payer OTHER ==
[2018-12-10 09:59] VITALS: BP 115/74; PULSE 108; RESP 18; TEMP 98.4
--- NOTE | 2018-12-10 11:01 | ED ---
General Adult HPI - General Chief complaint: Extremity Injury, Lower Stated complaint: RT KNEE PAIN Time Seen by Provider: 12/10/18 10:14 Source: patient Mode of arrival: ambulatory Limitations: no limitations - History of Present Illness Initial comments: Patient is a 33-year-old male presenting to emergency Department with a chief complaint of knee pain. Patient reports this has been an ongoing issue for about 2 years with a clicking sensation whenever he attempts to run, or is climbing up or downstairs. Patient reports the pain is located along the lateral suprapatellar region. Patient reports general walking does not cause any symptoms. Patient denies any swelling, skin discoloration or recent trauma to the region. Patient denies any numbness or tingling. - Related Data Previous Rx's Medication Instructions Recorded ARIPiprazole [Abilify Maintena] 400 mg IM Q28D 28 Days #1 suser.syr 09/05/18 Escitalopram [Lexapro] 5 mg PO DAILY #14 tab 09/05/18 Naproxen [EC-Naprosyn] 500 mg PO BID PRN #30 tablet. 10/01/18 Allergies Allergy/AdvReac Type Severity Reaction Status Date / Time No Known Allergies Allergy Verified 10/01/18 18:44 Review of Systems ROS Statement: Those systems with pertinent positive or pertinent negative responses have been documented in the HPI. ROS Other: All systems not noted in ROS Statement are negative. Past Medical History Past Medical History: No Reported History Additional Past Medical History / Comment(s): "emotionally impaired" chronic back pain History of Any Multi-Drug Resistant Organisms: None Reported Past Surgical History: Orthopedic Surgery Additional Past Surgical History / Comment(s): ORIF left arm, nasal surgery due to fracture, left jaw, bilateral cataract removal and intraocular lens implants. Past Anesthesia/Blood Transfusion Reactions: No Reported Reaction Past Psychological History: ADD/ADHD, Anxiety, Bipolar, Depression Smoking Status: Current every day smoker Past Alcohol Use History: None Reported Past Drug Use History: Marijuana - Past Family History Father Additional Family Medical History / Comment(s): Father is alive at age 59 with history of hypertension. Mother Additional Family Medical History / Comment(s): Mother is alive at age 61 with history of coronary artery disease status post CABG, CVA. Brother(s) Additional Family Medical History / Comment(s): Patient has 2 brothers and one has problems with kidney stones. Patient has 1 sister with no major medical problems. Patient has 1 daughter that is having problems with her heart. General Exam Limitations: no limitations General appearance: alert, in no apparent distress Head exam: Present: atraumatic, normocephalic, normal inspection Eye exam: Present: normal appearance Pupils: Present: normal accommodation Course Vital Signs 12/10/18 09:56 Temperature 98.4 F Pulse Rate 108 H Respiratory 18 Rate Blood Pressure 115/74 O2 Sat by Pulse 98 Oximetry Medical Decision Making - Medical Decision Making Patient is a 33-year-old male presenting to the emergency room with a chief complaint of chronic knee pain. This is an ongoing issue for about 2 years with a clicking sensation. Patient has negative McBurney similar suspecting a meniscal tear. X-rays indicative of a 6 mm corticated ossified density in the tibial tuberosity which could present a sequela from a previous injury or Vernon-Schlatter disease. Clinically this does not correlate to the patient's pain which is located in the lateral suprapatellar region. Advised the patient to follow-up with orthopedics for further management. May arthur advised the patient to wear knee brace to help alleviate some of the symptoms. Strict return parameters were thoroughly discussed with patient was understanding and agreeable. Case discussed physician. Disposition Clinical Impression: Right knee pain Disposition: HOME SELF-CARE Condition: Stable Instructions (If sedation given, give patient instructions): Knee Pain (ED) Additional Instructions: Please follow with orthopedics. Please return to emergency department if symptoms worsen. Please wear a knee brace to help alleviate some of her symptoms. Is patient prescribed a controlled substance at d/c from ED?: No Referrals: None,Stated [Primary Care Provider] - 1-2 days Tyler Yancey MD [STAFF PHYSICIAN] - 1-2 days Time of Disposition: 11:23
--- NOTE | 2018-12-10 11:04 | XR ---
EXAMINATION TYPE: XR knee complete RT DATE OF EXAM: 12/10/2018 COMPARISON: NONE HISTORY: 33-year-old male pain and clicking TECHNIQUE: 3 views FINDINGS: Extensor mechanism is intact. Corticated ossific density measuring 6 mm the tibial tuberosity. No acu te fracture, subluxation, dislocation. IMPRESSION: 1. A 6 mm corticated ossific density at the tibial tuberosity could represent sequela of remote injur y or sequela of prior Quincy-Schlatter's disease. 2. No acute osseous abnormality seen.
== END 2018-12-10 11:53 | disposition home or self-care (01) ==
LOC: EC 09:55
DX: M25.561 Pain in right knee (principal); M89.8X6 Other specified disorders of bone, lower leg; G89.29 Other chronic pain; F17.200 Nicotine dependence, unspecified, uncomplicated
CPT/HCPCS: 99283

== ENCOUNTER 2019-03-14 08:33 | Emergency (ER) | payer OTHER ==
[2019-03-14] MEDS ORDERED: ONDANSETRON ODT 4 MG TAB PO STA (09:10)
[2019-03-14] MEDS ORDERED: ACETAMINOPHEN TAB 500 MG TAB PO STA (09:10)
[2019-03-14] MEDS ORDERED: IBUPROFEN 600 MG STARTER PACK 4 TAB BTL PO STA (09:10)
--- NOTE | 2019-03-14 09:13 | ED ---
Abdominal Pain HPI - General Chief Complaint: Abdominal Pain Stated Complaint: chills, shakes, weakness Time Seen by Provider: 03/14/19 08:53 Source: patient, RN notes reviewed, old records reviewed Mode of arrival: ambulatory Limitations: no limitations - History of Present Illness Initial Comments: Patient is a 34-year-old male with 2 days of body aches, diarrhea, sore throat and headache. Patient reports she's had a fever as well but has not taken any Motrin Tylenol. He complains of some chills at this time. Patient has a temperature of 101.4. Patient reports he's had nausea as well but no vomiting. Denies specific abdominal pain. Patient reports history of sick contacts. - Related Data Previous Rx's Medication Instructions Recorded Ibuprofen [Motrin] 600 mg PO Q8HR PRN #20 tab 03/14/19 Allergies Allergy/AdvReac Type Severity Reaction Status Date / Time No Known Allergies Allergy Verified 03/14/19 11:16 Review of Systems ROS Statement: Those systems with pertinent positive or pertinent negative responses have been documented in the HPI. ROS Other: All systems not noted in ROS Statement are negative. Past Medical History Past Medical History: No Reported History Additional Past Medical History / Comment(s): "emotionally impaired" chronic back pain History of Any Multi-Drug Resistant Organisms: None Reported Past Surgical History: Orthopedic Surgery Additional Past Surgical History / Comment(s): ORIF left arm, nasal surgery due to fracture, left jaw, bilateral cataract removal and intraocular lens implants. Past Anesthesia/Blood Transfusion Reactions: No Reported Reaction Past Psychological History: ADD/ADHD, Anxiety, Bipolar, Depression Smoking Status: Current every day smoker Past Alcohol Use History: Occasional Past Drug Use History: Marijuana - Past Family History Father Additional Family Medical History / Comment(s): Father is alive at age 59 with history of hypertension. Mother Additional Family Medical History / Comment(s): Mother is alive at age 61 with history of coronary artery disease status post CABG, CVA. Brother(s) Additional Family Medical History / Comment(s): Patient has 2 brothers and one has problems with kidney stones. Patient has 1 sister with no major medical problems. Patient has 1 daughter that is having problems with her heart. General Exam - General Exam Comments Initial Comments: 84-year-old male. Alert and oriented 3. Limitations: no limitations General appearance: alert Head exam: Present: atraumatic, normocephalic, normal inspection Eye exam: Present: normal appearance, PERRL, EOMI. Absent: scleral icterus, conjunctival injection, periorbital swelling ENT exam: Present: normal exam, mucous membranes moist Neck exam: Present: normal inspection. Absent: tenderness, meningismus, lymphadenopathy Respiratory exam: Present: normal lung sounds bilaterally. Absent: respiratory distress, wheezes, rales, rhonchi, stridor Cardiovascular Exam: Present: regular rate, normal rhythm, normal heart sounds. Absent: systolic murmur, diastolic murmur, rubs, gallop, clicks GI/Abdominal exam: Present: soft, normal bowel sounds. Absent: distended, tenderness, guarding, rebound, rigid Extremities exam: Present: normal inspection, full ROM, normal capillary refill. Absent: tenderness, pedal edema, joint swelling, calf tenderness Back exam: Present: normal inspection Neurological exam: Present: alert, oriented X3, CN II-XII intact Psychiatric exam: Present: normal affect, normal mood Skin exam: Present: warm, dry, intact, normal color. Absent: rash Course Vital Signs 03/14/19 03/14/19 03/14/19 08:37 08:39 09:39 Temperature 99.4 F Pulse Rate 104 H 69 Respiratory 18 20 20 Rate Blood Pressure 126/74 125/72 O2 Sat by Pulse 99 Oximetry 03/14/19 03/14/19 10:39 11:07 Temperature 98.7 F Pulse Rate 73 71 Respiratory 20 20 Rate Blood Pressure 127/79 113/81 O2 Sat by Pulse 97 98 Oximetry Medical Decision Making - Medical Decision Making 34 year old male, multiple symptoms including body aches, fever, diarrhea, headache, runny nose. Symptoms for 2 days. Denies abdominal pain, on reevaluation has no tenderness. Patient influenza test is negative, however patient clinically appears to have viral syndrome. Discussed if symptoms persist to follow up with pCP. Given a note for work. - Lab Data Lab Results 03/14/19 Range/Units 09:25 Influenza Type A RNA Not Detected (Not Detectd) Influenza Type B (PCR) Not Detected (Not Detectd) Disposition Clinical Impression: Viral syndrome, Diarrhea Disposition: HOME SELF-CARE Condition: Stable Instructions (If sedation given, give patient instructions): Viral Syndrome (ED) Additional Instructions: Patient to encourage fluid intake. Taking Motrin Tylenol for pain. Follow-up with PCP. Prescriptions: Ibuprofen [Motrin] 600 mg PO Q8HR PRN #20 tab PRN Reason: Pain Is patient prescribed a controlled substance at d/c from ED?: No Referrals: None,Stated [Primary Care Provider] - 1-2 days Time of Disposition: 10:57
[2019-03-14 10:55] VITALS: RESP 20
[2019-03-14 10:59] VITALS: TEMP 98.7
[2019-03-14 11:08] VITALS: BP 113/81; PULSE 71
== END 2019-03-14 11:08 | disposition home or self-care (01) ==
LOC: EC 08:33
DX: B34.9 Viral infection, unspecified (principal); F17.200 Nicotine dependence, unspecified, uncomplicated
CPT/HCPCS: 87502; 99284

== ENCOUNTER 2019-03-17 10:57 | Emergency (ER) | payer OTHER ==
[2019-03-17 11:31] VITALS: BP 116/80; PULSE 77; RESP 20; TEMP 97.8
[2019-03-17] MEDS ORDERED: cefTRIAXone 1,000 MG VIAL (IM USE) IM STA (12:39)
[2019-03-17] MEDS ORDERED: methylPREDNISolone SOD SUCCI 125 MG/2 ML VIAL IM ONE (12:39)
--- NOTE | 2019-03-17 12:47 | ED ---
ENT HPI - General Chief complaint: ENT Stated complaint: sore throat Time Seen by Provider: 03/17/19 11:31 Source: patient, RN notes reviewed, old records reviewed Mode of arrival: ambulatory Limitations: no limitations - History of Present Illness Initial comments: Patient is a pleasant 34 year old male with sore throat and swelling of tonsil and uvula. Patient reports worsening swelling over the past 2 days. Patient was seen in ER and diagnosed with viral syndrome, as he had vomiting, fever, cough, sore throat and body aches, and diarrhea. His flu test was negative. Patient reports able to swallow, but increased pain. No further fevers, and has been dosing motrin and tylenol. Patient denies chest pain. - Related Data Previous Rx's Medication Instructions Recorded Ibuprofen [Motrin] 600 mg PO Q8HR PRN #20 tab 03/14/19 Acetaminophen Tab [Tylenol Tab] 650 mg PO Q4H #20 tablet 03/17/19 Azithromycin [Zithromax Z-pack] 0 mg PO DIRECTED #6 tab 03/17/19 Lidocaine Viscous 2% [Xylocaine 5 ml MUCOUS MEM QID #90 ml 03/17/19 Viscous] predniSONE [Deltasone] 20 mg PO BID #12 tab 03/17/19 Allergies Allergy/AdvReac Type Severity Reaction Status Date / Time No Known Allergies Allergy Verified 03/14/19 11:16 Review of Systems ROS Statement: Those systems with pertinent positive or pertinent negative responses have been documented in the HPI. ROS Other: All systems not noted in ROS Statement are negative. Past Medical History Past Medical History: No Reported History Additional Past Medical History / Comment(s): "emotionally impaired" chronic back pain History of Any Multi-Drug Resistant Organisms: None Reported Past Surgical History: Orthopedic Surgery Additional Past Surgical History / Comment(s): ORIF left arm, nasal surgery due to fracture, left jaw, bilateral cataract removal and intraocular lens implants. Past Anesthesia/Blood Transfusion Reactions: No Reported Reaction Past Psychological History: ADD/ADHD, Anxiety, Bipolar, Depression Smoking Status: Current every day smoker Past Alcohol Use History: Occasional Past Drug Use History: Marijuana - Past Family History Father Additional Family Medical History / Comment(s): Father is alive at age 59 with history of hypertension. Mother Additional Family Medical History / Comment(s): Mother is alive at age 61 with history of coronary artery disease status post CABG, CVA. Brother(s) Additional Family Medical History / Comment(s): Patient has 2 brothers and one has problems with kidney stones. Patient has 1 sister with no major medical problems. Patient has 1 daughter that is having problems with her heart. General Exam - General Exam Comments Initial Comments: 34 year old male, no acute distress. Limitations: no limitations General appearance: alert, in no apparent distress Head exam: Present: atraumatic, normocephalic, normal inspection Eye exam: Present: normal appearance, PERRL, EOMI. Absent: scleral icterus, conjunctival injection, periorbital swelling ENT exam: Present: normal exam, mucous membranes moist. Absent: other (erythemaotus oropharynx, no uvula deviation, some minor swelling of uvula. minimal exudate. ) Neck exam: Present: normal inspection, other (tonsillar and anterior cervical adenoapthy. ). Absent: tenderness, meningismus, lymphadenopathy Respiratory exam: Present: normal lung sounds bilaterally. Absent: respiratory distress, wheezes, rales, rhonchi, stridor Cardiovascular Exam: Present: regular rate, normal rhythm, normal heart sounds. Absent: systolic murmur, diastolic murmur, rubs, gallop, clicks GI/Abdominal exam: Present: soft, normal bowel sounds. Absent: distended, tenderness, guarding, rebound, rigid Back exam: Present: normal inspection Neurological exam: Present: alert, oriented X3, CN II-XII intact Psychiatric exam: Present: normal affect, normal mood Skin exam: Present: warm, dry, intact, normal color. Absent: rash Course Vital Signs 03/17/19 03/17/19 11:27 13:17 Temperature 97.8 F 97.8 F Pulse Rate 77 77 Respiratory 20 20 Rate Blood Pressure 116/80 116/80 O2 Sat by Pulse 97 97 Oximetry Medical Decision Making - Medical Decision Making 34 year old male with sore throat for 3 days. Patient has erythematous oropharynx, swelling over bilateral tonsils, minimal exudate and mininal uvula swelling. No voice changes. No evidence of tonsilar abscess or uvula deviation. Patient has some adenopathy. No fever, and able to tolerate pills and fluids. PAtient had rapid strep completed, and is negative. Discussed still viral, however will treat until culture completed. Patient given IM rocephin and IM solumedrol at this time. Given DC with steriods, magic mouthwash and azithromycin. Discussed return parameters. - Lab Data Lab Results 03/17/19 Range/Units 11:52 Group A Strep Rapid Negative (Negative) Disposition Clinical Impression: Pharyngitis Disposition: HOME SELF-CARE Condition: Good Instructions (If sedation given, give patient instructions): Uvulitis (ED) Additional Instructions: Please use medication as discussed. Please follow up with family doctor if symptoms have not improved over the next two days. Please return to the e mergency room if your symptoms increase or worsen or for any other concerns. Prescriptions: predniSONE [Deltasone] 20 mg PO BID #12 tab Acetaminophen Tab [Tylenol Tab] 650 mg PO Q4H #20 tablet Lidocaine Viscous 2% [Xylocaine Viscous] 5 ml MUCOUS MEM QID #90 ml Azithromycin [Zithromax Z-pack] 0 mg PO DIRECTED #6 tab Is patient prescribed a controlled substance at d/c from ED?: No Referrals: None,Stated [Primary Care Provider] - 1-2 days Time of Disposition: 12:41
== END 2019-03-17 13:18 | disposition home or self-care (01) ==
LOC: EC 10:57
DX: J02.8 Acute pharyngitis due to other specified organisms (principal); B97.89 Other viral agents as the cause of diseases classified elsewhere; F17.200 Nicotine dependence, unspecified, uncomplicated
CPT/HCPCS: 87081; 87430; 96372; 99284

== ENCOUNTER 2019-07-28 10:32 | Inpatient (IN) | payer MEDICAID, OTHER ==
--- NOTE | 2019-07-28 11:06 | ED ---
Psych HPI - General Chief Complaint: Psychiatric Symptoms Stated Complaint: EPS eval Time Seen by Provider: 07/28/19 10:49 Source: patient Mode of arrival: ambulatory - History of Present Illness Initial Comments: Patient is a 34-year-old male, with history depression, presenting to the emergency department for psychiatric evaluation. Patient states he has been having suicidal thoughts for the last 2 days because his cousin recently committed suicide. Patient states he went to see his psychiatrist today at [facility] and they recommended him come to the hospital for evaluation. Patient states he has a plan to slit his wrists. He denies any homicidal thoughts. He states he has been taking his medication regularly. He denies any recent fever, chills, chest pain, shortness of breath. He has no further complaints at this time. Upon arrival to the ER, his vital signs are stable. - Related Data Home Medications Medication Instructions Recorded Confirmed ARIPiprazole [Abilify Maintena] 400 mg IM Q28D 07/28/19 07/28/19 Allergies Allergy/AdvReac Type Severity Reaction Status Date / Time No Known Allergies Allergy Verified 07/28/19 11:18 Review of Systems ROS Statement: Those systems with pertinent positive or pertinent negative responses have been documented in the HPI. ROS Other: All systems not noted in ROS Statement are negative. Past Medical History Past Medical History: No Reported History Additional Past Medical History / Comment(s): "emotionally impaired" chronic back pain History of Any Multi-Drug Resistant Organisms: None Reported Past Surgical History: Orthopedic Surgery Additional Past Surgical History / Comment(s): ORIF left arm, nasal surgery due to fracture, left jaw, bilateral cataract removal and intraocular lens implants. Past Anesthesia/Blood Transfusion Reactions: No Reported Reaction Past Psychological History: ADD/ADHD, Anxiety, Bipolar, Depression Smoking Status: Current every day smoker Past Alcohol Use History: Occasional Past Drug Use History: Marijuana - Past Family History Father Additional Family Medical History / Comment(s): Father is alive at age 59 with history of hypertension. Mother Additional Family Medical History / Comment(s): Mother is alive at age 61 with history of coronary artery disease status post CABG, CVA. Brother(s) Additional Family Medical History / Comment(s): Patient has 2 brothers and one has problems with kidney stones. Patient has 1 sister with no major medical problems. Patient has 1 daughter that is having problems with her heart. General Exam - General Exam Comments Initial Comments: GENERAL: Well-appearing, well-nourished and in no acute distress. HEAD: Atraumatic, normocephalic. EYES: Pupils equal round and reactive to light, extraocular movements intact, sclera anicteric, conjunctiva are normal. ENT: TMs normal, nares patent, oropharynx clear without exudates. Moist mucous membranes. NECK: Normal range of motion, supple without lymphadenopathy or JVD. LUNGS: Breath sounds clear to auscultation bilaterally and equal. No wheezes rales or rhonchi. HEART: Regular rate and rhythm without murmurs, rubs or gallops. ABDOMEN: Soft, nontender, normoactive bowel sounds. No guarding, no rebound. No masses appreciated. : Deferred EXTREMITIES: Normal range of motion, no pitting or edema. No clubbing or cyanosis. NEUROLOGICAL: Normal speech, normal gait. PSYCH: Normal mood, normal affect. SKIN: Warm, Dry, normal turgor, no rashes or lesions noted. Limitations: no limitations Course Vital Signs 07/28/19 10:40 Temperature 97.9 F Pulse Rate 83 Respiratory 18 Rate Blood Pressure 134/87 O2 Sat by Pulse 99 Oximetry Medical Decision Making - Medical Decision Making Patient is a 34-year-old male, with history depression, presenting for psychiatric evaluation. He does admit to suicidal thoughts with a plan of sitting his wrist. No homicidal thoughts. UA is positive for amphetamines, meth, cocaine, marijuana. Patient was evaluated by mobile crisis. Patient will be admitted to psych unit. - Lab Data Lab Results 07/28/19 Range/Units 11:07 Urine Opiates Screen Not Detected (NotDetected) Ur Oxycodone Screen Not Detected (NotDetected) Urine Methadone Screen Not Detected (NotDetected) Ur Propoxyphene Screen Not Detected (NotDetected) Ur Barbiturates Screen Not Detected (NotDetected) U Tricyclic Antidepress Not Detected (NotDetected) Ur Phencyclidine Scrn Not Detected (NotDetected) Ur Amphetamines Screen Detected H (NotDetected) U Methamphetamines Scrn Detected H (NotDetected) U Benzodiazepines Scrn Not Detected (NotDetected) Urine Cocaine Screen Detected H (NotDetected) U Marijuana (THC) Screen Detected H (NotDetected) Disposition Clinical Impression: Suicidal ideation Disposition: TRANSFER TO PSYCH HOSP/UNIT Condition: Stable Is patient prescribed a controlled substance at d/c from ED?: No Referrals: None,Stated [Primary Care Provider] - 1-2 days Decision Date: 07/28/19 Decision Time: 14:21
[2019-07-28 11:28] LABS: Cocaine Screen,Urine Detected (NotDetected); Phencyclidine Screen,Urine Not Detected (NotDetected); Urn Cannabinoid Scrn Detected (NotDetected)
[2019-07-28 11:29] LABS: Amphetamine Screen,Urine Detected (NotDetected); Barbiturate Screen,Urine Not Detected (NotDetected); Benzodiazepines Screen,Urine Not Detected (NotDetected); Methadone Screen, Urine Not Detected (NotDetected); Opiate Screen,Urine Not Detected (NotDetected); Oxycodone Screen, Urine Not Detected (NotDetected); Tricyclic Antidepressant,Urine Not Detected (NotDetected)
[2019-07-28] MEDS ORDERED: MAG HYDROX/AL HYDROX/SIMETH 30 ML CUP PO PRN (17:07)
[2019-07-28] MEDS ORDERED: ZIPRASIDONE 20 MG VIAL IM PRN (17:07)
[2019-07-28] MEDS ORDERED: ACETAMINOPHEN TAB 325 MG TAB PO PRN (17:07)
[2019-07-28] MEDS ORDERED: MAGNESIUM HYDROXIDE 2,400 MG/10 ML CUP PO PRN (17:07)
[2019-07-28] MEDS ORDERED: LORazepam 2 MG/ML INJ IM PRN (17:10)
--- NOTE | 2019-07-28 17:33 | P.HPMEDMHU ---
History of Present Illness H&P Date: 07/28/19 Chief Complaint: depression Patient is a 34-year-old -[place] male with tobacco abuse, chronic back pain, and history of prior depression who presented to the emergency department point of depression and suicidal ideation after his cousin committed suicide. Patient was subsequently admitted to the mental health unit. Patient seen and examined at bedside. He reports that he has a chronic smoker's cough that is unchanged, no runny or stuffy nose, no sore throat, no fevers or chills, no body aches. He denies any nausea, vomiting, or diarrhea. He reports that his appetite has been normal. He does report difficulty staying asleep. No other complaints currently. Of note he reports a problem with his thyroid approximately 10-12 years ago when taking medications for his depression. He states that he stopped those medications are resolved. He reports that typically uses marijuana every day and smokes tobacco. He uses cocaine once in a while to deal with things. He denies any known ingestion of methamphetamines. Review of Systems Pertinent positives and negatives as discussed in HPI, a complete review of systems was performed and all other systems are negative. Past Medical History Additional Past Medical History / Comment(s): chronic back pain, cataracts History of Any Multi-Drug Resistant Organisms: None Reported Past Surgical History: Orthopedic Surgery Additional Past Surgical History / Comment(s): ORIF left arm, nasal surgery due to fracture, left jaw, bilateral cataract removal and intraocular lens implants. Past Anesthesia/Blood Transfusion Reactions: No Reported Reaction Past Psychological History: ADD/ADHD, Anxiety, Bipolar, Depression Smoking Status: Current every day smoker Past Alcohol Use History: Occasional Additional Past Alcohol Use History / Comment(s): Smokes half a pack every day Past Drug Use History: Cocaine, Marijuana, Methamphetamine - Past Family History Father Additional Family Medical History / Comment(s): Father is alive at age 59 with history of hypertension. Mother Additional Family Medical History / Comment(s): Mother is alive at age 61 with history of coronary artery disease status post CABG, CVA. Brother(s) Additional Family Medical History / Comment(s): Patient has 2 brothers and one has problems with kidney stones. Patient has 1 sister with no major medical problems. Patient has 1 daughter that is having problems with her heart. Medications and Allergies Home Medications Medication Instructions Recorded Confirmed Type ARIPiprazole [Abilifbethany Maintena] 400 mg IM Q28D 07/28/19 07/28/19 History Allergies Allergy/AdvReac Type Severity Reaction Status Date / Time No Known Allergies Allergy Verified 07/28/19 11:18 Physical Exam Osteopathic Statement: *. No significant issues noted on an osteopathic structural exam other than those noted in the History and Physical/Consult. Vitals: Vital Signs Temp Pulse Pulse Resp BP BP Pulse Ox 07/28/19 16:55 97.5 F L 76 18 141/80 07/28/19 16:36 97.3 F L 82 18 133/78 98 07/28/19 10:40 97.9 F 83 18 134/87 99 Intake and Output 07/28/19 07/28/19 07/28/19 06:59 14:59 22:59 Other: Weight 137.438 kg 137.438 kg General: non toxic, no distress, appears at stated age, obese Derm: Multiple tattoos, no unusual rashes/lesions no unusual ecchymoses, warm, dry Head: atraumatic, normocephalic, symmetric Eyes: EOMI, no lid lag, anicteric sclera, pupils equal round reactive to light ENT: Nose and ears atraumatic, no thrush, no pharyngeal erythema Neck: No thyromegaly, no cervical lymphadenopathy, trachea midline, supple Mouth: no lip lesion, mucus membranes moist Cardiovascular: S1S2 reg, no murmur, positive posterior tibial pulse bilateral, no edema, capillary refill less than 2 seconds Lungs: CTA bilateral, no rhonchi, no rales , no accessory muscle use Abdominal: soft, nontender to palpation, no guarding, no appreciable organomegaly, normal bowel sounds Ext: no gross muscle atrophy, muscle strength 5 out of 5 in all 4 extremities grossly, no contractures, Neuro: CN II-XI grossly intact, light touch intact all 4 extremities, finger to nose within normal limits, Psych: Alert, oriented, flat affect Cranial Nerve Examination - Cranial Nerves Cranial Nerve II- Optic: Intact Cranial Nerve III- Oculomotor: Intact Cranial Nerve IV- Trochlear: Intact Cranial Nerve V- Trigeminal: Intact Cranial Nerve - Abducens: Intact Cranial Nerve VII- Facial: Intact Cranial Nerve VIII- Auditory: Intact Cranial Nerve IX- Glossopharyngeal: Intact Cranial Nerve X- Vagus: Intact Cranial Nerve XI- Accessory: Intact Cranial Nerve XII- Hypoglossal: Intact Results Labs: Abnormal Lab Results - Last 24 Hours (Table) 07/28/19 Range/Units 11:07 Ur Amphetamines Screen Detected H (NotDetected) U Methamphetamines Scrn Detected H (NotDetected) Urine Cocaine Screen Detected H (NotDetected) U Marijuana (THC) Screen Detected H (NotDetected) Thrombosis Risk Factor Assmnt - DVT/VTE Prophylaxis DVT/VTE Prophylaxis: Low risk, early ambulation encouraged - Choose All That Apply Any of the Below Risk Factors Present?: No Other Risk Factors: No Other congenital or acquired thrombophilia - If yes, enter type in comment: No Thrombosis Risk Factor Assessment Level: Very Low Risk Assessment and Plan Assessment: Chronic back pain -Motrin and Tylenol as needed Tobacco abuse -Cessation -Nicotine replacement Chronic marijuana use -Cessation encouraged -Monitor for nausea and vomiting Depression -Your psych management Of note patient reports problems with his thyroid in the past. We'll check TSH with reflex T4. If abnormal will follow. Thank you for allowing us to participate in the care of this pleasant patient. Do not hesitate to contact us with questions. Someone can be reached from the [facility] [place] hospitalist group all hours of the day at [phone] or via [employer].
[2019-07-28] MEDS: LORazepam 1 MG TAB PO PRN (17:34)
[2019-07-28] MEDS ORDERED: ALBUTEROL HFA INHALER INHALATION PRN (19:00)
[2019-07-29] MEDS: NICOTINE 14MG/24HR PATCH TRANSDERM SCH ×2 (08:52→13:21)
[2019-07-29] MEDS: LORazepam 1 MG TAB PO PRN (08:52)
[2019-07-29 09:32] LABS: Basophils # (A) 0.1 k/uL (0-0.2); Basophils % (A) 1 %; Eosinophils # (A) 0.2 k/uL (0-0.7); Eosinophils % (A) 3 %; HCT 50.5 % (39.0-53.0); HGB 16.3 gm/dL (13.0-17.5); Lymphocytes # (A) 2.4 k/uL (1.0-4.8); Lymphocytes % (A) 36 %; MCH 28.6 pg (25.0-35.0); MCHC 32.3 g/dL (31.0-37.0); MCV 88.6 fL (80.0-100.0); Mean Platelet Volume 7.7; Monocytes # (A) 0.4 k/uL (0-1.0); Monocytes % (A) 6 %; Neutrophils # (A) 3.5 k/uL (1.3-7.7); Neutrophils % (A) 52 %; Platelet Count 235 k/uL (150-450); RBC 5.69 m/uL (4.30-5.90); RDW 12.8 % (11.5-15.5); WBC 6.8 k/uL (3.8-10.6)
[2019-07-29 09:34] LABS: Albumin 4.3 g/dL (3.5-5.0); Calcium 9.4 mg/dL (8.4-10.2); Potassium 4.3 mmol/L (3.5-5.1); Total Bilirubin 0.8 mg/dL (0.2-1.3); Total Protein 7.7 g/dL (6.3-8.2)
--- NOTE | 2019-07-29 11:43 | P.HP ---
Psychiatric H&P - . H&P Date: 07/29/19 History & Physical: Allergies Allergy/AdvReac Type Severity Reaction Status Date / Time No Known Allergies Allergy Verified 07/28/19 11:18 Vital Signs Temp 97.9 F 07/28/19 23:22 Pulse 76 07/28/19 16:55 Resp 18 07/28/19 16:55 BP 141/80 07/28/19 16:55 Pulse Ox 98 07/28/19 16:36 Intake & Output 07/28/19 07/29/19 07/29/19 18:59 06:59 18:59 Weight 137.438 kg Laboratory Last Values WBC 6.8 k/uL (3.8-10.6) 07/29/19 08:28 RBC 5.69 m/uL (4.30-5.90) 07/29/19 08:28 Hgb 16.3 gm/dL (13.0-17.5) 07/29/19 08:28 Hct 50.5 % (39.0-53.0) 07/29/19 08:28 MCV 88.6 fL (80.0-100.0) 07/29/19 08:28 MCH 28.6 pg (25.0-35.0) 07/29/19 08:28 MCHC 32.3 g/dL (31.0-37.0) 07/29/19 08:28 RDW 12.8 % (11.5-15.5) 07/29/19 08:28 Plt Count 235 k/uL (150-450) 07/29/19 08:28 Neutrophils % 52 % 07/29/19 08:28 Lymphocytes % 36 % 07/29/19 08:28 Monocytes % 6 % 07/29/19 08:28 Eosinophils % 3 % 07/29/19 08:28 Basophils % 1 % 07/29/19 08:28 Neutrophils # 3.5 k/uL (1.3-7.7) 07/29/19 08:28 Lymphocytes # 2.4 k/uL (1.0-4.8) 07/29/19 08:28 Monocytes # 0.4 k/uL (0-1.0) 07/29/19 08:28 Eosinophils # 0.2 k/uL (0-0.7) 07/29/19 08:28 Basophils # 0.1 k/uL (0-0.2) 07/29/19 08:28 Sodium 138 mmol/L (137-145) 07/29/19 08:28 Potassium 4.3 mmol/L (3.5-5.1) 07/29/19 08:28 Chloride 104 mmol/L (98-107) 07/29/19 08:28 Carbon Dioxide 27 mmol/L (22-30) 07/29/19 08:28 Anion Gap 7 mmol/L 07/29/19 08:28 BUN 11 mg/dL (9-20) 07/29/19 08:28 Creatinine 1.24 mg/dL (0.66-1.25) 07/29/19 08:28 Est GFR (CKD-EPI)AfAm 87 (>60 ml/min/1.73 sqM) 07/29/19 08:28 Est GFR (CKD-EPI)NonAf 75 (>60 ml/min/1.73 sqM) 07/29/19 08:28 Glucose 97 mg/dL (74-99) 07/29/19 08:28 Calcium 9.4 mg/dL (8.4-10.2) 07/29/19 08:28 Total Bilirubin 0.8 mg/dL (0.2-1.3) 07/29/19 08:28 AST 26 U/L (17-59) 07/29/19 08:28 ALT 25 U/L (4-49) 07/29/19 08:28 Alkaline Phosphatase 91 U/L (38-126) 07/29/19 08:28 Total Protein 7.7 g/dL (6.3-8.2) 07/29/19 08:28 Albumin 4.3 g/dL (3.5-5.0) 07/29/19 08:28 Triglycerides 234 mg/dL (<150) H 07/29/19 08:28 Cholesterol 168 mg/dL (<200) 07/29/19 08:28 LDL Cholesterol, Calc 86 mg/dL (0-99) 07/29/19 08:28 HDL Cholesterol 35 mg/dL (40-60) L 07/29/19 08:28 TSH 1.770 mIU/L (0.465-4.680) 07/29/19 08:28 Urine Opiates Screen Not Detected (NotDetected) 07/28/19 11:07 Ur Oxycodone Screen Not Detected (NotDetected) 07/28/19 11:07 Urine Methadone Screen Not Detected (NotDetected) 07/28/19 11:07 Ur Propoxyphene Screen Not Detected (NotDetected) 07/28/19 11:07 Ur Barbiturates Screen Not Detected (NotDetected) 07/28/19 11:07 U Tricyclic Antidepress Not Detected (NotDetected) 07/28/19 11:07 Ur Phencyclidine Scrn Not Detected (NotDetected) 07/28/19 11:07 Ur Amphetamines Screen Detected (NotDetected) H 07/28/19 11:07 U Methamphetamines Scrn Detected (NotDetected) H 07/28/19 11:07 U Benzodiazepines Scrn Not Detected (NotDetected) 07/28/19 11:07 Urine Cocaine Screen Detected (NotDetected) H 07/28/19 11:07 U Marijuana (THC) Screen Detected (NotDetected) H 07/28/19 11:07 Coronavirus (PCR) Not Detected (Not Detected) 07/28/19 14:44 07/29/19 11:17 IDENTIFYING DATA: Patient is a 34-year-old male who currently lives alone in an apartment has one daughter is and is currently unemployed. HPI: Patient presented to the hospital yesterday with complaints of suicidal thoughts for the past 2 days. Patient claimed us for ER report that his cousin committed suicide approximately 2 months ago which is a main stressor for him and states that he walked into [facility] who referred patient to come to the emergency room for evaluation. Patient had a plan to slit his wrist according to ER report. Patient was positive UDS for methamphetamine, cocaine, marijuana. Patient was seen this morning for interview and evaluation and appeared to have clean grooming and hygiene. He states that he has been feeling depressed within the past 2 days and states that he has been having racing thoughts and suicidal ideations as well. He states that his cousin committed suicide 2 months ago however when asked how he is dealing with that he states that "I'm dealing with it alright I guess". He did not elaborate much more on his grief and denied any current stressors or triggers. He states that he did use cocaine only "one day" and claims that it may have been laced with methamphetamine and he claims that he did this 2 days ago. He claimed that he also smokes marijuana daily. He admits to depression and anxiety at this time. He states that his sleep has been poor however slept better last night. He claims that his appetite has been fair. He denies any recent manic episodes. Patient denies any suicidal or homicidal ideations intent or plan. At this time patient denies any auditory or visual hallucinations. Patient denies any flight of ideas and increased in goal directed behavior. Patient admits to using recreational drugs as above and claims that he smokes cigarettes daily and alcohol occasionally. PAST PSYCHIATRIC HISTORY: Patient states that he has a history of bipolar disorder and depression. Patient is currently on Abilify Maintenna monthly in jection 400 mg and will be due for his next dose on 08/07/2019. Patient was previously on Lexapro in his previous admission. Patient was previously admitted to the mental health unit on 08/2018 and has had several admissions prior to that. Patient states that he follows up at [facility] at Dr. Davenport. Patient denies any history of suicide attempts in the past. PMH:denies ALLERGIES: as per EMR CHEMICAL DEPENDENCY HISTORY: as per HPI FAMILY PSYCHIATRIC/SUBSTANCE USE HISTORY: denies SOCIAL HISTORY: Patient was born and raised in [facility] and claims that he currently lives in apartment alone and has one daughter is and is unemployed. He states that he completed up to the 11th grade of school. 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 He denies any legal history. MENTAL STATUS EXAM: General Appearance: Patient appears to be stated age is overweight, alert, directable, and attempts to cooperate. Patient appears to have fair hygiene and grooming. Wearing hospital gown. Behavior: Patient is seated without any agitated behavior. Attempts to cooperate. Speech: Patient's speech is fluent and nonpressured. Mood/Affect: Patient reports their mood is depressed, affect is congruent and constricted. Suicidality/Homicidality: Patient denies having any homicidal ideation intent or plan. Denies any suicidal ideations intent or plan Perceptions: Patient denies any visual hallucinations and denies any auditory hallucinations Though content/process: There is no evidence of any delusional thought content and thought process is linear and goal-directed. Preoccupied with depressive thoughts. Memory and concentration: AOX3, grossly intact for the purposes of this session. Can spell "WORLD" backwards Judgment and insight: poor STRENGTHS/WEAKNESSES: strength is that patient is resilient. Weakness is that patient has poor judgment INTELLECT: average IMPRESSIONS: Bipolar disorder, currently depressed Anxiety disorder unspecified Methamphetamine abuse Cocaine abuse Cannabis use disorder Nicotine dependence PLAN: -Patient is admitted under voluntary status to MHU for stabilization of psychiatric symptoms and safety. Patient signed adult voluntary form and medication consent and is placed in patient's chart. -Medications : Will start patient on Zoloft 50 mg daily for mood/anxiety, Benadryl 25 mg daily at bedtime for insomnia. Patient is currently on Abilify Maintenna 400 mg IM monthly and will be due for his next dose on 08/07/2019. -Ativan and Geodon PRN for agitation/aggression -Patient was counselled on substance abuse and desired to cut back on use however is currently declining rehab. -Patient was informed of the risks, benefits and side effects of the medication and patient verbally consented to taking the medications. Patient signed med consent form and was placed in chart. -Internal Medicine consult to perform medical evaluation and physical. -NRT - nicotine patch -SW on board for discharge planning. Encourage patient to participate in groups to work on coping skills. 07/29/19 11:19 07/29/19 11:35
[2019-07-29] MEDS: SERTRALINE 50 MG TAB PO SCH (11:47)
[2019-07-29 18:54] LABS: Hemoglobin A1C 5.7 % (4.0-6.0)
[2019-07-29] MEDS ORDERED: diphenhydrAMINE 25 MG CAP PO SCH (21:00)
[2019-07-30] MEDS: NICOTINE 14MG/24HR PATCH TRANSDERM SCH (08:45)
[2019-07-30] MEDS: SERTRALINE 50 MG TAB PO SCH (08:45)
[2019-07-30] MEDS: LORazepam 1 MG TAB PO PRN (08:45)
--- NOTE | 2019-07-30 09:44 | P.PN ---
Progress Note - Text Progress Note Date: 07/30/19 Interval History: Patient was seen wandering the hallways and was directable and agreeable to sp daisha with typewriter aligner in the office. Patient just talk his morning medications and states that "I need to give the medications more time to work" he also was complaining of having ongoing suicidal thoughts at times of "jumping in the river" referring to his cousin who recently committed suicide. Stated he states that he still feels anxious and depressed and also endorsed hopelessness. He states that he hasn't been going to groups however was encouraged to do so today. He states that he only slept 4-5 hours last night and was agreeable to have his medications increased. At this time patient denies any suicidal or homical ideations, intent or plan. Patient denies any auditory, visual hallucinations and denies any paranoia or delusions. Patient denies any side effects from the medications and has been compliant with meds. Mental Status Exam: General Appearance: Patient appears to be stated age is overweight, alert, directable, and attempts to cooperate. Patient appears to have fair hygiene and grooming. Behavior: Patient is seated without any agitated behavior. Attempts to cooperate. Speech: Patient's speech is fluent and nonpressured. Mood/Affect: Patient reports their mood is depressed and hopeless, affect is congruent and constricted. Suicidality/Homicidality: Patient denies having any homicidal ideation intent or plan. Denies any suicidal ideations intent or plan Perceptions: Patient denies any visual hallucinations and denies any auditory hallucinations Though content/process: There is no evidence of any delusional thought content and thought process is linear and goal-directed. Preoccupied with depressive thoughts and medications. Memory and concentration: AOX3, grossly intact for the purposes of this session. Judgment and insight: poor, mildly improving Assessment Bipolar disorder, currently depressed Anxiety disorder unspecified Methamphetamine abuse Cocaine abuse Cannabis use disorder Nicotine dependence Plan: -Patient continues to meet criteria for inpatient psychiatric admission for symptom stabilization and safety. Patient has signed adult voluntary form and medication consent and was placed in patient's chart. -Medications: Increase Zoloft 100 mg daily for mood/anxiety, increased Benadryl 25 mg nightly for insomnia. Patient is currently on Abilify Maintenna 400 mg IM monthly and will be due for his next dose on 08/07/2019. -When necessary Ativan and Avani for agitation/aggression. -NRT - nicotine patch -SW on board for discharge planning. Encouraged the patient to participate in milieu. Patient continues to refuse inpatient substance use rehab.
[2019-07-30] MEDS ORDERED: diphenhydrAMINE 50 MG CAP PO SCH (21:00)
[2019-07-31 06:00] VITALS: BP 130/64; PULSE 77; RESP 18; TEMP 98.2
[2019-07-31] MEDS: NICOTINE 14MG/24HR PATCH TRANSDERM SCH (08:46)
--- NOTE | 2019-07-31 08:58 | P.DS ---
Providers Date of admission: 07/28/19 16:22 Expected date of discharge: 07/31/19 Attending physician: Manjit Venegas MD Consults: 07/28/19 17:07 Consult Physician Routine Consulting Provider: Roshan Physician Consult Reason/Comments: H&P and medical Do you want consulting provider notified?: Already Contacted Primary care physician: Stated None - Discharge Diagnosis(es) (1) Bipolar disorder current episode depressed Current Visit: Yes Status: Acute Priority: High (2) Anxiety disorder Current Visit: Yes Status: Acute Priority: Medium (3) Methamphetamine abuse Current Visit: Yes Status: Acute Priority: Medium (4) Cocaine abuse Current Visit: Yes Status: Acute Priority: Medium (5) Cannabis use disorder, mild, abuse Current Visit: Yes Status: Acute Priority: Low (6) Nicotine dependence Current Visit: Yes Status: Acute Priority: Low Hospital Course: Admission HPI: Patient is a 34-year-old male who currently lives alone in an apartment has one daughter is and is currently unemployed. Patient presented to the hospital yesterday with complaints of suicidal thoughts for the past 2 days. Patient claimed us for ER report that his cousin committed suicide approximately 2 months ago which is a main stressor for him and states that he walked into [facility] who referred patient to come to the emergency room for evaluation. Patient had a plan to slit his wrist according to ER report. Patient was positive UDS for methamphetamine, cocaine, marijuana. Patient was seen this morning for interview and evaluation and appeared to have clean grooming and hygiene. He states that he has been feeling depressed within the past 2 days and states that he has been having racing thoughts and suicidal ideations as well. He states that his cousin committed suicide 2 months ago however when asked how he is dealing with that he states that "I'm dealing with it alright I guess". He did not elaborate much more on his grief and denied any current stressors or triggers. He states that he did use cocaine only "one day" and claims that it may have been laced with methamphetamine and he claims that he did this 2 days ago. He claimed that he also smokes marijuana daily. He admits to depression and anxiety at this time. He states that his sleep has been poor however slept better last night. He claims that his appetite has been fair. He denies any recent manic episodes. Patient denies any suicidal or homicidal ideations intent or plan. At this time patient denies any auditory or visual hallucinations. Patient denies any flight of ideas and increased in goal directed behavior. Patient admits to using recreational drugs as above and claims that he smokes cigarettes daily and alcohol occasionally. Hospital course: Upon admission to the unit patient was initially depressed/anxious and having suicidal thoughts. Patient was however directable and agreeable to commence treatment. Patient got along well with other patients on the unit and followed unit protocol. Patient was compliant with the medications and denied any side effects throughout hospital course. Patient was started on Zoloft and titrated up to a dose of 100 mg daily for mood/anxiety. Patient was also started on Benadryl and titrated up to a dose of 50 mg nightly for insomnia. Patient is already currently on Abilify Maintenna 400 mg IM monthly dose and will be due for his next dose on 08/07/2019. Patient spoke of his stressors and engaged in therapy both group and individual. Patient states that he will work on his coping skills while on the unit. Patient was also seen by medical team for history and physical exam. Throughout the course of the hospitalization patient gradually improved with regards to mood, irritability, anxiety, sleep and became future oriented with improved insight and judgment. On the day of discharge patient denied any suicidal or homicidal ideations intent or plan denied any auditory or visual hallucinations. Patient endorsed wanting to live for his daughter and his catholic. The patient denied any access to guns or weapons. Patient denied any paranoia and did not endorse any delusions. Patient does have a significant history of substance abuse and was counseled on abstaining from all substances including alcohol and marijuana. Patient was offered however declined inpatient substance-abuse rehab and wanted to cut back on his own. Patient was also counseled on the medications and need for regular compliance and was encouraged to follow-up with their outpatient appointment for mental health and also for primary care. Prior to discharge a family meeting will be arranged by social services analyst to answer any questions and ensure safety upon discharge. Mental status exam: General Appearance: Patient appears to be overweight, stated age is alert, pleasant, and cooperative. Patient is in no acute distress and has fair hygiene and grooming Behavior: Patient is calmly seated without any agitated behavior. Times to cooperate. Speech: Patient's speech is fluent and nonpressured. Mood/Affect: Patient reports their mood is "much better", affect is congruent and euthymic. Suicidality/Homicidality: Patient denies having any suicidal or homicidal ideation intent or plan. Perceptions: Patient denies any auditory or visual hallucinations. Though content/process: There is no evidence of any delusional thought content and thought process is linear and goal-directed. more future oriented Memory and concentration: AOX3, grossly intact for the purposes of this session. Can spell "WORLD" backwards correctly. Judgment and insight: Improved with guarded prognosis Impression: Bipolar disorder, current episode depressed Anxiety disorder unspecified Methamphetamine abuse Cocaine abuse Cannabis use disorder Nicotine dependence Plan: -Continue with discharge today as patient has improved and stabilized psychiatrically and is not currently an imminent threat to himself and/or others. -Continue medications: Continue with Zoloft 100 mg daily for mood/anxiety, Benadryl 50 mg nightly for insomnia. Patient is already currently on Abilify Maintenna 400 mg IM monthly dose and will be due for his next dose on 08/07/2019 to be given at [facility]. -Patient was counseled on the need for medication compliance and appropriate follow-up at mental health and also primary care for medical issues. Patient verbalized understanding and agreed. -Social work to arrange for and conduct family meeting to ensure safety upon discharge and answer any questions/concerns. Social work also to arrange for patients follow up appointments with [facility] for psychiatric care along with follow up with primary care provider. -Patient counseled on abstaining from recreational drugs and marijuana and alcohol. Was informed/educated on the adverse effects on their physical and mental health. Patient verbally agreed and understood. Patient was offered substance abuse treatment however declined at this time. -Patient was instructed to return to the hospital or seek immediate medical care if their psychiatric or medical symptoms do worsen or reoccur. Allergies Allergy/AdvReac Type Severity Reaction Status Date / Time No Known Allergies Allergy Verified 07/28/19 11:18 Laboratory Results WBC 6.8 k/uL (3.8-10.6) 07/29/19 08:28 RBC 5.69 m/uL (4.30-5.90) 07/29/19 08:28 Hgb 16.3 gm/dL (13.0-17.5) 07/29/19 08:28 Hct 50.5 % (39.0-53.0) 07/29/19 08:28 MCV 88.6 fL (80.0-100.0) 07/29/19 08:28 MCH 28.6 pg (25.0-35.0) 07/29/19 08:28 MCHC 32.3 g/dL (31.0-37.0) 07/29/19 08:28 RDW 12.8 % (11.5-15.5) 07/29/19 08:28 Plt Count 235 k/uL (150-450) 07/29/19 08:28 Neutrophils % 52 % 07/29/19 08:28 Lymphocytes % 36 % 07/29/19 08:28 Monocytes % 6 % 07/29/19 08:28 Eosinophils % 3 % 07/29/19 08: Basophils % 1 % 07/29/19 08:28 Neutrophils # 3.5 k/uL (1.3-7.7) 07/29/19 08:28 Lymphocytes # 2.4 k/uL (1.0-4.8) 07/29/19 08:28 Monocytes # 0.4 k/uL (0-1.0) 07/29/19 08:28 Eosinophils # 0.2 k/uL (0-0.7) 07/29/19 08:28 Basophils # 0.1 k/uL (0-0.2) 07/29/19 08:28 Sodium 138 mmol/L (137-145) 07/29/19 08:28 Potassium 4.3 mmol/L (3.5-5.1) 07/29/19 08:28 Chloride 104 mmol/L (98-107) 07/29/19 08:28 Carbon Dioxide 27 mmol/L (22-30) 07/29/19 08:28 Anion Gap 7 mmol/L 07/29/19 08:28 BUN 11 mg/dL (9-20) 07/29/19 08:28 Creatinine 1.24 mg/dL (0.66-1.25) 07/29/19 08:28 Est GFR (CKD-EPI)AfAm 87 (>60 ml/min/1.73 sqM) 07/29/19 08:28 Est GFR (CKD-EPI)NonAf 75 (>60 ml/min/1.73 sqM) 07/29/19 08:28 Glucose 97 mg/dL (74-99) 07/29/19 08:[address] Glu mg/dL 117 07/29/19 08:28 Hemoglobin A1c 5.7 % (4.0-6.0) 07/29/19 08:28 Calcium 9.4 mg/dL (8.4-10.2) 07/29/19 08:28 Total Bilirubin 0.8 mg/dL (0.2-1.3) 07/29/19 08:28 AST 26 U/L (17-59) 07/29/19 08:28 ALT 25 U/L (4-49) 07/29/19 08:28 Alkaline Phosphatase 91 U/L (38-126) 07/29/19 08:28 Total Protein 7.7 g/dL (6.3-8.2) 07/29/19 08:28 Albumin 4.3 g/dL (3.5-5.0) 07/29/19 08:28 Triglycerides 234 mg/dL (<150) H 07/29/19 08:28 Cholesterol 168 mg/dL (<200) 07/29/19 08:28 LDL Cholesterol, Calc 86 mg/dL (0-99) 07/29/19 08:28 HDL Cholesterol 35 mg/dL (40-60) L 07/29/19 08:28 TSH 1.770 mIU/L (0.465-4.680) 07/29/19 08:28 Urine Opiates Screen Not Detected (NotDetected) 07/28/19 11:07 Ur Oxycodone Screen Not Detected (NotDetected) 07/28/19 11:07 Urine Methadone Screen Not Detected (NotDetected) 07/28/19 11:07 Ur Propoxyphene Screen Not Detected (NotDetected) 07/28/19 11:07 Ur Barbiturates Screen Not Detected (NotDetected) 07/28/19 11:07 U Tricyclic Antidepress Not Detected (NotDetected) 07/28/19 11:07 Ur Phencyclidine Scrn Not Detected (NotDetected) 07/28/19 11:07 Ur Amphetamines Screen Detected (NotDetected) H 07/28/19 11:07 U Methamphetamines Scrn Detected (NotDetected) H 07/28/19 11:07 U Benzodiazepines Scrn Not Detected (NotDetected) 07/28/19 11:07 Urine Cocaine Screen Detected (NotDetected) H 07/28/19 11:07 U Marijuana (THC) Screen Detected (NotDetected) H 07/28/19 11:07 Coronavirus (PCR) Not Detected (Not Detected) 07/28/19 14:44 Vital Signs Temp 98.2 F 07/31/19 05:59 Pulse 77 07/31/19 05:59 Resp 18 07/31/19 05:59 BP 130/64 07/31/19 05:59 Pulse Ox 97 07/31/19 05:59 Patient Condition at Discharge: Stable Plan - Discharge Summary Discharge Rx Participant: No New Discharge Prescriptions: New diphenhydrAMINE [Benadryl] 50 mg PO HS 30 Days cap Nicotine 14Mg/24Hr Patch [Habitrol] 1 patch TRANSDERM DAILY 14 Days patch Albuterol Inhaler [Ventolin Hfa Inhaler] 2 puff INHALATION RT-TID PRN puff PRN Reason: Shortness Of Breath Or Wheezing Sertraline [Zoloft] 100 mg PO DAILY 30 Days tab Continue ARIPiprazole [Abilify Maintena] 400 mg IM Q28D #1 syr Discharge Medication List ARIPiprazole [Abilify Maintena] 400 mg IM Q28D #1 syr 07/31/19 [Rx] Albuterol Inhaler [Ventolin Hfa Inhaler] 2 puff INHALATION RT-TID PRN puff 07/31/19 [Rx] Nicotine 14Mg/24Hr Patch [Habitrol] 1 patch TRANSDERM DAILY 14 Days patch 07/31/19 [Rx] Sertraline [Zoloft] 100 mg PO DAILY 30 Days tab 07/31/19 [Rx] diphenhydrAMINE [Benadryl] 50 mg PO HS 30 Days cap 07/31/19 [Rx] Follow up Appointment(s)/Referral(s): None,Stated [Primary Care Provider] - 1-2 days Discharge Disposition: HOME SELF-CARE
[2019-07-31] MEDS ORDERED: SERTRALINE 100 MG TAB PO SCH (09:00)
== END 2019-07-31 10:35 | disposition home or self-care (01) | DRG 885 ==
LOC: EC 10:32 → 3MHU 16:22
PROVIDERS: ADMIT Psychiatry & Neurology Psychiatry; ATTEND Psychiatry & Neurology Psychiatry
DX: F31.30 Bipolar disorder, current episode depressed, mild or moderate severity, unspecified (principal); R45.851 Suicidal ideations; F12.10 Cannabis abuse, uncomplicated; F14.10 Cocaine abuse, uncomplicated; F15.10 Other stimulant abuse, uncomplicated; F17.200 Nicotine dependence, unspecified, uncomplicated; F41.9 Anxiety disorder, unspecified; G47.00 Insomnia, unspecified; F90.9 Attention-deficit hyperactivity disorder, unspecified type; G89.29 Other chronic pain; M54.9 Dorsalgia, unspecified; Z11.59 Encounter for screening for other viral diseases; F17.210 Nicotine dependence, cigarettes, uncomplicated; Z56.0 Unemployment, unspecified; Z79.899 Other long term (current) drug therapy; Z96.1 Presence of intraocular lens; Z98.42 Cataract extraction status, left eye; Z98.41 Cataract extraction status, right eye; Z82.3 Family history of stroke; Z82.49 Family history of ischemic heart disease and other diseases of the circulatory system; Z84.1 Family history of disorders of kidney and ureter
CPT/HCPCS: 80053; 80061; 80306; 82075; 83036; 84443; 85025; 99284

== ENCOUNTER 2020-01-28 06:37 | Emergency (ER) | payer OTHER ==
[2020-01-28 06:47] VITALS: BP 161/73; PULSE 86; RESP 16; TEMP 98.6
--- NOTE | 2020-01-28 06:59 | ED ---
General Adult HPI - General Chief complaint: Extremity Injury, Lower Stated complaint: ankle pain Time Seen by Provider: 01/28/20 06:51 Source: patient, RN notes reviewed, old records reviewed Mode of arrival: wheelchair Limitations: no limitations - History of Present Illness Initial comments: 34-year-old male presents emergency department today complaining of right ankle pain. Patient reports he slipped on ice 4 days ago. Patient states that he had pain since that time with Ambulation. He denies any previous ankle fracture. - Related Data Previous Rx's Medication Instructions Recorded ARIPiprazole [Abilify Maintena] 400 mg IM Q28D #1 syr 07/31/19 Albuterol Inhaler [Ventolin Hfa 2 puff INHALATION RT-TID PRN puff 07/31/19 Inhaler] Nicotine 14Mg/24Hr Patch [Habitrol] 1 patch TRANSDERM DAILY 14 Days 07/31/19 patch Sertraline [Zoloft] 100 mg PO DAILY 30 Days tab 07/31/19 diphenhydrAMINE [Benadryl] 50 mg PO HS 30 Days cap 07/31/19 Naproxen [EC-Naproxen] 500 mg PO BID #30 tablet. 01/28/20 Allergies Allergy/AdvReac Type Severity Reaction Status Date / Time No Known Allergies Allergy Verified 01/28/20 06:47 Review of Systems ROS Statement: Those systems with pertinent positive or pertinent negative responses have been documented in the HPI. ROS Other: All systems not noted in ROS Statement are negative. Past Medical History Past Medical History: No Reported History Additional Past Medical History / Comment(s): chronic back pain, cataracts History of Any Multi-Drug Resistant Organisms: None Reported Past Surgical History: Orthopedic Surgery Additional Past Surgical History / Comment(s): ORIF left arm, nasal surgery due to fracture, left jaw, bilateral cataract removal and intraocular lens implants. Past Anesthesia/Blood Transfusion Reactions: No Reported Reaction Past Psychological History: ADD/ADHD, Anxiety, Bipolar, Depression Smoking Status: Current every day smoker Past Alcohol Use History: Occasional Past Drug Use History: Cocaine, Marijuana, Methamphetamine - Past Family History Father Additional Family Medical History / Comment(s): Father is alive at age 59 with history of hypertension. Mother Additional Family Medical History / Comment(s): Mother is alive at age 61 with history of coronary artery disease status post CABG, CVA. Brother(s) Additional Family Medical History / Comment(s): Patient has 2 brothers and one has problems with kidney stones. Patient has 1 sister with no major medical problems. Patient has 1 daughter that is having problems with her heart. General Exam - General Exam Comments Initial Comments: 34-year-old male. Alert and oriented. Limitations: no limitations General appearance: alert, in no apparent distress Head exam: Present: atraumatic, normocephalic, normal inspection Eye exam: Present: normal appearance, PERRL, EOMI. Absent: scleral icterus, con junctival injection, periorbital swelling ENT exam: Present: normal exam, mucous membranes moist Neck exam: Present: normal inspection. Absent: tenderness, meningismus, lymphadenopathy Respiratory exam: Present: normal lung sounds bilaterally. Absent: respiratory distress, wheezes, rales, rhonchi, stridor Cardiovascular Exam: Present: regular rate, normal rhythm, normal heart sounds. Absent: systolic murmur, diastolic murmur, rubs, gallop, clicks GI/Abdominal exam: Present: soft, normal bowel sounds. Absent: distended, tenderness, guarding, rebound, rigid Extremities exam: Present: normal inspection, full ROM, normal capillary refill. Absent: tenderness, pedal edema, joint swelling, calf tenderness Right Upper Leg exam: Present: normal inspection, full ROM Knee exam: Present: normal inspection, full ROM Lower Leg exam: Present: normal inspection, full ROM Ankle exam: Present: full ROM (Patient reports pain with flexion and inversion and eversion of the right ankle. Normal pulses dorsalis pedis 2+ bilaterally.). Absent: normal inspection Foot/Toe exam: Present: normal inspection, full ROM Neurovascular tendon exam: Present: no vascular compromise Gait: observed and limited by pain Back exam: Present: normal inspection Neurological exam: Present: alert, oriented X3, CN II-XII intact Psychiatric exam: Present: normal affect, normal mood Skin exam: Present: warm, dry, intact, normal color. Absent: rash Course Vital Signs 01/28/20 06:43 Temperature 98.6 F Pulse Rate 86 Respiratory 16 Rate Blood Pressure 161/73 O2 Sat by Pulse 99 Oximetry Medical Decision Making - Medical Decision Making 34-year-old male presents emergency room today with complaints of right ankle pain after rolling it 4 days ago. At this time patient's x-ray was reviewed and shows no evidence of fracture. MRI may be of benefit due to concern for S her arthritis and abnormal patellar trauma finding. Patient for his results. He was given Lauro wrap and ankle stirrup splint. Advised following up or so. Discussed using crutches for pain relief. Discussed return parameters - Radiology Data Radiology results: report reviewed No acute fracture-dislocation is evident. Osteoarthritis possible osteochondral abnormality of the patellar dome. Ankle MRI may be of benefit. Disposition Clinical Impression: Ankle sprain Disposition: HOME SELF-CARE Condition: Good Instructions (If sedation given, give patient instructions): Ankle Sprain (ED) Additional Instructions: Please use medication as discussed. Please follow up with orthopedic doctor if symptoms have not improved over the next two days. Please return to the emergency room if your symptoms increase or worsen or for any other concerns. Patient is ambulate with crutches. Prescriptions: Naproxen [EC-Naproxen] 500 mg PO BID #30 tablet.dr Is patient prescribed a controlled substance at d/c from ED?: No Referrals: None,Stated [Primary Care Provider] - 1-2 days Erna Marcus DO [Doctor of Osteopathic Medicine] - 1-2 days Time of Disposition: 08:05
--- NOTE | 2020-01-28 07:29 | XR ---
Right ankle HISTORY: Trauma and pain 3 views of the right ankle No comparisons There is mild soft tissue swelling. Bone mineralization, joint spaces and alignment are maintained. Q uestionable lucency is questioned at the ankle mortise along the talar dome. Some mild spurring at th e tibiotalar joint. IMPRESSION: No acute fracture or dislocation is evident. Osteoarthritis, possible osteochondral abnor mality at the talar dome, ankle MRI may be of benefit.
[2020-01-28] MEDS ORDERED: IBUPROFEN 600 MG STARTER PACK 4 TAB BTL PO STA (08:15)
[2020-01-28] MEDS ORDERED: ACET/COD 300 MG/30 MG STARTER PACK 6 TAB BTL PO STA (08:15)
== END 2020-01-28 08:18 | disposition home or self-care (01) ==
LOC: EC 06:37
DX: S93.401A Sprain of unspecified ligament of right ankle, initial encounter (principal); F17.200 Nicotine dependence, unspecified, uncomplicated; W00.0XXA Fall on same level due to ice and snow, initial encounter; Y92.89 Other specified places as the place of occurrence of the external cause
CPT/HCPCS: 29515; 99284

== ENCOUNTER 2020-03-06 10:35 | Inpatient (IN) | payer MEDICAID, OTHER ==
--- NOTE | 2020-03-06 10:47 | ED ---
Psych HPI - General Chief Complaint: Psychiatric Symptoms Stated Complaint: EPS eval Time Seen by Provider: 03/06/20 10:46 Source: patient Mode of arrival: ambulatory - History of Present Illness Initial Comments: 35-year-old male with history of mental health presenting to the emergency department for psychiatric evaluation. Patient states he has been smoking meth an almost daily basis for the past 8 months. Patient states now he is attempting to get off of it and is starting to have suicidal thoughts of drinking bleach or self harm by cutting. Patient states that he wants to detox but is afraid of the thought of doing it. He denies any nausea vomiting diarrhea. He does report an intermittent cough but states he does smoke. - Related Data Home Medications Medication Instructions Recorded Confirmed Escitalopram Oxalate [Lexapro] 10 mg PO DAILY PRN 03/06/20 03/06/20 Previous Rx's Medication Instructions Recorded ARIPiprazole [Abilify Maintena] 400 mg IM Q28D #1 syr 07/31/19 Allergies Allergy/AdvReac Type Severity Reaction Status Date / Time No Known Allergies Allergy Verified 03/06/20 10:42 Review of Systems ROS Statement: Those systems with pertinent positive or pertinent negative responses have been documented in the HPI. ROS Other: All systems not noted in ROS Statement are negative. Past Medical History Past Medical History: No Reported History Additional Past Medical History / Comment(s): chronic back pain, cataracts History of Any Multi-Drug Resistant Organisms: None Reported Past Surgical History: Orthopedic Surgery Additional Past Surgical History / Comment(s): ORIF left arm, nasal surgery due to fracture, left jaw, bilateral cataract removal and intraocular lens implants. Past Anesthesia/Blood Transfusion Reactions: No Reported Reaction Past Psychological History: ADD/ADHD, Anxiety, Bipolar, Depression Smoking Status: Current every day smoker Past Alcohol Use History: Occasional Past Drug Use History: Cocaine, Marijuana, Methamphetamine - Past Family History Father Additional Family Medical History / Comment(s): Father is alive at age 59 with history of hypertension. Mother Additional Family Medical History / Comment(s): Mother is alive at age 61 with history of coronary artery disease status post CABG, CVA. Brother(s) Additional Family Medical History / Comment(s): Patient has 2 brothers and one has problems with kidney stones. Patient has 1 sister with no major medical problems. Patient has 1 daughter that is having problems with her heart. General Exam Limitations: no limitations General appearance: alert, in no apparent distress, obese Head exam: Present: atraumatic, normocephalic, normal inspection Eye exam: Present: normal appearance, PERRL, EOMI Pupils: Present: normal accommodation ENT exam: Present: normal exam, normal oropharynx, mucous membranes moist Neck exam: Present: normal inspection, full ROM. Absent: tenderness Respiratory exam: Present: wheezes (Mild wheezes bilaterally). Absent: normal lung sounds bilaterally, respiratory distress, rales Cardiovascular Exam: Present: regular rate, normal rhythm, normal heart sounds Extremities exam: Present: normal inspection, full ROM, normal capillary refill Back exam: Present: normal inspection, full ROM Neurological exam: Present: alert, oriented X3 Psychiatric exam: Present: normal affect, normal mood Skin exam: Present: warm, dry, intact, normal color Course Vital Signs 03/06/20 10:40 Temperature 98.7 F Pulse Rate 81 Respiratory 18 Rate Blood Pressure 117/79 O2 Sat by Pulse 97 Oximetry Medical Decision Making - Medical Decision Making 35-year-old male presenting to the emergency department for psychiatric evaluation. Patient does report suicidal thoughts with a plan. Urine drug screen positive for marijuana, methamphetamines and amphetamines. On physical examination, patient did have diffuse wheezing but he states that is secondary to his smoking. No chest pain shortness of breath. Chest x-ray unremarkable. EPS evaluated the patient. He will be admitted for further psychiatric management. - Lab Data Result diagrams: 03/06/20 12:45 03/06/20 12:45 Lab Results 03/06/20 03/06/20 03/06/20 Range/Units 10:56 12:45 12:45 WBC 8.3 (3.8-10.6) k/uL RBC 5.10 (4.30-5.90) m/uL Hgb 15.5 (13.0-17.5) gm/dL Hct 44.1 (39.0-53.0) % MCV 86.5 (80.0-100.0) fL MCH 30.4 (25.0-35.0) pg MCHC 35.1 (31.0-37.0) g/dL RDW 12.4 (11.5-15.5) % Plt Count 182 (150-450) k/uL MPV 7.1 Sodium (137-145) mmol/L Potassium (3.5-5.1) mmol/L Chloride (98-107) mmol/L Carbon Dioxide (22-30) mmol/L Anion Gap mmol/L BUN (9-20) mg/dL Creatinine (0.66-1.25) mg/dL Est GFR (CKD-EPI)AfAm (>60 ml/min/1.73 sqM) Est GFR (CKD-EPI)NonAf (>60 ml/min/1.73 sqM) Glucose (74-99) mg/dL Calcium (8.4-10.2) mg/dL Total Bilirubin (0.2-1.3) mg/dL AST (17-59) U/L ALT (4-49) U/L Alkaline Phosphatase (38-126) U/L Total Protein (6.3-8.2) g/dL Albumin (3.5-5.0) g/dL Urine Opiates Screen Not Detected (NotDetected) Ur Oxycodone Screen Not Detected (NotDetected) Urine Methadone Screen Not Detected (NotDetected) Ur Propoxyphene Screen Not Detected (NotDetected) Ur Barbiturates Screen Not Detected (NotDetected) U Tricyclic Antidepress Not Detected (NotDetected) Ur Phencyclidine Scrn Not Detected (NotDetected) Ur Amphetamines Screen Detected H (NotDetected) U Methamphetamines Scrn Detected H (NotDetected) U Benzodiazepines Scrn Not Detected (NotDetected) Urine Cocaine Screen Not Detected (NotDetected) U Marijuana (THC) Screen Detected H (NotDetected) Coronavirus (PCR) Not Detected (Not Detectd) 03/06/20 Range/Units 12:45 WBC (3.8-10.6) k/uL RBC (4.30-5.90) m/uL Hgb (13.0-17.5) gm/dL Hct (39.0-53.0) % MCV (80.0-100.0) fL MCH (25.0-35.0) pg MCHC (31.0-37.0) g/dL RDW (11.5-15.5) % Plt Count (150-450) k/uL MPV Sodium 139 (137-145) mmol/L Potassium 4.3 (3.5-5.1) mmol/L Chloride 109 H (98-107) mmol/L Carbon Dioxide 26 (22-30) mmol/L Anion Gap 4 mmol/L BUN 9 (9-20) mg/dL Creatinine 1.20 (0.66-1.25) mg/dL Est GFR (CKD-EPI)AfAm 90 (>60 ml/min/1.73 sqM) Est GFR (CKD-EPI)NonAf 78 (>60 ml/min/1.73 sqM) Glucose 89 (74-99) mg/dL Calcium 9.0 (8.4-10.2) mg/dL Total Bilirubin 0.5 (0.2-1.3) mg/dL AST 25 (17-59) U/L ALT 30 (4-49) U/L Alkaline Phosphatase 76 (38-126) U/L Total Protein 7.1 (6.3-8.2) g/dL Albumin 3.9 (3.5-5.0) g/dL Urine Opiates Screen (NotDetected) Ur Oxycodone Screen (NotDetected) Urine Methadone Screen (NotDetected) Ur Propoxyphene Screen (NotDetected) Ur Barbiturates Screen (NotDetected) U Tricyclic Antidepress (NotDetected) Ur Phencyclidine Scrn (NotDetected) Ur Amphetamines Screen (NotDetected) U Methamphetamines Scrn (NotDetected) U Benzodiazepines Scrn (NotDetected) Urine Cocaine Screen (NotDetected) U Marijuana (THC) Screen (NotDetected) Coronavirus (PCR) (Not Detectd) Disposition Clinical Impression: Suicidal ideation, Adjustment reaction of adult life Disposition: ADMITTED IP TO THIS HOSP Condition: Fair Is patient prescribed a controlled substance at d/c from ED?: No Time of Disposition: 17:05
[2020-03-06 11:23] LABS: Amphetamine Screen,Urine Detected (NotDetected); Barbiturate Screen,Urine Not Detected (NotDetected); Benzodiazepines Screen,Urine Not Detected (NotDetected); Cocaine Screen,Urine Not Detected (NotDetected); Methadone Screen, Urine Not Detected (NotDetected); Opiate Screen,Urine Not Detected (NotDetected); Oxycodone Screen, Urine Not Detected (NotDetected); Phencyclidine Screen,Urine Not Detected (NotDetected); Tricyclic Antidepressant,Urine Not Detected (NotDetected); Urn Cannabinoid Scrn Detected (NotDetected)
--- NOTE | 2020-03-06 11:48 | XR ---
EXAMINATION TYPE: XR chest 2V DATE OF EXAM: 03/06/2020 COMPARISON: Prior chest x-ray 10/01/2018 HISTORY: Cough TECHNIQUE: Frontal and lateral views of the chest are obtained. FINDINGS: There is no focal air space opacity, pleural effusion, or pneumothorax seen. The cardiac silhouette size is within normal limits. The osseous structures are intact. IMPRESSION: No acute cardiopulmonary process.
[2020-03-06 12:59] LABS: HCT 44.1 % (39.0-53.0); HGB 15.5 gm/dL (13.0-17.5); MCH 30.4 pg (25.0-35.0); MCHC 35.1 g/dL (31.0-37.0); MCV 86.5 fL (80.0-100.0); Mean Platelet Volume 7.1; Platelet Count 182 k/uL (150-450); RDW 12.4 % (11.5-15.5); WBC 8.3 k/uL (3.8-10.6)
[2020-03-06 13:16] LABS: Albumin 3.9 g/dL (3.5-5.0); Potassium 4.3 mmol/L (3.5-5.1); Total Bilirubin 0.5 mg/dL (0.2-1.3); Total Protein 7.1 g/dL (6.3-8.2)
[2020-03-06] MEDS ORDERED: MAG HYDROX/AL HYDROX/SIMETH 30 ML CUP PO PRN (13:31)
[2020-03-06] MEDS ORDERED: ACETAMINOPHEN TAB 325 MG TAB PO PRN (13:31)
[2020-03-06] MEDS ORDERED: MAGNESIUM HYDROXIDE 2,400 MG/10 ML CUP PO PRN (13:31)
[2020-03-06] MEDS ORDERED: LORazepam 2 MG/ML INJ IM PRN (13:39)
[2020-03-06] MEDS: LORazepam 1 MG TAB PO PRN (17:32)
--- NOTE | 2020-03-06 23:13 | P.CONS ---
History of Present Illness - Reason for Consult Consult date: 03/06/20 - History of Present Illness Patient is a 35-year-old male with a PMH of methamphetamine abuse who presented to the emergency room with depression and suicidal ideation. The patient was admitted to the mental health unit where he was seen and evaluated. The patient reports that he had been using meth over the past few days, and was feeling down about his life and thereby decided to come to the emergency room. He reported that his last use of meth was 2 days ago. He also reported that he may have accidentally gotten some methamphetamine on his eye during his last use. Reported that it had happened previously and that it usually responds to water or saline flushes. He denied additional complaints. Denied visual changes. Denied IV pain. Denied headaches, fever, chills, nausea, vomiting, chest pain, shortness of breath or cough. Review of Systems Pertinent positives and negatives as discussed in HPI, a complete review of systems was performed and all other systems are negative. Past Medical History Past Medical History: No Reported History Additional Past Medical History / Comment(s): chronic back pain, cataracts History of Any Multi-Drug Resistant Organisms: None Reported Past Surgical History: Orthopedic Surgery Additional Past Surgical History / Comment(s): ORIF left arm, nasal surgery due to fracture, left jaw, bilateral cataract removal and intraocular lens implants. Past Anesthesia/Blood Transfusion Reactions: No Reported Reaction Past Psychological History: ADD/ADHD, Anxiety, Bipolar, Depression Smoking Status: Current every day smoker Past Alcohol Use History: Occasional Past Drug Use History: Cocaine, Marijuana, Methamphetamine - Past Family History Father Additional Family Medical History / Comment(s): Father is alive at age 59 with history of hypertension. Mother Additional Family Medical History / Comment(s): Mother is alive at age 61 with history of coronary artery disease status post CABG, CVA. Brother(s) Additional Family Medical History / Comment(s): Patient has 2 brothers and one has problems with kidney stones. Patient has 1 sister with no major medical problems. Patient has 1 daughter that is having problems with her heart. Medications and Allergies Home Medications Medication Instructions Recorded Confirmed Type ARIPiprazole [Abilify Maintena] 400 mg IM Q28D #1 syr 07/31/19 03/06/20 Rx Escitalopram Oxalate [Lexapro] 10 mg PO DAILY PRN 03/06/20 03/06/20 History Allergies Allergy/AdvReac Type Severity Reaction Status Date / Time No Known Allergies Allergy Verified 03/06/20 10:42 Physical Exam Vitals: Vital Signs Temp Pulse Pulse Resp BP BP Pulse Ox 03/06/20 16:34 97.7 F 03/06/20 15:17 98 03/06/20 15:00 98.7 F 81 18 136/76 03/06/20 13:55 98.7 F 81 18 136/76 98 03/06/20 10:40 98.7 F 81 18 117/79 97 Intake and Output 03/06/20 03/06/20 03/06/20 06:59 14:59 22:59 Other: Weight 134.065 kg 134.065 kg General: non toxic, no distress, appears at stated age, morbidly obese Derm: no unusual rashes/lesions no unusual ecchymoses, warm, dry Head: atraumatic, normocephalic, symmetric Eyes: EOMI, right eye conjunctival injection with small amounts of crusting, pupils equal round reactive to light ENT: Nose and ears atraumatic, no thrush, no pharyngeal erythema Neck: No thyromegaly, no cervical lymphadenopathy, trachea midline, supple Mouth: no lip lesion, mucus membranes moist Cardiovascular: S1S2 reg, no murmur, positive posterior tibial pulse bilateral, no edema, capillary refill less than 2 seconds Lungs: CTA bilateral, no rhonchi, no rales , no accessory muscle use Abdominal: soft, nontender to palpation, no guarding, no appreciable organomegaly, normal bowel sounds Ext: no gross muscle atrophy, muscle strength 5 out of 5 in all 4 extremities grossly, no contractures, Neuro: CN II-XI grossly intact, light touch intact all 4 extremities, finger to nose within normal limits, Psych: Alert, oriented, appropriate affect Results CBC & Chem 7: 03/06/20 12:45 03/06/20 12:45 Labs: Abnormal Lab Results - Last 24 Hours (Table) 03/06/20 03/06/20 Range/Units 10:56 12:45 Chloride 109 H (98-107) mmol/L Ur Amphetamines Screen Detected H (NotDetected) U Methamphetamines Scrn Detected H (NotDetected) U Marijuana (THC) Screen Detected H (NotDetected) Assessment and Plan Plan: Right eye conjunctival injection -Saline flushes for now -Patient reports that it has improved since yesterday -May consider antibacterial drops if fails to improve Methamphetamine abuse -Advised on the importance of cessation Depression with suicidal ideation -As per psychiatry Thank you for allowing us to participate in the care of this patient. We will follow peripherally. Do not hesitate to contact us with questions. Someone can be reached from the [facility] hospitalist group at all hours of the day at [phone].
[2020-03-07 03:10] LABS: Cholesterol 154 mg/dL (<200); HDL Cholesterol 29 mg/dL (40-60); LDL Cholesterol,Calculated 74 mg/dL (0-99); Triglycerides 255 mg/dL (<150)
[2020-03-07] MEDS: LORazepam 1 MG TAB PO PRN ×2 (07:51→17:08)
[2020-03-07] MEDS: NICOTINE 14MG/24HR PATCH TRANSDERM SCH (08:50)
--- NOTE | 2020-03-07 11:35 | P.HP ---
Psychiatric H&P - . H&P Date: 03/07/20 History & Physical: IDENTIFYING DATA: Zoe is a 35-year-old single male admitted to the psychiatric unit voluntarily with complaints of depression and suicidal ideation. HISTORY OF PRESENT ILLNESS: He told EPS nurse that he has been feeling increasingly depressed. He was thinking about drinking bleach and "the world is making him feel that the only relief he will get is by ." He is had multiple psychiatric hospitalizations. His last discharged from our unit in July 2019 with a diagnosis of bipolar disorder, anxiety disorder, methamphetamine use, cocaine abuse, cannabis use and nicotine use. His discharge medications included Zoloft, Benadryl and Abilify Maintena He alleged that he might health discontinued all oral medication and is beginning to monthly injections of Abilify. He attributed depression due to multiple issues including the suicide of a cousin (his last admission was related to the suicide ) and the sudden of a cousin. However, I suspect that the reason for admission had was related to his legal problems. He was charged with his second count of domestic violence that was reduced to a domestic violence charge when he was transferred to mental health Court. One of the conditions of his probation is random drug tests. He was scheduled for a drug trust prior to admission and talked about trying to contact the testing agency to explain that he needed to be hospitalized as a reason for not showing up to his appointment. He plans to call his international first officer on the next business day. He admitted to daily use of methamphetamine. He alleges that he only smokes methamphetamine and denied a history of IV injection. He and friends purchase a "ball" (approximately 2 grams) of methamphetamine every day. He denied that he's been involved in activities that could result in legal problems. He denied that he experiences physical or psychological problems as result of methamphetamine use. As opposed to friends who have adverse effects from methamphetamine, he experiences sense of calm and relaxation. He attributes this difference to a history of ADHD. He talked about the methamphetamine fixing some part of his brain and correcting his "dopamine." He denied the use of other drugs with the exception of marijuana. His UDS was positive for amphetamine, methamphetamine and marijuana. His breath alcohol level was 0. He currently complains of methamphetamine withdrawal symptoms including depression, anxiety, fatigue and lack of motivation. He perseverated about methamphetamine withdrawal causing abdominal cramping that he described in a dramatic manner. He insists is not obtaining some medication that could relieve the cramping if it were to occur. He denied auditory, visual or olfactory hallucinations, ideas reference, thought insertion, thought broadcasting or thought control. He denied experiencing periods of elevated mood or sustained irritability prior to admission. PAST PSYCHIATRIC HISTORY: This is his seventh admission to the psychiatric unit. He has a diagnosis of a bipolar illness, cocaine use disorder and methamphetamine use disorder. He is active with [facility] and is currently under his probation of mental health Court. He alleges only medication is Abilify Maintena 400 mg IM monthly. PAST MEDICAL HISTORY: He has no major medical illnesses ALLERGIES: NO KNOWN DRUG ALLERGIES SUBSTANCE USE HISTORY: He alleged that he is been using methamphetamine for 8 months. He expressed an interest in substance abuse treatment. Current record he has a history of marijuana and cocaine use disorder. He's been using avril jayda since he was 16 years old and cocaine since he was 17. FAMILY PSYCHIATRIC/SUBSTANCE USE HISTORY: His father and paternal aunt have unknown psychiatric disorder. A cousin and a paternal great uncle by suicide. LEGAL HISTORY: He is currently on probation for domestic violence and supervised on the mental health Court. SOCIAL HISTORY: Years born and raised in [facility]. After his last charge discharge and return to his apartment he lives alone. He receives Social Security. He worked for 3 months [employer] but was released 3 weeks ago for non-attendance. MENTAL STATUS EXAM: He presented as an obese 35-year-old -German male who was pleasant on approach. He made eye contact and attended the interview. He had a red right eye and a long he has laceration on his left forearm but no other distinguishing features. He had a flat facial expression. He is alert and oriented to person, place and time. He had psychomotor retardation but no abnormal involuntary movements. Hisspeech was spontaneous with normal rate and rhythm. His affect was depressed and not reactive. He expressed suicidal thoughts and wishes. Denied homicidal ideation. He did not express feelings of hopelessness, helplessness and worthlessness. He ruminated about withdrawal symptoms and perseverated about methamphetamine withdrawal including dramatically severe abdominal cramping. He did not express paranoid ideation or delusional thoughts. His thinking was concrete but his associations were coherent, logical and goal directed. He denied hallucinations and did not appear to be responding to internal stimuli. Global impression of the left is average. His workers (for treatment. STRENGTHS: His goal health, stable housing, stable income, supportive family WEAKNESSES: Legal problems, substance use problems IMPRESSION: He is 35-year-old single after German male who was a history of bipolar illness. He presented to unit voluntarily with complaints of depression, suicidal ideation and desire to stop using methamphetamine. He attributes the depression and suicidal ideation to family losses but I suspect is related to his legal problems and requirement for abstinence. He is currently experiencing amphetamine withdrawal. He should be treated inpatient basis with Initial psychopharmacology and multimodal therapy. PRINCIPLE DIAGNOSIS: Methamphetamine use disorder severe, methamphetamine withdrawal, bipolar disorder most recent episode depressed, legal problems RECOMMENDATION: Admitted to the psychiatric unit. Safety precautions. Consult medicine for initial physical exam and medical history. bench worker completed initial psychosocial assessment coordinate discharge and aftercare. Coordinate discharge and follow-up with [facility]. Continue Abilify 400 mg IM monthly. Ativan and/or Haldol for anxiety, agitation or aggression. Treat methamphetamine withdrawal symptomatically. Encourage participation in therap eutic groups and activities. Evaluate clinical status response to treatment daily basis. Allergies Allergy/AdvReac Type Severity Reaction Status Date / Time No Known Allergies Allergy Verified 03/06/20 10:42 Vital Signs Temp 97.3 F L 03/07/20 06:52 Pulse 68 03/07/20 06:52 Resp 16 03/07/20 06:52 BP 153/62 03/07/20 06:52 Pulse Ox 98 03/06/20 15:17 Intake & Output 03/06/20 03/07/20 03/07/20 18:59 06:59 18:59 Weight 134.065 kg Laboratory Last Values WBC 8.3 k/uL (3.8-10.6) 03/06/20 12:45 RBC 5.10 m/uL (4.30-5.90) 03/06/20 12:45 Hgb 15.5 gm/dL (13.0-17.5) 03/06/20 12:45 Hct 44.1 % (39.0-53.0) 03/06/20 12:45 MCV 86.5 fL (80.0-100.0) 03/06/20 12:45 MCH 30.4 pg (25.0-35.0) 03/06/20 12:45 MCHC 35.1 g/dL (31.0-37.0) 03/06/20 12:45 RDW 12.4 % (11.5-15.5) 03/06/20 12:45 Plt Count 182 k/uL (150-450) 03/06/20 12:45 MPV 7.1 03/06/20 12:45 Sodium 139 mmol/L (137-145) 03/06/20 12:45 Potassium 4.3 mmol/L (3.5-5.1) 03/06/20 12:45 Chloride 109 mmol/L (98-107) H 03/06/20 12:45 Carbon Dioxide 26 mmol/L (22-30) 03/06/20 12:45 Anion Gap 4 mmol/L 03/06/20 12:45 BUN 9 mg/dL (9-20) 03/06/20 12:45 Creatinine 1.20 mg/dL (0.66-1.25) 03/06/20 12:45 Est GFR (CKD-EPI)AfAm 90 (>60 ml/min/1.73 sqM) 03/06/20 12:45 Est GFR (CKD-EPI)NonAf 78 (>60 ml/min/1.73 sqM) 03/06/20 12:45 Glucose 89 mg/dL (74-99) 03/06/20 12:45 Calcium 9.0 mg/dL (8.4-10.2) 03/06/20 12:45 Total Bilirubin 0.5 mg/dL (0.2-1.3) 03/06/20 12:45 AST 25 U/L (17-59) 03/06/20 12:45 ALT 30 U/L (4-49) 03/06/20 12:45 Alkaline Phosphatase 76 U/L (38-126) 03/06/20 12:45 Total Protein 7.1 g/dL (6.3-8.2) 03/06/20 12:45 Albumin 3.9 g/dL (3.5-5.0) 03/06/20 12:45 Triglycerides 255 mg/dL (<150) H 03/06/20 12:45 Cholesterol 154 mg/dL (<200) 03/06/20 12:45 LDL Cholesterol, Calc 74 mg/dL (0-99) 03/06/20 12:45 HDL Cholesterol 29 mg/dL (40-60) L 03/06/20 12:45 Urine Opiates Screen Not Detected (NotDetected) 03/06/20 10:56 Ur Oxycodone Screen Not Detected (NotDetected) 03/06/20 10:56 Urine Methadone Screen Not Detected (NotDetected) 03/06/20 10:56 Ur Propoxyphene Screen Not Detected (NotDetected) 03/06/20 10:56 Ur Barbiturates Screen Not Detected (NotDetected) 03/06/20 10:56 U Tricyclic Antidepress Not Detected (NotDetected) 03/06/20 10:56 Ur Phencyclidine Scrn Not Detected (NotDetected) 03/06/20 10:56 Ur Amphetamines Screen Detected (NotDetected) H 03/06/20 10:56 U Methamphetamines Scrn Detected (NotDetected) H 03/06/20 10:56 U Benzodiazepines Scrn Not Detected (NotDetected) 03/06/20 10:56 Urine Cocaine Screen Not Detected (NotDetected) 03/06/20 10:56 U Marijuana (THC) Screen Detected (NotDetected) H 03/06/20 10:56 Coronavirus (PCR) Not Detected (Not Detectd) 03/06/20 12:45 03/07/20 11:05
[2020-03-07] MEDS ORDERED: DIPHENOX-ATROP 2.5-0.025 MG 1 EACH TAB PO PRN (11:36)
[2020-03-07] MEDS: ARTIFICIAL TEARS-HYPROMELLOSE DROPS 15 ML BTL BOTH EYES PRN (14:06)
[2020-03-07 14:36] LABS: Hemoglobin A1C 5.6 % (4.0-6.0)
[2020-03-07] MEDS ORDERED: WATER FOR INJECTION, STERILE 10 ML IV ONE (18:06)
[2020-03-07] MEDS ORDERED: ZIPRASIDONE 20 MG VIAL IM ONE (18:06)
[2020-03-07] MEDS: ZIPRASIDONE 20 MG VIAL IM PRN ×2 (18:08→18:32)
[2020-03-07] MEDS: ERYTHROMYCIN 5 MG/GM OPHTH OINT 3.5 GM TUBE RIGHT EYE SCH ×2 (18:27→23:22)
[2020-03-08] MEDS: LORazepam 1 MG TAB PO PRN ×2 (05:30→17:00)
[2020-03-08] MEDS: ERYTHROMYCIN 5 MG/GM OPHTH OINT 3.5 GM TUBE RIGHT EYE SCH ×4 (05:30→23:00)
[2020-03-08] MEDS: ARTIFICIAL TEARS-HYPROMELLOSE DROPS 15 ML BTL BOTH EYES PRN (05:30)
[2020-03-08] MEDS: NICOTINE 14MG/24HR PATCH TRANSDERM SCH (09:06)
[2020-03-08] MEDS: ZIPRASIDONE 20 MG CAP PO PRN (09:16)
--- NOTE | 2020-03-08 10:57 | P.PN ---
Progress Note - Text Progress Note Date: 03/08/20 Clinical Problems: Methamphetamine use disorder severe, methamphetamine withdrawal, bipolar disorder most recent episode depressed, legal problems Interim history: I reviewed the medical record, interviewed the patient and discuss his treatment and treatment plan during team meeting. He is on contact isolation due to suspected infectious conjunctivitis. He is compliant with erythromycin eye drops. He perseverated about abdominal distress. Although he is never experience methamphetamine withdrawal "friends" I told him that the most distressing system is abdominal cramping. Again, he describes the abdominal cramping in a dramatic manner gesturing with his hands as though he were squeezing a towel. He reports moderate relief with Lomotil. His primary withdrawal symptoms are fatigue and listlessness. He spent much of the day yesterday sleeping either in his room or in the common areas. He also remains concerned about his legal problems. He expressed an interest than residential substance abuse treatment. Late yesterday afternoon he became acutely agitated and received Geodon 20 mg IM. He slept 2 hours last night. He does not attend therapeutic groups and activities. Mental status exam: He presented as an obese 35-year-old -[place] male was pleasant on approach. He made eye contact and attended the interview. He is right I remains injected. He has psychomotor retardation but no abnormal movements. Her speech was spontaneous with decreased rate and rhythm. His affect was blunted but appropriate. He denied suicidal ideation, wishes or homicidal ideation. He expressed feelings of helplessness over his legal and substance abuse issues but denied feeling hopeless or worthless. He did not express ideas reference, paranoid ideation or delusions. Her thinking was concrete but his associations were coherent, logical and goal directed. He denied hallucinations didn't appear to be responding to internal stimuli. Assessment: He is experiencing amphetamine withdrawal symptoms. She remains concerned over his legal problems but is not perseverating about suicidal thoughts or plans. He would benefit from substance abuse treatment. Plan: Continue inpatient treatment. Safety precautions. Continue room as an ophthalmic ointment to the right eye every 6 hours and artificial tears 4 times a day. Continue Abilify maintaining a 400 mg IM every 28 days (next injection is due to 12/08/2020). Continue Ativan 1 mg by mouth IM and Geodon 20 mg by mouth/IM when necessary for anxiety, agitation or aggression. Social work to permit discharge and aftercare. Encourage participation in therapeutic groups and activities. Evaluate clinical status response to treatment on a daily basis.
[2020-03-09] MEDS: LORazepam 1 MG TAB PO PRN ×3 (04:34→19:24)
[2020-03-09] MEDS: ERYTHROMYCIN 5 MG/GM OPHTH OINT 3.5 GM TUBE RIGHT EYE SCH ×3 (06:44→17:25)
[2020-03-09] MEDS: NICOTINE 14MG/24HR PATCH TRANSDERM SCH (07:47)
--- NOTE | 2020-03-09 11:42 | P.PN ---
Progress Note - Text Progress Note Date: 03/09/20 Clinical Problems: Methamphetamine use disorder severe, methamphetamine withdrawal, bipolar disorder most recent episode depressed, legal problems Interim history: I reviewed the medical record, interviewed the patient and discuss his treatment and treatment plan during team meeting. He is on contact isolation due to suspected infectious conjunctivitis. He is compliant with erythromycin eye drops. He complained of continued fatigue and sleepiness. He was less preoccupied with abdominal distress. He feels depressed but denied thoughts of or suicide. He recognizes his substance use problems and is interested in substance abuse treatment. He completed an interview with [facility] this morning. He stated that if she is accepted he would be going to [place] for substance abuse treatment. He slept for the last night and attended to therapeutic groups. He is req uesting when necessary Ativan for some complaints of subjective anxiety. Mental status exam: He presented as an obese 35-year-old -[place] male was pleasant on approach. He made eye contact and attended the interview. He is right is injected. He has psychomotor retardation but no abnormal movements. Her speech was spontaneous with decreased rate and rhythm. His affect was blunted but appropriate. He denied suicidal ideation, wishes or homicidal ideation. He he denied feeling hopeless, helpless or worthless; in fact he is hopeful about substance abuse treatment. He did not express ideas reference, paranoid ideation or delusions. Her thinking was concrete but his associations were coherent, logical and goal directed. He denied hallucinations didn't appear to be responding to internal stimuli. Assessment: He experiencing mild to moderate stimulant withdrawal symptoms. Plan: Continue inpatient treatment. Safety precautions. Continue Erythromycin ophthalmic ointment to the right eye every 6 hours and artificial tears 4 times a day. Continue Abilify maintaining a 400 mg IM every 28 days (next injection is due to 12/08/2020). Continue Ativan 1 mg by mouth IM and Geodon 20 mg by mouth/IM when necessary for anxiety, agitation or aggression. Discharge when we have admission date for substance abuse treatment. Encourage participation in therapeutic groups and activities. Evaluate clinical status response to treatment on a daily basis.
[2020-03-10] MEDS: ERYTHROMYCIN 5 MG/GM OPHTH OINT 3.5 GM TUBE RIGHT EYE SCH ×3 (00:58→12:45)
[2020-03-10 07:08] VITALS: RESP 16; TEMP 98
[2020-03-10] MEDS: LORazepam 1 MG TAB PO PRN (07:50)
[2020-03-10 07:51] VITALS: BP 129/72; PULSE 95
[2020-03-10] MEDS ORDERED: LORazepam 0.5 MG TAB PO SCH (09:00)
[2020-03-10] MEDS: ZIPRASIDONE 20 MG CAP PO PRN (09:00)
--- NOTE | 2020-03-10 11:10 | P.DS ---
Providers Date of admission: 03/06/20 13:27 Attending physician: Caden Hubbard MD Consults: 03/06/20 13:31 Consult Physician Routine Consulting Provider: Roshan Physician Consult Reason/Comments: medical management Do you want consulting provider notified?: Yes Primary care physician: Stated None - Discharge Diagnosis(es) (1) Methamphetamine use disorder, severe, dependence Current Visit: Yes Status: Chronic Priority: High (2) Methamphetamine-induced depressive disorder Current Visit: Yes Status: Acute Priority: Medium (3) Withdrawal from methamphetamine Current Visit: Yes Status: Acute Priority: Low (4) History of bipolar disorder Current Visit: Yes Status: Chronic Priority: Medium (5) Legal problem Current Visit: Yes Status: Acute Priority: Medium Hospital Course: HISTORY: Zoe is a 35-year-old single male admitted to the psychiatric unit voluntarily with complaints of depression and suicidal ideation. He told EPS nurse that he has been feeling increasingly depressed. He was thinking about drinking bleach and "the world is making him feel that the only relief he will get is by ." He is had multiple psychiatric hospitalizations. His last discharged from our unit in July 2019 with a diagnosis of bipolar disorder, anxiety disorder, methamphetamine use, cocaine abuse, cannabis use and nicotine use. His discharge medications included Zoloft, Benadryl and Abilify Maintena He alleged that he might health discontinued all oral medication and is beginning to monthly injections of Abilify. He attributed depression due to multiple issues including the suicide of a cousin (his last admission was related to the suicide ) and the sudden of a cousin. However, I suspect that the reason for admission had was related to his legal problems. He was charged with his second count of domestic violence that was reduced to a domestic violence charge when he was transferred to mental health Court. One of the conditions of his probation is random drug tests. He was scheduled for a drug trust prior to admission and talked about trying to contact the testing agency to explain that he needed to be hospitalized as a reason for not showing up to his appointment. He plans to call his telecommunications officer on the next business day. He admitted to daily use of methamphetamine. He alleges that he only smokes methamphetamine and denied a history of IV injection. He and friends purchase a "ball" (approximately 2 grams) of methamphetamine every day. He denied that he's been involved in activities that could result in legal problems. He denied that he experiences physical or psychological problems as result of methamphetamine use. As opposed to friends who have adverse effects from methamphetamine, he experiences sense of calm and relaxation. He attributes this difference to a history of ADHD. He talked about the methamphetamine fi leonora some part of his brain and correcting his "dopamine." He denied the use of other drugs with the exception of marijuana. His UDS was positive for amphetamine, methamphetamine and marijuana. His breath alcohol level was 0. He currently complains of methamphetamine withdrawal symptoms including depression, anxiety, fatigue and lack of motivation. He perseverated about methamphetamine withdrawal causing abdominal cramping that he described in a dramatic manner. He insists is not obtaining some medication that could relieve the cramping if it were to occur. He denied auditory, visual or olfactory hallucinations, ideas reference, thought insertion, thought broadcasting or thought control. He denied experiencing periods of elevated mood or sustained irritability prior to admission. HOSPITAL COURSE: We admitted him to the psychiatric unit under care of this commercial underwriter. We provided a Biopsychosocial assessment. The computing consultant cloth presser completed initial physical exam and medical history and initially diagnosed a right conjunctival injection that did not improve with saline flushes. We placed him on contact the cautions of a presumed diagnosis of infectious conjunctivae as. We prescribed erythromycin ointment to the right eye every 6 hours. We continued Abilify maintaining a 400 mg IM every 28 days (his last injection was on 03/06/2020). He remained in bed during most of his hospitalization. He complained of fatigue, listlessness and abdominal distress. As the withdrawal symptoms abated. He became more involved in activities. His only concern about his legal problems and believes that coming to the hospital would not compromise his probation. He expressed no interest in residential substance abuse treatment. He completed an Access interview and was scheduled for admission to [facility] on 03/12/2020. MENTAL STATUS ON DISCHARGE: At time of discharge she presented as a casually groomed to obese [id number] male whose right eye was slightly i njected. He made eye contact and attended to interview. A bright facial expression. He was alert and oriented to person, place and time. He showed no abnormality of psychomotor activity. His speech was spontaneous with normal rate, rhythm and volume. Affect was bright and appropriate. He denied suicidal ideation or wishes. He denied homicidal ideation. He denied feeling hopeless, helpless or worthless. He is looking forward to participation in substance abuse treatment. He did not express ideas reference, paranoid ideation or delusional thoughts. His thinking was concrete but his associations were coherent, logical and goal directed. He denied hallucinations did not appear to be responding to internal stimuli. DISPOSITION: He returned to his former address. He has a admission to [facility] scheduled for 03/12/2020. Continue with Abilify Maintaina 400 mg IM monthly. Patient Condition at Discharge: Stable Plan - Discharge Summary Discharge Rx Participant: No New Discharge Prescriptions: No Action ARIPiprazole [Abilify Maintena] 400 mg IM Q28D #1 syr Escitalopram Oxalate [Lexapro] 10 mg PO DAILY PRN PRN Reason: depression Discharge Medication List ARIPiprazole [Abilify Maintena] 400 mg IM Q28D #1 syr 07/31/19 [Rx] Escitalopram Oxalate [Lexapro] 10 mg PO DAILY PRN 03/06/20 [History] Follow up Appointment(s)/Referral(s): [facility] [Outside] - 03/12/20 1:15 [facility] - 1 Week Patient Instructions/Handouts: How to Stop Smoking (DC) Activity/Diet/Wound Care/Special Instructions: Activity and diet as tolerated. Avoid the use of street drugs and alcohol. Take all medications as prescribed. When you are in need of refills on your medications please contact your medical provider and/or outpatient psychiatrist to have this done. Please go to scheduled outpatient appointment for aftercare treatment. If symptoms return or become worse, call the crisis line at and/or go to the nearest emergency room for evaluation.
== END 2020-03-10 12:39 | disposition home or self-care (01) | DRG 897 ==
LOC: EC 10:35 → 3MHU 13:27
PROVIDERS: ADMIT Psychiatry & Neurology Psychiatry; ATTEND Psychiatry & Neurology Psychiatry
DX: F15.24 Other stimulant dependence with stimulant-induced mood disorder (principal); F31.30 Bipolar disorder, current episode depressed, mild or moderate severity, unspecified; R45.851 Suicidal ideations; F12.90 Cannabis use, unspecified, uncomplicated; F14.10 Cocaine abuse, uncomplicated; F15.23 Other stimulant dependence with withdrawal; F17.200 Nicotine dependence, unspecified, uncomplicated; F43.22 Adjustment disorder with anxiety; Z65.3 Problems related to other legal circumstances; Z78.9 Other specified health status; Z79.899 Other long term (current) drug therapy; Z20.822 Contact with and (suspected) exposure to COVID-19
CPT/HCPCS: 36415; 71046; 80053; 80061; 80306; 82075; 83036; 85027; 87635; 99285

== ENCOUNTER 2020-05-02 18:26 | Emergency (ER) | payer OTHER ==
[2020-05-02] MEDS ORDERED: HYDROmorphone 1 MG/ML 1 ML SYRINGE IVP STA (18:48)
[2020-05-02] MEDS ORDERED: DIAZEPAM 5 MG/ML 2 ML INJ IVP STA (18:50)
--- NOTE | 2020-05-02 19:04 | ED ---
Back Pain HPI - General Chief Complaint: Back Pain/Injury Stated Complaint: Lower Back pain Time Seen by Provider: 05/02/20 18:33 Source: patient, RN notes reviewed Limitations: no limitations - History of Present Illness Initial Comments: Patient is a 35 she'll male that presents to emergency department stating that he is having lower back spasms. He noted that just this morning and low back cervices up and felt something moving around in there. He noted that he was taking his dad 20 mg Flexeril with no relief. He noted the pain is a 10 out of 10 constant. She denied any weakness numbness tingling decreased sensation in his low back or down his legs. He denied any chest pain shortness of breath headache nausea vomiting diarrhea constipation ladder or bowel incontinence. - Related Data Previous Rx's Medication Instructions Recorded ARIPiprazole [Abilify Maintena] 400 mg IM Q28D #1 syr 07/31/19 Artificial Tears-Hypromellose 2 drops BOTH EYES QID PRN 28 Days 03/10/20 [Artificial Tear Drops] bottle Erythromycin Ophth Oint [Romycin 1 applic RIGHT EYE Q6HR 28 Days 03/10/20 Ophth Oint] applic Cyclobenzaprine [Flexeril] 10 mg PO TID 30 Days #90 tab 05/02/20 Ibuprofen [Motrin] 800 mg PO Q6HR #30 tab 05/02/20 Allergies Allergy/AdvReac Type Severity Reaction Status Date / Time tramadol Allergy Unknown Verified 05/02/20 18:32 Review of Systems ROS Statement: Those systems with pertinent positive or pertinent negative responses have been documented in the HPI. ROS Other: All systems not noted in ROS Statement are negative. Past Medical History Past Medical History: No Reported History Additional Past Medical History / Comment(s): chronic back pain, cataracts History of Any Multi-Drug Resistant Organisms: None Reported Past Surgical History: Orthopedic Surgery Additional Past Surgical History / Comment(s): ORIF left arm, nasal surgery due to fracture, left jaw, bilateral cataract removal and intraocular lens implants. Past Anesthesia/Blood Transfusion Reactions: No Reported Reaction Past Psychological History: ADD/ADHD, Anxiety, Bipolar, Depression Smoking Status: Current every day smoker Past Alcohol Use History: Occasional Past Drug Use History: Cocaine, Marijuana, Methamphetamine - Past Family History Father Additional Family Medical History / Comment(s): Father is alive at age 59 with history of hypertension. Mother Additional Family Medical History / Comment(s): Mother is alive at age 61 with history of coronary artery disease status post CABG, CVA. Brother(s) Additional Family Medical History / Comment(s): Patient has 2 brothers and one has problems with kidney stones. Patient has 1 sister with no major medical problems. Patient has 1 daughter that is having problems with her heart. General Exam Limitations: no limitations General appearance: alert, in no apparent distress, obese Head exam: Present: atraumatic, normocephalic, normal inspection Eye exam: Present: normal appearance, PERRL, EOMI. Absent: scleral icterus, conjunctival injection, periorbital swelling ENT exam: Present: normal exam, mucous membranes moist Neck exam: Present: normal inspection. Absent: tenderness, meningismus, lymphadenopathy Respiratory exam: Present: normal lung sounds bilaterally. Absent: respiratory distress, wheezes, rales, rhonchi, stridor Cardiovascular Exam: Present: regular rate, normal rhythm, normal heart sounds. Absent: systolic murmur, diastolic murmur, rubs, gallop, clicks GI/Abdominal exam: Present: soft, normal bowel sounds. Absent: distended, tenderness, guarding, rebound, rigid Extremities exam: Present: normal inspection, full ROM, normal capillary refill. Absent: tenderness, pedal edema, joint swelling, calf tenderness Back exam: Present: normal inspection Neurological exam: Present: alert, oriented X3, CN II-XII intact Psychiatric exam: Present: normal affect, normal mood Skin exam: Present: warm, dry, intact, normal color. Absent: rash Course Vital Signs 05/02/20 05/02/20 18:28 20:05 Temperature 98.2 F Pulse Rate 103 H 78 Respiratory 18 20 Rate Blood Pressure 112/57 124/68 O2 Sat by Pulse 100 98 Oximetry Medical Decision Making - Medical Decision Making 35 she'll male complaining of lower back spasms. Lumbar spine x-ray, 5 mg of Valium, 1 mg of Dilaudid, basic labs ordered. X-ray negative, labs unremarkable. Case discussed with Dr. Rojo, patient to discharge home. - Lab Data Result diagrams: 05/02/20 19:07 05/02/20 19:07 Lab Results 03/14/21 03/14/21 03/14/21 Range/Units 19:07 19:07 19:07 WBC 10.0 (3.8-10.6) k/uL RBC 5.09 (4.30-5.90) m/uL Hgb 14.7 (13.0-17.5) gm/dL Hct 45.0 (39.0-53.0) % MCV 88.5 (80.0-100.0) fL MCH 29.0 (25.0-35.0) pg MCHC 32.7 (31.0-37.0) g/dL RDW 13.2 (11.5-15.5) % Plt Count 234 (150-450) k/uL MPV 8.0 Neutrophils % 57 % Lymphocytes % 29 % Monocytes % 8 % Eosinophils % 3 % Basophils % 1 % Neutrophils # 5.7 (1.3-7.7) k/uL Lymphocytes # 2.9 (1.0-4.8) k/uL Monocytes # 0.8 (0-1.0) k/uL Eosinophils # 0.3 (0-0.7) k/uL Basophils # 0.1 (0-0.2) k/uL Sodium 139 (137-145) mmol/L Potassium 4.2 (3.5-5.1) mmol/L Chloride 106 (98-107) mmol/L Carbon Dioxide 26 (22-30) mmol/L Anion Gap 7 mmol/L BUN 21 H (9-20) mg/dL Creatinine 1.30 H (0.66-1.25) mg/dL Est GFR (CKD-EPI)AfAm 81 (>60 ml/min/1.73 sqM) Est GFR (CKD-EPI)NonAf 70 (>60 ml/min/1.73 sqM) Glucose 84 (74-99) mg/dL Calcium 9.1 (8.4-10.2) mg/dL Total Bilirubin 0.5 (0.2-1.3) mg/dL AST 35 (17-59) U/L ALT 51 H (4-49) U/L Alkaline Phosphatase 70 (38-126) U/L Total Protein 7.2 (6.3-8.2) g/dL Albumin 4.1 (3.5-5.0) g/dL Urine Color Yellow Urine Appearance Clear (Clear) Urine pH 5.5 (5.0-8.0) Ur Specific [place] 1.023 (1.001-1.035) Urine Protein Trace H (Negative) Urine Glucose (UA) Negative (Negative) Urine Ketones Negative (Negative) Urine Blood Negative (Negative) Urine Nitrite Negative (Negative) Urine Bilirubin Negative (Negative) Urine Urobilinogen <2.0 (<2.0) mg/dL Ur Leukocyte Esterase Negative (Negative) - Radiology Data Radiology results: report reviewed, image reviewed Lumbar spine x-ray: Normal lumbar spine. Disposition Clinical Impression: Back spasm Disposition: HOME SELF-CARE Condition: Stable Instructions (If sedation given, give patient instructions): Acute Low Back Pa in (ED) Additional Instructions: Please return to the Emergency Department if symptoms worsen or any other concerns. Follow-up with primary care as soon as possible. Take prescription medications as prescribed. Can alternate between Tylenol Motrin every several hours for pain control. Avoid any shortness activity. Prescriptions: Cyclobenzaprine [Flexeril] 10 mg PO TID 30 Days #90 tab Ibuprofen [Motrin] 800 mg PO Q6HR #30 tab Is patient prescribed a controlled substance at d/c from ED?: Yes When asked, does pt state using other controlled substances?: No If prescribed controlled substance>3 days was MAPS reviewed?: Prescribed <3 Days If opioid is for acute pain is fill amount 7 days or less?: Yes Referrals: None,Stated [Primary Care Provider] - 1-2 days Time of Disposition: 20:26
[2020-05-02 19:22] LABS: Appearance,Urine Clear (Clear); Bilirubin,Urine Negative (Negative); Blood,Urine Negative (Negative); Color,Urine Yellow; Glucose,Urine (UA) Negative (Negative); Ketones,Urine Negative (Negative); Leukocyte Esterase,Urine Negative (Negative); Nitrite,Urine Negative (Negative); PH, Urine 5.5 (5.0-8.0); Protein,Urine Trace (Negative); Specific Gravity,Urine 1.023 (1.001-1.035); Urobilinogen,Urine <2.0 mg/dL (<2.0)
--- NOTE | 2020-05-02 19:27 | XR ---
EXAMINATION TYPE: XR lumbar spine 2 or 3V DATE OF EXAM: 05/02/2020 COMPARISON: NONE HISTORY: Pain TECHNIQUE: 3 views FINDINGS: Lumbar vertebra have normal spacing and alignment. Posterior elements are intact. Sacroilia c joints are normal. IMPRESSION: Normal lumbar spine exam.
[2020-05-02 20:06] VITALS: RESP 20
[2020-05-02 20:07] LABS: Basophils # (A) 0.1 k/uL (0-0.2); Basophils % (A) 1 %; Eosinophils # (A) 0.3 k/uL (0-0.7); Eosinophils % (A) 3 %; HGB 14.7 gm/dL (13.0-17.5); Lymphocytes # (A) 2.9 k/uL (1.0-4.8); Lymphocytes % (A) 29 %; MCHC 32.7 g/dL (31.0-37.0); MCV 88.5 fL (80.0-100.0); Monocytes # (A) 0.8 k/uL (0-1.0); Monocytes % (A) 8 %; Neutrophils # (A) 5.7 k/uL (1.3-7.7); Neutrophils % (A) 57 %; Platelet Count 234 k/uL (150-450); RBC 5.09 m/uL (4.30-5.90); RDW 13.2 % (11.5-15.5)
[2020-05-02 20:13] LABS: Albumin 4.1 g/dL (3.5-5.0); Calcium 9.1 mg/dL (8.4-10.2); Potassium 4.2 mmol/L (3.5-5.1); Total Bilirubin 0.5 mg/dL (0.2-1.3); Total Protein 7.2 g/dL (6.3-8.2)
[2020-05-02] MEDS ORDERED: ACET/COD 300 MG/30 MG STARTER PACK 6 TAB BTL PO STA (20:24)
[2020-05-02 20:41] VITALS: BP 125/77; PULSE 88; TEMP 98.1
== END 2020-05-02 20:41 | disposition home or self-care (01) ==
LOC: EC 18:26
DX: M62.830 Muscle spasm of back (principal); F17.200 Nicotine dependence, unspecified, uncomplicated; Z88.5 Allergy status to narcotic agent; Z98.42 Cataract extraction status, left eye; Z98.41 Cataract extraction status, right eye; Z96.1 Presence of intraocular lens
CPT/HCPCS: 36415; 80053; 85025; 81003; 72100; 99283; 96374; 96375; J3360; J1170

== ENCOUNTER 2020-05-09 20:40 | Emergency (ER) | payer OTHER ==
[2020-05-09 20:44] VITALS: BP 133/84; PULSE 95; RESP 20; TEMP 98.1
--- NOTE | 2020-05-09 21:03 | ED ---
General Adult HPI - General Chief complaint: Back Pain/Injury Stated complaint: Lower Back Pain Time Seen by Provider: 05/09/20 20:49 Source: patient Mode of arrival: ambulatory Limitations: no limitations - History of Present Illness Initial comments: Patient presents to the ED complaining of having "burning" right lumbar back pain for the past 8 days or so. Patient states that his pain began while he was at a cookout, and he states that he was seen in the ED for this pain 7 days ago. Patient states that he was told that he was having muscle spasms at that time. Patient had a negative UA and negative lumbar spine x-rays obtained at that time. Patient was started on Flexeril for management of his pain at that time, and he states that it has not been helping. Patient states that his pain is worse with movement and changes in position. Patient denies fall or direct back trauma, fever or chills, leg pain/numbness/weakness, incontinence or urinary retention, chest pain, dyspnea, dizziness, abdominal pain, nausea or vomiting, dysuria/hematuria/urinary frequency/urinary symptoms, or any other symptoms or complaints. - Related Data Previous Rx's Medication Instructions Recorded ARIPiprazole [Abilify Maintena] 400 mg IM Q28D #1 syr 07/31/19 Artificial Tears-Hypromellose 2 drops BOTH EYES QID PRN 28 Days 03/10/20 [Artificial Tear Drops] bottle Erythromycin Ophth Oint [Romycin 1 applic RIGHT EYE Q6HR 28 Days 03/10/20 Ophth Oint] applic Cyclobenzaprine [Flexeril] 10 mg PO TID 30 Days #90 tab 05/02/20 Ibuprofen [Motrin] 800 mg PO Q6HR #30 tab 05/02/20 methylPREDNISolone Dose Pack 24 mg PO DAILY #1 tab 05/09/20 [Medrol Dose Pack] Allergies Allergy/AdvReac Type Severity Reaction Status Date / Time tramadol Allergy Unknown Verified 05/02/20 18:32 Review of Systems ROS Statement: Those systems with pertinent positive or pertinent negative responses have been documented in the HPI. ROS Other: All systems not noted in ROS Statement are negative. Past Medical History Past Medical History: No Reported History Additional Past Medical History / Comment(s): chronic back pain, cataracts History of Any Multi-Drug Resistant Organisms: None Reported Past Surgical History: Orthopedic Surgery Additional Past Surgical History / Comment(s): ORIF left arm, nasal surgery due to fracture, left jaw, bilateral cataract removal and intraocular lens implants. Past Anesthesia/Blood Transfusion Reactions: No Reported Reaction Past Psychological History: ADD/ADHD, Anxiety, Bipolar, Depression Smoking Status: Current every day smoker Past Alcohol Use History: Occasional Past Drug Use History: Cocaine, Marijuana, Methamphetamine - Past Family History Father Additional Family Medical History / Comment(s): Father is alive at age 59 with history of hypertension. Mother Additional Family Medical History / Comment(s): Mother is alive at age 61 with history of coronary artery disease status post CABG, CVA. Brother(s) Additional Family Medical History / Comment(s): Patient has 2 brothers and one has problems with kidney stones. Patient has 1 sister with no major medical problems. Patient has 1 daughter that is having problems with her heart. General Exam Limitations: no limitations General appearance: alert, in no apparent distress Head exam: Present: atraumatic, normocephalic Eye exam: Present: normal appearance, EOMI ENT exam: Present: mucous membranes moist Neck exam: Present: other (Trachea is in midline) Respiratory exam: Present: normal lung sounds bilaterally. Absent: respiratory distress, wheezes, rales, rhonchi, stridor Cardiovascular Exam: Present: regular rate, normal rhythm, normal heart sounds, other (Normal radial pulses bilaterally) GI/Abdominal exam: Present: soft, other (Obese abdomen). Absent: tenderness, guarding Extremities exam: Present: full ROM. Absent: tenderness Back exam: Present: normal inspection, other (Mild right lumbar tenderness). Absent: CVA tenderness (R), CVA tenderness (L) Neurological exam: Present: alert, oriented X3, other (Patient has no evidence of lower extremity neurological deficit or saddle anesthesia and examination). Absent: motor sensory deficit Psychiatric exam: Present: normal affect, normal mood Skin exam: Present: warm, dry, intact, normal color Course Vital Signs 05/09/20 20:41 Temperature 98.1 F Pulse Rate 95 Respiratory 20 Rate Blood Pressure 133/84 O2 Sat by Pulse 97 Oximetry Medical Decision Making - Medical Decision Making I suspect that the patient's pain is likely radicular or muscular in etiology. Patient reports that his pain is worse with changes in position. Patient denies having any urinary symptoms, he had a normal UA done last week. Patient also had negative lumbar spine x-rays obtained last week. Patient denies direct back trauma or fall. Patient has no lower extremity neurological deficits, and he denies urinary retention or incontinence. I do not suspect an emergent medical etiology of the patient's symptoms. Will discharge patient home with a prescription for a Medrol Dosepak and instructions to follow up closely with his primary care provider. Patient was also clearly explained return instructions. Patient feels comfortable with this plan. Disposition Clinical Impression: Lumbar back pain Disposition: HOME SELF-CARE Condition: Stable Instructions (If sedation given, give patient instructions): Acute Low Back Pain (ED) Additional Instructions: Return to the ER immediately should you develop new or worsening pain, trouble controlling your bladder or bowels, leg numbness or weakness, a fever, vomiting, shortness of breath, feeling dizzy or faint, or new or worsening symptoms. Follow up closely with your primary care provider. Prescriptions: methylPREDNISolone Dose Pack [Medrol Dose Pack] 24 mg PO DAILY #1 tab Is patient prescribed a controlled substance at d/c from ED?: No Referrals: None,Stated [Primary Care Provider] - 1-2 days Kady Restrepo MD [REFERRING] - 1-2 days Time of Disposition: 21:26
== END 2020-05-09 21:38 | disposition home or self-care (01) ==
LOC: EC 20:40
DX: M54.5 Low back pain (principal); F41.9 Anxiety disorder, unspecified; F32.9 Major depressive disorder, single episode, unspecified; F90.9 Attention-deficit hyperactivity disorder, unspecified type; F17.200 Nicotine dependence, unspecified, uncomplicated; F12.90 Cannabis use, unspecified, uncomplicated; F14.90 Cocaine use, unspecified, uncomplicated; Z88.5 Allergy status to narcotic agent; Z88.8 Allergy status to other drugs, medicaments and biological substances
CPT/HCPCS: 99283

== ENCOUNTER → 2020-11-18 | Outpatient (CLI) | payer OTHER ==
--- NOTE | 2020-11-18 12:06 | CONS ---
CONSULTATION DATE OF SERVICE: 11/18/2020 This 35-year-old gentleman has been evaluated in Sleep Center for possible obstructive sleep apnea-hypopnea syndrome. HISTORY OF PRESENT ILLNESS/SLEEP-WAKE EVALUATION: Patient's usual sleep schedule on weekdays is from midnight until 7 a.m. and on weekends from 1:30 a.m. until 7 a.m. He sometimes has problems with falling asleep, although no TV in bedroom. He usually sleeps on the side position. He snores extremely loudly and has witnessed episodes of stopped breathing during sleep. He wakes up from sleep 3 times with episodes of gasping for air and nocturia. No history of abnormal movements during the night, according to the patient. No history of hypnagogic hallucinations or sleep paralysis. During the day, the patient feels extremely sleepy. [place] Sleepiness Scale is in very high range at 22, and this is with Adderall 20 mg twice a day for ADD. He also drinks 1-2 liters of caffeinated beverages during the day. He takes 1-2 naps a day, usually in the afternoon time. He may see vivid dreams during naps. PAST MEDICAL HISTORY: Positive for ADD, asthma, back problems, mandibular fracture, nasal fracture. PAST SURGICAL HISTORY: Left arm surgery, jaw surgery. MEDICATIONS: 1. Adderall 20 mg twice a day. 2. [place]. SOCIAL HISTORY: Positive for smoking half pack a day for about 16 years. Alcohol consumption: None at the present time. FAMILY HISTORY: Positive for asthma, arthritis, diabetes. REVIEW OF SYSTEMS: No fevers. No double vision. No recent chest pain. No shortness of breath. No abdominal pain. No bleeding episodes. No blood in the urine. No seizure episodes. Multiple awakenings from sleep, significant excessive daytime sleepiness. No chest pain. No headaches at the present time. PHYSICAL EXAMINATION: GENERAL: A pleasant -[place] gentleman without distress. VITAL SIGNS: BP 137/85, HR around 100, RR 18, height 5 feet 7 inches, weight 346.2, body mass index 54.3, temperature 98.0, oxygen saturation at room air 97%. HEENT: PERRLA, EOMI, evaluation of oropharynx showed tongue protrudes midline. Extremely low position of soft palate; Mallampati IV. NECK: Supple, no JVD. Thyroid is not palpable. Extremely wide neck; 20 inches in circumference. LUNGS: Clear to percussion and to auscultation. Good air exchange. No wheezing or rhonchi. HEART: S1, S2 regular. No murmurs, gallops, or rubs. ABDOMEN: Obese. EXTREMITIES: No clubbing or cyanosis. SENIOR DATABASE PROGRAMMER: Awake, alert, and oriented X3. Cranial nerves 2 to 7 intact. There is no fasciculation or atrophy. noted. No focal deficits observed. IMPRESSION: 1. Loud snoring, witnessed episodes of stopped breathing during sleep, extremely low position of soft palate, Mallampati IV, wide neck, 20 inches in circumference, sleepiness; obstructive sleep apnea-hypopnea syndrome, probably I would expect in extremely severe range. 2. Morbid obesity; body mass index 54.3. 3. History of attention deficit disorder. 4. Extreme sleepiness with Paradise Sleepiness Scale 22, on 40 mg of Adderall a day, dictating necessity to include narcolepsy as possible additional diagnosis. 5. Back problems. 6. Status post left arm surgery. 7. Status post nasal fracture. 8. Status post jaw fracture. PLAN: 1. Polysomnography for evaluation of patient's breathing during sleep. 2. CPAP/BiPAP titration if sleep study confirms obstructive sleep apnea-hypopnea syndrome. 3. Preferable position during sleep on the side. 4. No driving if patient feels any sleepiness. 5. I will see patient for follow up visit to explain results of testing and following plan. 6. Aggressive losing weight problem. Thank you very much for referring this patient for consultation. Sincerely, Toby Hoang MD, PhD, FAASM Diplomat of [place] [employer] of Medical Specialties Sleep Medicine Board of [place] Board of Internal Medicine [employer] Operator of [facility] [place] MMODL / IJN: [id number] /
== END | disposition home or self-care (01) ==
LOC: SLEEP 10:37
PROVIDERS: ATTEND Internal Medicine
DX: G47.33 Obstructive sleep apnea (adult) (pediatric) (principal); E66.01 Morbid (severe) obesity due to excess calories; Z68.43 Body mass index [BMI] 50.0-59.9, adult; Z86.59 Personal history of other mental and behavioral disorders; Z98.890 Other specified postprocedural states
CPT/HCPCS: 99211

== ENCOUNTER → 2021-08-17 | Outpatient (CLI) | payer OTHER ==
--- NOTE | 2021-08-17 14:36 | P.PN ---
Subjective DATE: 08/17/2021 FOLLOW UP VISIT. Patient with obstructive sleep apnea hypopnea syndrome return to sleep center for follow-up visit. Recently patient had sleep study which documented obstructive sleep apnea hypopnea syndrome. I discussed results of sleep studies with patient in details. Patient was initiated on PAP therapy and today is first visit after treatment was started. Patient was not able to use PAP equipment because they are was message on the screen about leaking close and CPAP unit stopped. [place] sleepiness scale is extremely high 24. I checked information from PAP unit. PAP unit pressure 06-15 cm H2O. I started Pap unit with connected whole dose and it looks like Pap unit working properly. Patient did not bring connector from his mask to the whole dose so I was not able to check whole system. MEDICATIONS:1. Adderall 20 mg twice a day 2. [place] During physical exam: GENERAL: A pleasant patient without any distress. VITAL SIGNS: BP 123/85, HR 85, RR 16 , weight 368.2, temperature 97.2, oxygen saturation at room air 93% . HEENT: PERRLA, EOMI.low position of soft palate, Mallapati for . NECK: Supple. No JVD. LUNGS: Clear to percussion and to auscultation. Good air exchange. No wheezing or rhonchi. HEART: S1, S2 regular. ABDOMEN: Soft and nontender. Obese EXTREMITIES: No clubbing or cyanosis. FIRE EXTINGUISHER REPAIRER: Awake, alert, and oriented x3. No focal deficit. Impressions: 1. Severe obstructive sleep apnea-hypopnea syndrome. Patient was not able to start using of CPAP equipment because of the radius information on the screen about leaking hose and machine stopped working. 2. Morbid obesity. 3. History of attention deficit disorder. 4. Back problems. 5. Status post left arm surgery. 6. Status post nasal fracture. 7. Status post jaw fracture. Plan: Prescription to fix or if necessary to replace CPAP unit was send it to [facility]. 1. To use PAP equipment every night for the whole night. 2. To change air filter at least 1-2 times per month. 3. PAP unit should stay lower then position of the head. 4. Advised patient to remove all remaining water from humidifier canister daily and make it dry after each usage. Refill canister with fresh distilled water before each usage. 5. Sleep hygiene with regular time in bed for at least 8 hours. 6. Precautions related to driving. No driving if feel any sleepiness. 7. I will maintain prescription for PAP supplies including mask, tube, filters. 8. Follow up visit in one months. 9. Aggressive losing weight. Thank you very much for allowing me to participate in the management of your patient. Toby Hoang MD, PhD, FAASM. Diplomat of [place] [employer], Sleep Medicine Board by [place] [employer] Foundation Stage Teacher of [facility] [place]
== END | disposition home or self-care (01) ==
LOC: SLEEP 13:46
PROVIDERS: ATTEND Internal Medicine
DX: G47.33 Obstructive sleep apnea (adult) (pediatric) (principal); E66.01 Morbid (severe) obesity due to excess calories; F90.9 Attention-deficit hyperactivity disorder, unspecified type; Z98.890 Other specified postprocedural states; Z87.81 Personal history of (healed) traumatic fracture; Z99.89 Dependence on other enabling machines and devices; Z79.899 Other long term (current) drug therapy; Z88.5 Allergy status to narcotic agent

== ENCOUNTER 2021-10-17 07:12 | Emergency (ER) | payer OTHER ==
[2021-10-17] MEDS ORDERED: HYDROcodone/APAP 5-325MG 1 EACH TAB PO STA (07:38)
--- NOTE | 2021-10-17 07:42 | ED ---
General Adult HPI - General Chief complaint: Abdominal Pain Stated complaint: Side pain Time Seen by Provider: 10/17/21 07:14 Source: patient Mode of arrival: ambulatory Limitations: no limitations - History of Present Illness Initial comments: Dictation was produced using [employer] dictation software. please excuse any grammatical, word or spelling errors. Chief Complaint: 36-year-old male presents emergency department for left sided flank pain History of Present Illness: 36-year-old male presents emergency department for left-sided flank pain. Patient states that since yesterday he has been having a sharp pain in his left lower mid back. He states it hurts when he coughs or tries to take a really deep forceful inspiration. Denies any shortness of breath. Patient denies any history of DVT or blood clots. Patient denies any coughing. Patient denies that his symptoms are worse with a movements. The ROS documented in this emergency department record has been reviewed and confirmed by me. Those systems with pertinent positive or negative responses have been documented in the HPI. All other systems are other negative and/or noncontributory. PHYSICAL EXAM: General Impression: Alert and oriented x3, not in acute distress HEENT: Normocephalic atraumatic, extra-ocular movements intact, pupils equal and reactive to light bilaterally, mucous membranes moist. Cardiovascular: Heart regular rate and rhythm Chest: Able to complete full sentences, no retractions, no tachypnea Abdomen: abdomen soft, non-tender, non-distended, no organomegaly Musculoskeletal: Pulses present and equal in all extremities, no peripheral edema Motor: no focal deficits noted Neurological: CN II-XII grossly intact, no focal motor or sensory deficits noted Skin: Intact with no visualized rashes Psych: Normal affect and mood ED course: 36-year-old male presents emergency department for pleuritic back pain. Patient has any shortness of breath. Patient's well-appearing at the bedside. No concerns for PE given stable vital signs, no shortness of breath, no high-risk features and no lower extremity symptoms. Laboratory evaluation obtained. CBC, metabolic panel, abdominal labs. Chest x- ray abdominal x-ray unremarkable. Patient given analgesics. His regular bedside found to be stable medical condition. Patient's glucose presentation consistent with musculoskeletal strain causing pleurisy. Patient be discharged. - Related Data Previous Rx's Medication Instructions Recorded ARIPiprazole [Abilify Maintena] 400 mg IM Q28D #1 syr 07/31/19 Artificial Tears-Hypromellose 2 drops BOTH EYES QID PRN 28 Days 03/10/20 [Artificial Tear Drops] bottle Erythromycin Ophth Oint [Romycin 1 applic RIGHT EYE Q6HR 28 Days 03/10/20 Ophth Oint] applic Cyclobenzaprine [Flexeril] 10 mg PO TID 30 Days #90 tab 05/02/20 Ibuprofen [Motrin] 800 mg PO Q6HR #30 tab 05/02/20 methylPREDNISolone Dose Pack 24 mg PO DAILY #1 tab 05/09/20 [Medrol Dose Pack] Allergies Allergy/AdvReac Type Severity Reaction Status Date / Time tramadol Allergy Unknown Verified 10/17/21 07:17 Review of Systems ROS Statement: Those systems with pertinent positive or pertinent negative responses have been documented in the HPI. ROS Other: All systems not noted in ROS Statement are negative. Past Medical History Past Medical History: No Reported History Additional Past Medical History / Comment(s): chronic back pain, cataracts History of Any Multi-Drug Resistant Organisms: None Reported Past Surgical History: Orthopedic Surgery Additional Past Surgical History / Comment(s): ORIF left arm, nasal surgery due to fracture, left jaw, bilateral cataract removal and intraocular lens implants. Past Anesthesia/Blood Transfusion Reactions: No Reported Reaction Past Psychological History: ADD/ADHD, Anxiety, Bipolar, Depression Smoking Status: Current every day smoker Past Alcohol Use History: Occasional Past Drug Use History: None Reported - Past Family History Father Additional Family Medical History / Comment(s): Father is alive at age 59 with history of hypertension. Mother Additional Family Medical History / Comment(s): Mother is alive at age 61 with history of coronary artery disease status post CABG, CVA. Brother(s) Additional Family Medical History / Comment(s): Patient has 2 brothers and one has problems with kidney stones. Patient has 1 sister with no major medical problems. Patient has 1 daughter that is having problems with her heart. General Exam Limitations: no limitations Course Vital Signs 10/17/21 07:14 Temperature 97.7 F Pulse Rate 91 Respiratory 20 Rate Blood Pressure 129/82 O2 Sat by Pulse 100 Oximetry Medical Decision Making - Lab Data Result diagrams: 10/17/21 07:22 08/29/22 07:22 Lab Results 10/17/21 10/17/21 10/17/21 Range/Units 07:22 07:22 07:22 WBC 11.8 H (3.8-10.6) k/uL RBC 5.35 (4.30-5.90) m/uL Hgb 15.1 (13.0-17.5) gm/dL Hct 48.7 (39.0-53.0) % MCV 91.1 (80.0-100.0) fL MCH 28.2 (25.0-35.0) pg MCHC 31.0 (31.0-37.0) g/dL RDW 13.2 (11.5-15.5) % Plt Count 251 (150-450) k/uL MPV 7.5 Neutrophils % 54 % Lymphocytes % 34 % Monocytes % 5 % Eosinophils % 3 % Basophils % 1 % Neutrophils # 6.4 (1.3-7.7) k/uL Lymphocytes # 4.0 (1.0-4.8) k/uL Monocytes # 0.6 (0-1.0) k/uL Eosinophils # 0.4 (0-0.7) k/uL Basophils # 0.1 (0-0.2) k/uL Sodium 141 (137-145) mmol/L Potassium 4.5 (3.5-5.1) mmol/L Chloride 104 (98-107) mmol/L Carbon Dioxide 27 (22-30) mmol/L Anion Gap 10 mmol/L BUN 18 (9-20) mg/dL Creatinine 1.32 H (0.66-1.25) mg/dL Est GFR (CKD-EPI)AfAm 80 (>60 ml/min/1.73 sqM) Est GFR (CKD-EPI)NonAf 69 (>60 ml/min/1.73 sqM) Glucose 85 (74-99) mg/dL Calcium 9.1 (8.4-10.2) mg/dL Total Bilirubin 0.5 (0.2-1.3) mg/dL AST 26 (17-59) U/L ALT 30 (4-49) U/L Alkaline Phosphatase 96 (38-126) U/L Total Protein 8.3 H (6.3-8.2) g/dL Albumin 4.6 (3.5-5.0) g/dL Lipase 161 (23-300) U/L Urine Color Yellow Urine Appearance Clear (Clear) Urine pH 5.5 (5.0-8.0) Ur Specific Sarah 1.027 (1.001-1.035) Urine Protein Trace H (Negative) Urine Glucose (UA) Negative (Negative) Urine Ketones Negative (Negative) Urine Blood Negative (Negative) Urine Nitrite Negative (Negative) Urine Bilirubin Negative (Negative) Urine Urobilinogen <2.0 (<2.0) mg/dL Ur Leukocyte Esterase Negative (Negative) Disposition Clinical Impression: Back strain Disposition: HOME SELF-CARE Condition: Good Instructions (If sedation given, give patient instructions): Pleurisy (ED) Is patient prescribed a controlled substance at d/c from ED?: No Referrals: Enmanuel Iqbal MD [Primary Care Provider] - 1-2 days Time of Disposition: 09:01
[2021-10-17 07:43] LABS: Basophils # (A) 0.1 k/uL (0-0.2); Basophils % (A) 1 %; Eosinophils # (A) 0.4 k/uL (0-0.7); Eosinophils % (A) 3 %; HCT 48.7 % (39.0-53.0); HGB 15.1 gm/dL (13.0-17.5); Lymphocytes % (A) 34 %; MCH 28.2 pg (25.0-35.0); MCV 91.1 fL (80.0-100.0); Mean Platelet Volume 7.5; Monocytes # (A) 0.6 k/uL (0-1.0); Monocytes % (A) 5 %; Neutrophils # (A) 6.4 k/uL (1.3-7.7); Neutrophils % (A) 54 %; Platelet Count 251 k/uL (150-450); RBC 5.35 m/uL (4.30-5.90); RDW 13.2 % (11.5-15.5); WBC 11.8 k/uL (3.8-10.6)
[2021-10-17 07:55] LABS: Albumin 4.6 g/dL (3.5-5.0); Calcium 9.1 mg/dL (8.4-10.2); Potassium 4.5 mmol/L (3.5-5.1); Total Bilirubin 0.5 mg/dL (0.2-1.3); Total Protein 8.3 g/dL (6.3-8.2)
--- NOTE | 2021-10-17 08:10 | XR ---
EXAMINATION TYPE: XR abdomen acute w cxr DATE OF EXAM: 10/17/2021 7:58 AM INDICATION: Patient age:Male; 36 years old; Reason for study: left flank pain with coughing; COMPARISON: None. TECHNIQUE: Two radiographic views of the abdomen (upright and supine) and a frontal chest radiograph were obtained. FINDINGS CHEST: Lungs/Pleura: The lungs are clear. There is no evidence of pleural effusion, focal consolidation or p neumothorax. Mediastinum: Unremarkable. Vasculature: Normal. Heart: Normal in size. Musculoskeletal: The osseous structures are intact. Other findings: No significant. FINDINGS ABDOMEN: Bowel gas pattern: Normal without dilated loops of small or large bowel. Fecal material and gas are d emonstrated throughout the colon and rectum. Abnormal calcifications: None. Musculoskeletal: Suggestive of cam deformities of the bilateral femoral heads. Other: None. IMPRESSION: 1. No radiographic evidence for acute abdominal process. 2. No acute cardiopulmonary process
[2021-10-17 08:52] LABS: Appearance,Urine Clear (Clear); Bilirubin,Urine Negative (Negative); Blood,Urine Negative (Negative); Color,Urine Yellow; Glucose,Urine (UA) Negative (Negative); Ketones,Urine Negative (Negative); Leukocyte Esterase,Urine Negative (Negative); Nitrite,Urine Negative (Negative); PH, Urine 5.5 (5.0-8.0); Protein,Urine Trace (Negative); Specific Gravity,Urine 1.027 (1.001-1.035); Urobilinogen,Urine <2.0 mg/dL (<2.0)
[2021-10-17 09:09] VITALS: BP 122/68; PULSE 88; RESP 18; TEMP 98.2
== END 2021-10-17 09:09 | disposition home or self-care (01) ==
LOC: EC 07:12
DX: S39.012A Strain of muscle, fascia and tendon of lower back, initial encounter (principal); F90.9 Attention-deficit hyperactivity disorder, unspecified type; F41.9 Anxiety disorder, unspecified; F31.9 Bipolar disorder, unspecified; F17.200 Nicotine dependence, unspecified, uncomplicated; Z72.89 Other problems related to lifestyle; Z88.5 Allergy status to narcotic agent
CPT/HCPCS: 36415; 74022; 80053; 81003; 83690; 85025; 99284